=== PATIENT | male | born 1970 ===

== ENCOUNTER 2017-02-21 17:46 | Emergency (ER) | payer OTHER ==
[2017-02-21 17:50] VITALS: BMI 35.1
[2017-02-21 18:48] VITALS: RESP 18; TEMP 98.1; O2SAT 97
--- NOTE | 2017-02-21 18:52 | RAD ---
HISTORY: Chest pain. COMPARISON: No prior. TECHNIQUE: Chest PA and lateral FINDINGS: LUNGS: No active pulmonary disease. PLEURA: No significant pleural effusion identified. No pneumothorax apparent. CARDIOVASCULAR: Normal. OSSEOUS STRUCTURES: No significant abnormalities. VISUALIZED UPPER ABDOMEN: Normal. OTHER FINDINGS: None. IMPRESSION: No active disease. No preliminary report provided by emergency department personnel.
[2017-02-21 18:54] LABS: BASO # 0.03 K/mm3 (0.0-2.0); BASO % 0.4 % (0.0-3.0); EOS # 0.1 (0.0-0.7); GRAN # 4.71 (1.4-6.5); GRAN % 67.1 % (50.0-68.0); HEMOGLOBIN 15.4 g/dL (14.0-18.0); LYMPH # 1.5 (1.2-3.4); LYMPH % 21.4 % (22.0-35.0); MEAN CELL VOLUME 82.8 fl (80.0-105.0); MEAN CORPUSCULAR HEMOGLOBIN 29.8 pg (25.0-35.0); MEAN PLATELET VOLUME 9.8 fl (7.0-11.0); MONO # 0.6 (0.1-0.6); MONO % 9.1 % (1.0-6.0); PLATELET COUNT 227 10^3/uL (120.0-450.0); RBC 5.17 10^6/uL (3.5-6.1); RED CELL DISTRIBUTION WIDTH 12.2 % (11.5-14.5)
[2017-02-21 18:57] LABS: ALB/GLOB RATIO 1.2 (1.1-1.8); ALBUMIN 4.1 g/dL (3.0-4.8); ALT/SGPT 82 U/L (7-56); AST/SGOT 41 U/L (15-59); BLOOD UREA NITROGEN 14 mg/dL (7-21); GFR AFRICAN-AMERICAN > 60; GFR NON-AFRICAN AMERICAN > 60
[2017-02-21 19:07] LABS: TROPONIN I < 0.01 ng/mL
--- NOTE | 2017-02-21 19:36 | ED PDOC ---
Arrival/HPI - General Chief Complaint: Chest Pain Time Seen by Provider: 02/21/17 18:15 Historian: Patient - History of Present Illness Narrative History of Present Illness (Text): 02/21/17 19:44 A 46 year old male presents to the emergency department complaining of left sided chest pain daily for months. Notes pain radiates to left arm and burning sensation, actually feels better with exertion. Per ems he has been to [facility] three times in the past couple of weeks for similar symptoms and pt confirms this. He says "they all know me there." Patient notes taking Nitro prior to arrival with relief. Patient notes some shortness of breath but denies any other complaints at this time. Currently doesn't have any chest pain. Reports he had a cardiac catheterization done in 2014, which showed no blockage. Medications: Gabapentin, Flexeril, Naproxen (for migraines) Time/Duration: > month Symptom Onset: Sudden Symptom Course: Unchanged Activities at Onset: Rest Context: Home Past Medical History - Provider Review Nursing Documentation Reviewed: Yes - Cardiac Hx Cardiac Disorders: Yes Hx Angina: Yes - Psychiatric Hx Psychophysiologic Disorder: Yes Hx Substance Use: No Family/Social History - Physician Review Nursing Documentation Reviewed: Yes Family/Social History: No Known Family HX Smoking Status: Former Smoker Hx Alcohol Use: No Hx Substance Use: No Allergies/Home Meds Allergies/Adverse Reactions: Allergies No Known Allergies Allergy (Verified 02/21/17 17:50) Home Medications: Home Meds Medication Instructions Recorded Confirmed Acetaminophen [Tylenol Extra 500 mg PO Q6 02/21/17 02/21/17 Strength] Aspirin [Ecotrin] 81 mg PO DAILY 02/21/17 02/21/17 Cyclobenzaprine [Flexeril] 5 mg PO DAILY 02/21/17 02/21/17 Gabapentin [Gralise] 300 mg PO BID 02/21/17 02/21/17 Meclizine HCl [Travel Sickness] 1 tab PO DAILY PRN 02/21/17 02/21/17 Naproxen Sodium [Aleve] 220 mg PO 02/21/17 Nitroglycerin 0.4 mg SL PRN PRN 02/21/17 02/21/17 Ranitidine HCl [Zantac] 150 mg PO HS 02/21/17 02/21/17 diaZEpam [Valium] 5 mg PO DAILY PRN 02/21/17 02/21/17 diltiaZEM [Cardizem] 120 mg PO DAILY 02/21/17 02/21/17 Review of Systems - Physician Review All systems were reviewed & negative as marked: Yes - Review of Systems Respiratory: SOB Cardiovascular: Chest Pain Musculoskeletal: Other (left arm pain) Physical Exam Vital Signs Reviewed: Yes Vital Signs Temp Pulse Resp BP Pulse Ox 02/21/17 19:47 82 18 135/75 97 02/21/17 17:59 98.1 F 89 18 149/94 H 97 Temperature: Afebrile Blood Pressure: Hypertensive Pulse: Regular Respiratory Rate: Normal Appearance: Positive for: Well-Appearing, Non-Toxic, Comfortable Pain Distress: None Mental Status: Positive for: Alert and Oriented X 3 - Systems Exam Head: Present: Atraumatic, Normocephalic Pupils: Present: PERRL Extroacular Muscles: Present: EOMI Conjunctiva: Present: Normal Mouth: Present: Moist Mucous Membranes Neck: Present: Normal Range of Motion Respiratory/Chest: Present: Clear to Auscultation, Good Air Exchange. No: Respiratory Distress, Accessory Muscle Use Cardiovascular: Present: Regular Rate and Rhythm, Normal S1, S2. No: Murmurs Abdomen: Present: Normal Bowel Sounds. No: Tenderness, Distention, Peritoneal Signs Back: Present: Normal Inspection Upper Extremity: Present: Normal Inspection. No: Cyanosis, Edema Lower Extremity: Present: Normal Inspection. No: Edema Neurological: Present: GCS=15, CN II-XII Intact, Speech Normal Skin: Present: Warm, Dry, Normal Color. No: Rashes Psychiatric: Present: Alert, Oriented x 3, Normal Insight, Normal Concentration Medical Decision Making ED Course and Treatment: 02/21/17 18:54 chest xray: Creator : Quincy De La Cruz MD IMPRESSION: No active disease. EKG: Ordered, reviewed, and independently interpreted the EKG. Rate : 87 BPM Rhythm : NSR Interpretation : normal axis, normal intervals, no acute ischemia 1999 the pt is sitting up in a chair, appears well, no distress, no chest pain at this time. on further questioning he says he was offered a cardiac cath at [facility] [place] weeks ago and refused and he still does not wish to have one. I disc options for doing a repeat trop at 3 hours vs admission overnight for observation. he does not wish to stay for either of these. he will call his network operations project manager tomorrow for follow up and return if worse. - Lab Interpretations Lab Results: 02/21/17 18:35 02/21/17 18:35 Lab Results 02/21/17 18:35: Sodium 139, Potassium 3.8, Chloride 101, Carbon Dioxide 26, Anion Gap 16, BUN 14, Creatinine 1.0, Est GFR ( Amer) > 60, Est GFR (Non- Af Amer) > 60, Random Glucose 94, Calcium 9.0, Total Bilirubin 0.6, AST 41, ALT 82 H, Alkaline Phosphatase 118, Troponin I < 0.01, Total Protein 7.5, Albumin 4.1, Globulin 3.4, Albumin/Globulin Ratio 1.2 02/21/17 18:35: WBC 7.0, RBC 5.17, Hgb 15.4, Hct 42.8, MCV 82.8, MCH 29.8, MCHC 36.0, RDW 12.2, Plt Count 227, MPV 9.8, Gran % 67.1, Lymph % (Auto) 21.4 L, [place] % (Auto) 9.1 H, Eos % (Auto) 2.0, Baso % (Auto) 0.4, Gran # 4.71, Lymph # 1.5, [place] # 0.6, Eos # 0.1, Baso # 0.03 I have reviewed the lab results: Yes - RAD Interpretation Radiology Orders: 02/21/17 18:20 CHEST TWO VIEWS (PA/LAT) [RAD] Stat - EKG Interpretation Interpreted by ED Physician: Yes Type: 12 lead EKG - Scribe Statement The provider has reviewed the documentation as recorded by the Elian Ley Provider Scribe Attestation: All medical record entries made by the Elian were at my direction and personally dictated by me. I have reviewed the chart and agree that the record accurately reflects my personal performance of the history, physical exam, medical decision making, and the department course for this patient. I have also personally directed, reviewed, and agree with the discharge instructions and disposition. Disposition/Present on Arrival - Present on Arrival Any Indicators Present on Arrival: No History of DVT/PE: No History of Uncontrolled Diabetes: No Urinary Catheter: No History of Decub. Ulcer: No History Surgical Site Infection Following: None - Disposition Have Diagnosis and Disposition been Completed?: Yes Diagnosis: Chest pain Disposition: HOME/ ROUTINE Disposition Time: 20:02 Condition: STABLE Discharge Instructions (ExitCare): Chest Pain (ED) Additional Instructions: Please follow up with your network operations project manager tomorrow. Return to the ER for any worsening symptoms or for any other concerns. Referrals: Deanna Ahumada [Primary Care Provider] - Follow up with primary Forms: [employer] (Sao Tomean)
[2017-02-22 00:20] VITALS: BP 135/75; PULSE 82
--- NOTE | 2017-02-22 23:32 | CARD ---
APPROVED REPORT EKG Measurement Heart [id number] CO [id number] [id number] <Conclusion> Normal sinus rhythm Septal infarct, age undetermined Abnormal ECG
== END 2017-02-21 20:10 | disposition home or self-care (01) ==
LOC: ED 17:46 → MERGE 17:46 → ED 20:10
DX: R07.9 Chest pain, unspecified (principal)

== ENCOUNTER 2017-03-19 08:41 | Emergency (ER) | payer OTHER ==
[2017-03-19 08:41] VITALS: BMI 35.1
--- NOTE | 2017-03-19 09:03 | ED PDOC ---
Arrival/HPI - General Chief Complaint: Chest Pain Time Seen by Provider: 03/19/17 08:43 Historian: Patient - History of Present Illness Narrative History of Present Illness (Text): 03/19/17 09:02 A 46 year old male, whose past medical history includes hypertension, angina, and anxiety, arrives to the emergency department out of concern of recurring symptoms since 03:00. Patient reports experiencing trembling, spasms, numbness in the arms, anxiety, and sleep apnea. He states he has had the symptoms before many times, and today body felt immobile so he became concerned. Has visited his physician for symptoms various times. Patient mentions receiving catherization 07/[address] [facility] [place], results displayed no blockage. X-Rays were also taken for patient 2 months ago. Patient notes slight abdominal pain, but denies of any shortness of breath, nausea, vomiting, chills, or any other complaints. PMD: Dr. Tompkins Time/Duration: Other (today at 03:00) Symptom Onset: Gradual Symptom Course: Unchanged Context: Home Associated Symptoms (Text): 03/19/17 09:26 Patient awoken in the middle of the night with severe anxiety and chest spasm. No dyspnea. No diaphoresis. No nausea or vomiting. He has similar symptoms on a practically daily basis. He started to see a psychiatrist for these problems, but is currently not taking anything for his anxiety. He reports he takes Neurontin and Valium for his chest spasms. He reports a normal cardiac catheterization in 2014. He's been seen in [facility] multiple times for similar complaints. He was seen here approximately one month ago for similar complaints. He denies depression. No suicidal or homicidal ideation. 03/19/17 09:30 He took nitroglycerin this morning with some improvement. He takes daily aspirin. Past Medical History - Provider Review Nursing Documentation Reviewed: Yes - Cardiac Hx Cardiac Disorders: Yes Hx Angina: Yes Hx Hypertension: Yes - Psychiatric Hx Psychophysiologic Disorder: Yes Hx Anxiety: Yes Hx Substance Use: No Family/Social History - Physician Review Nursing Documentation Reviewed: Yes Family/Social History: No Known Family HX Smoking Status: Former Smoker Hx Alcohol Use: No Hx Substance Use: No Allergies/Home Meds Allergies/Adverse Reactions: Allergies ranitidine [From Zantac] Allergy (Verified 03/19/17 08:49) RASH quetiapine [From Seroquel] Adverse Reaction (Verified 03/19/17 08:49) URTICARIA Home Medications: Home Meds Medication Instructions Recorded Confirmed Acetaminophen [Tylenol Extra 500 mg PO Q6 02/21/17 03/19/17 Strength] Aspirin [Ecotrin] 81 mg PO DAILY 02/21/17 03/19/17 Gabapentin [Gralise] 300 mg PO BID 02/21/17 03/19/17 Meclizine HCl [Travel Sickness] 1 tab PO DAILY PRN 02/21/17 03/19/17 Nitroglycerin 0.4 mg SL PRN PRN 02/21/17 03/19/17 Ranitidine HCl [Zantac] 150 mg PO HS 02/21/17 03/19/17 diaZEpam [Valium] 5 mg PO DAILY PRN 02/21/17 03/19/17 diltiaZEM [Cardizem] 120 mg PO DAILY 02/21/17 03/19/17 Review of Systems - Physician Review All systems were reviewed & negative as marked: Yes - Review of Systems Constitutional: absent: Fevers, Night Sweats Respiratory: absent: SOB Cardiovascular: Chest Pain. absent: Palpitations, Syncope Gastrointestinal: Abdominal Pain (slightly). absent: Nausea, Vomiting Neurological: Other (numbness of arms, trembling, spasms). absent: Headache, Dizziness, Focal Weakness Psychiatric: Anxiety Physical Exam Vital Signs Reviewed: Yes Vital Signs Temp Pulse Resp BP BP Pulse Ox 03/19/17 09:29 97.7 F 84 16 143/81 97 03/19/17 08:59 154/97 H Temperature: Afebrile Blood Pressure: Hypertensive Pulse: Regular Respiratory Rate: Normal Appearance: Positive for: Well-Appearing, Other (Extremely anxious) Pain Distress: None Mental Status: Positive for: Alert and Oriented X 3 - Systems Exam Head: Present: Atraumatic, Normocephalic Pupils: Present: PERRL Extroacular Muscles: Present: EOMI Conjunctiva: Present: Normal Mouth: Present: Moist Mucous Membranes Pharnyx: No: ERYTHEMA, EXUDATE, TONSILS ENLARGED Neck: Present: Normal Range of Motion Respiratory/Chest: Present: Clear to Auscultation, Good Air Exchange. No: Respiratory Distress, Accessory Muscle Use Cardiovascular: Present: Regular Rate and Rhythm, Normal S1, S2. No: Murmurs Abdomen: Present: Normal Bowel Sounds. No: Tenderness, Distention, Peritoneal Signs Back: Present: Normal Inspection Upper Extremity: Present: Normal Inspection. No: Cyanosis, Edema Lower Extremity: Present: Normal Inspection. No: Edema Neurological: Present: GCS=15, CN II-XII Intact, Speech Normal, Motor Func Grossly Intact Skin: Present: Warm, Dry, Normal Color. No: Rashes Psychiatric: Present: Alert, Oriented x 3, Normal Insight, Normal Concentration , Anxious. No: Agitated, Depressed Mood, Suicidal Ideation, Homicidal Ideation , Delusional, Hallucinations, Intoxicated Medical Decision Making ED Course and Treatment: 03/19/17 09:06 Impression: 46 year old male with trembling, spasms, numbness of arms, and sleep apnea. Physical exam shows patient is anxious, otherwise rest of exam is normal. Plan: -- EKG -- Labs -- Urinalysis -- Reassess and disposition Prior Visits: Notes and results from previous visits were reviewed. On 02/21/2017 for left sided chest pain. Patient was discharged home. Progress Notes: 03/19/17 09:29 EKG shows normal sinus rhythm rate approximately [address] or T-wave changes 03/19/17 10:04 Patient is sleeping soundly, but easily aroused. He states that he feels better and wants to go home. He is going to call his mother to pick him up. I believe that this is anxiety related. 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 Follow up in the ER as needed. Offered observation or crisis evaluation and patient refuses both. - Lab Interpretations Lab Results: 03/19/17 09:20 03/19/17 09:20 Lab Results 03/19/17 09:20: Sodium 140, Potassium 3.9, Chloride 101, Carbon Dioxide 27, Anion Gap 16, BUN 15, Creatinine 0.9, Est GFR ( Amer) > 60, Est GFR (Non- Af Amer) > 60, Random Glucose 96, Calcium 9.1, Magnesium 1.9, Total Bilirubin 0.6, AST 49, ALT 100 H, Alkaline Phosphatase 118, Lactate Dehydrogenase 457, Total Creatine Kinase 91, Troponin I < 0.01, Total Protein 7.7, Albumin 4.4, Globulin 3.3, Albumin/Globulin Ratio 1.3 09/02/17 09:20: WBC 6.3, RBC 5.41, Hgb 16.1, Hct 45.5, MCV 84.1, MCH 29.8, MCHC 35.4, RDW 12.4, Plt Count 222, MPV 9.7, Gran % 65.3, Lymph % (Auto) 23.2, [place] % (Auto) 7.9 H, Eos % (Auto) 3.3, Baso % (Auto) 0.3, Gran # 4.14, Lymph # 1.5, [place] # 0.5, Eos # 0.2, Baso # 0.02 I have reviewed the lab results: Yes - Scribe Statement The provider has reviewed the documentation as recorded by the Jeremyibsuzie Brock Provider Scribe Attestation: All medical record entries made by the Scribe were at my direction and personally dictated by me. I have reviewed the chart and agree that the record accurately reflects my personal performance of the history, physical exam, medical decision making, and the department course for this patient. I have also personally directed, reviewed, and agree with the discharge instructions and disposition. Disposition/Present on Arrival - Present on Arrival Any Indicators Present on Arrival: No History of DVT/PE: No History of Uncontrolled Diabetes: No Urinary Catheter: No History of Decub. Ulcer: No History Surgical Site Infection Following: None - Disposition Have Diagnosis and Disposition been Completed?: Yes Diagnosis: Anxiety, Chest pain Disposition: HOME/ ROUTINE Disposition Time: 10:05 Patient Plan: Discharge Condition: GOOD Discharge Instructions (ExitCare): Chest Pain (ED), Anxiety (ED) Additional Instructions: Follow-up with your PMD and psychiatrist. Follow up in the ER as needed. Referrals: Deanna Ahumada [Primary Care Provider] - Follow up with primary Forms: [email or web address] ([place] Arabian)
[2017-03-19 09:31] VITALS: RESP 16; TEMP 97.7
[2017-03-19 09:39] LABS: ALB/GLOB RATIO 1.3 (1.1-1.8); ALKALINE PHOSPHATASE 118 U/L (38-126); ALT/SGPT 100 U/L (7-56); AST/SGOT 49 U/L (17-59); BILIRUBIN,TOTAL 0.6 mg/dL (0.2-1.3); BLOOD UREA NITROGEN 15 mg/dL (7-21); CALCIUM 9.1 mg/dL (8.4-10.5); CARBON DIOXIDE 27 mmol/L (21-33); CHLORIDE 101 mmol/L (98-107); GFR AFRICAN-AMERICAN > 60; GLUCOSE,RANDOM 96 mg/dL (70-110); MAGNESIUM 1.9 mg/dL (1.7-2.2); POTASSIUM 3.9 mmol/L (3.6-5.0); SODIUM 140 mmol/L (132-148); TOTAL PROTEIN 7.7 g/dL (5.8-8.3)
[2017-03-19 09:45] LABS: BASO # 0.02 K/mm3 (0.0-2.0); BASO % 0.3 % (0.0-3.0); EOS # 0.2 (0.0-0.7); EOS % 3.3 % (1.5-5.0); GRAN # 4.14 (1.4-6.5); GRAN % 65.3 % (50.0-68.0); HEMATOCRIT 45.5 % (42.0-52.0); LYMPH # 1.5 (1.2-3.4); LYMPH % 23.2 % (22.0-35.0); MEAN CELL VOLUME 84.1 fl (80.0-105.0); MEAN CORPUSCULAR HEMOGLOBIN 29.8 pg (25.0-35.0); MEAN CORPUSCULAR HGB CONC 35.4 g/dl (31.0-37.0); MEAN PLATELET VOLUME 9.7 fl (7.0-11.0); MONO # 0.5 (0.1-0.6); MONO % 7.9 % (1.0-6.0); RED CELL DISTRIBUTION WIDTH 12.4 % (11.5-14.5); WHITE BLOOD COUNT 6.3 10^3/ul (4.5-11.0)
[2017-03-19 09:51] LABS: TROPONIN I < 0.01 ng/mL
[2017-03-19 10:17] LABS: URINE BILIRUBIN NEGATIVE (NEGATIVE); URINE BLOOD TRACE-LYSED (NEGATIVE); URINE GLUCOSE (UA) NEGATIVE (NEGATIVE); URINE KETONE NEGATIVE (NEGATIVE); URINE LEUKOCYTE ESTERASE NEGATIVE Leu/uL (NEGATIVE); URINE PROTEIN NEGATIVE mg/dL (<30 mg/dL); URINE UROBILINOGEN 0.2 E.U./dL (<1 E.U./dL)
[2017-03-19 10:22] VITALS: BP 145/94; PULSE 85; O2SAT 98
[2017-03-19 10:22] LABS: URINE APPEARANCE CLEAR (CLEAR); URINE COLOR LIGHT YELLOW (YELLOW)
[2017-03-19 10:34] LABS: URINE BACTERIA TRACE (NEG); URINE RBC 0 - 2 /hpf (0-2); URINE WBC NEGATIVE /hpf (0-6)
--- NOTE | 2017-03-20 01:58 | CARD ---
APPROVED REPORT EKG Measurement Heart [id number] RI [id number] <Conclusion> Normal sinus rhythm Normal ECG
== END 2017-03-19 10:22 | disposition home or self-care (01) ==
LOC: ED 08:41
DX: F41.9 Anxiety disorder, unspecified (principal); R07.9 Chest pain, unspecified; I10 Essential (primary) hypertension; Z87.891 Personal history of nicotine dependence

== ENCOUNTER 2017-04-08 14:52 | Emergency (ER) | payer OTHER ==
[2017-04-08 14:52] VITALS: BMI 35.1
--- NOTE | 2017-04-08 15:27 | ED PDOC ---
Arrival/HPI - General Time Seen by Provider: 04/08/17 14:55 Historian: Patient ( ) - History of Present Illness Narrative History of Present Illness (Text): 04/08/17 15:23 46 yo male h/o HTN, Angina (on nitro SL PRN), ex-smoker, Migraine, Partial Sz, Anxiety, presents to the ED c/o left sided chest pain that started today. It's consent and radiates a bit also from the side of his lower left ribs. It feels sharp in nature. No nausea or shortness of breathe. He did not take anything to alleviate the symptoms. Associated with weakness. He had a cardiac cath but did not have stents placed. The same pain occurred 2 weeks ago. No fever , cough, urinary complaints, abdominal pain. It does not feel like his anxiety. He is getting depressed because of his medical issues. Denies SI or HI. No delusions or hallucinations. PMD: Dr. Ahumada Past Medical History - Provider Review Nursing Documentation Reviewed: Yes - Cardiac Hx Cardiac Disorders: Yes Hx Angina: Yes Hx Hypertension: Yes - Psychiatric Hx Psychophysiologic Disorder: Yes Hx Anxiety: Yes Hx Substance Use: No Family/Social History - Physician Review Nursing Documentation Reviewed: Yes Family/Social History: No Known Family HX Smoking Status: Former Smoker Hx Alcohol Use: No Hx Substance Use: No Allergies/Home Meds Allergies/Adverse Reactions: Allergies ranitidine [From Zantac] Allergy (Verified 03/19/17 08:49) RASH quetiapine [From Seroquel] Adverse Reaction (Verified 03/19/17 08:49) URTICARIA Home Medications: Home Meds Medication Instructions Recorded Confirmed Acetaminophen [Tylenol Extra 500 mg PO Q6 02/21/17 04/08/17 Strength] Aspirin [Ecotrin] 81 mg PO DAILY 02/21/17 04/08/17 Gabapentin [Gralise] 300 mg PO BID 02/21/17 04/08/17 Meclizine HCl [Travel Sickness] 1 tab PO DAILY PRN 02/21/17 04/08/17 Nitroglycerin 0.4 mg SL PRN PRN 02/21/17 04/08/17 Ranitidine HCl [Zantac] 150 mg PO HS 02/21/17 04/08/17 diaZEpam [Valium] 5 mg PO DAILY PRN 02/21/17 04/08/17 diltiaZEM [Cardizem] 120 mg PO DAILY 02/21/17 04/08/17 Review of Systems - Review of Systems Constitutional: Normal Eyes: Normal ENT: Normal Respiratory: Normal Cardiovascular: Chest Pain Gastrointestinal: Normal Genitourinary Male: Normal Musculoskeletal: Normal Skin: Normal Neurological: Normal Endocrine: Normal Hemo/Lymphatic: Normal Psychiatric: Normal Physical Exam Vital Signs Reviewed: Yes Vital Signs Temp Pulse Resp BP Pulse Ox 04/08/17 15:31 98.2 F 95 H 18 130/75 98 Temperature: Afebrile Blood Pressure: Normal Pulse: Regular Respiratory Rate: Normal Appearance: Positive for: Well-Appearing, Non-Toxic, Comfortable Pain Distress: None Mental Status: Positive for: Alert and Oriented X 3 - Systems Exam Head: Present: Atraumatic, Normocephalic Pupils: Present: PERRL Extroacular Muscles: Present: EOMI Conjunctiva: Present: Normal Mouth: Present: Moist Mucous Membranes Neck: Present: Normal Range of Motion Respiratory/Chest: Present: Clear to Auscultation, Good Air Exchange. No: Respiratory Distress, Accessory Muscle Use Cardiovascular: Present: Regular Rate and Rhythm, Normal S1, S2. No: Murmurs Abdomen: Present: Normal Bowel Sounds. No: Tenderness, Distention, Peritoneal Signs Back: Present: Normal Inspection Upper Extremity: Present: Normal Inspection. No: Cyanosis, Edema Lower Extremity: Present: Normal Inspection. No: Edema Neurological: Present: GCS=15, CN II-XII Intact, Speech Normal Skin: Present: Warm, Dry, Normal Color. No: Rashes Psychiatric: Present: Alert, Oriented x 3, Normal Insight, Normal Concentration Medical Decision Making ED Course and Treatment: 04/08/17 15:32 46 yo with chest pain r/o ACS -- Labs -- EKG, CXR -- Nitro SL -- Aspirin -- Reevaluate and disposition Leaving Against Medical Advice (AMA): The patient is choosing to leave against medical advice because he's feeling better. I have personally explained to the patient that choosing to do so may result in permanent bodily harm or . I have discussed at great length that without further evaluation and monitoring there may be unforeseen circumstances and/or deterioration causing permanent bodily harm or as a result of their choice. The patient is alert, oriented, and shows the mental capacity to make clear decisions regarding the patients health care at this time. The patient continues to wish to leave against medical advice. The patient has been advised that they should return to the emergency room immediately if they change their mind at any time, or if their condition begins to change or worsen in any way. - Lab Interpretations Lab Results: 04/08/17 15:45 04/08/17 15:45 Lab Results 04/08/17 15:45: Sodium 139, Potassium 4.3, Chloride 102, Carbon Dioxide 27, Anion Gap 14, BUN 14, Creatinine 1.0, Est GFR ( Amer) > 60, Est GFR (Non- Af Amer) > 60, Random Glucose 97, Calcium 9.3, Magnesium 1.9, Total Bilirubin 0.5, AST 71 H D, ALT 132 H, Alkaline Phosphatase 119, Lactate Dehydrogenase 508 , Total Creatine Kinase 103, Troponin I < 0.01, Total Protein 7.3, Albumin 4.2, Globulin 3.1, Albumin/Globulin Ratio 1.4 04/08/17 15:45: PT 10.9, INR 1.01, APTT 26.7 04/08/17 15:45: WBC 6.5, RBC 5.20, Hgb 15.4, Hct 43.7, MCV 84.0, MCH 29.6, MCHC 35.2, RDW 12.3, Plt Count 218, MPV 9.7, Gran % 70.0 H, Lymph % (Auto) 19.5 L, [place] % (Auto) 8.0 H, Eos % (Auto) 2.2, Baso % (Auto) 0.3, Gran # 4.52, Lymph # 1.3, [place] # 0.5, Eos # 0.1, Baso # 0.02 - RAD Interpretation Radiology Orders: 04/08/17 15:19 CHEST PORTABLE [RAD] Stat - EKG Interpretation Interpreted by ED Physician: Yes (NSR [address] elevations, nl intervals ) Type: 12 lead EKG - Medication Orders Current Medication Orders: Discontinued Medications Aspirin (Aspirin) 325 mg PO STAT STA Stop: 04/08/17 15:20 Last Admin: 04/08/17 15:42 Dose: 325 mg Nitroglycerin (Nitrostat Sl Tab) 0.4 mg SL STAT STA Stop: 04/08/17 15:20 Last Admin: 04/08/17 15:49 Dose: Not Given Non-Admin Reason: Patient Refused Disposition/Present on Arrival - Present on Arrival Any Indicators Present on Arrival: No History of DVT/PE: No History of Uncontrolled Diabetes: No Urinary Catheter: No History Surgical Site Infection Following: None - Disposition Have Diagnosis and Disposition been Completed?: Yes Diagnosis: Chest pain Disposition: AGAINST MEDICAL ADVICE Disposition Time: 16:56 Patient Plan: Discharge Patient Problems: Current Active Problems Problem Status Onset Chest pain Acute Condition: IMPROVED Discharge Instructions (ExitCare): Chest Pain (ED) Additional Instructions: Mr Loco, thank you for letting us take care of you today. Your provider was Dr. Morgan. You were treated for Chest and Side Pain. The emergency medical care you received today was directed at your acute symptoms. If you were prescribed any medication, please fill it and take as directed. It may take several days for your symptoms to resolve. Return to the Emergency Department if your symptoms worsen, do not improve, or if you have any other problems. Please contact your doctor or call one of the physicians/clinics you have been referred to that are listed on the Patient Visit Information form that is included in your discharge packet. Bring any paperwork you were given at discharge with you along with any medications you are taking to your follow up visit. Our treatment cannot replace ongoing medical care by a primary care provider (PCP) outside of the emergency department. Thank you for allowing the [facility] team to be part of your care today. If you had an X-Ray or CT scan: A Radiologist will review the ED reading if any change in treatment is needed we will contact you. If you had a blood, urine, or wound culture: It will take several days for the results, if any change in treatment is needed we will contact you. If you had an STI test: It will take 48 hours for the results. Please call after 1 week if you have not heard back. Referrals: Deanna Ahumada [Primary Care Provider] - Follow up with primary Forms: [employer] (Amharic), WORK NOTE
[2017-04-08 15:32] VITALS: RESP 18; TEMP 98.2
[2017-04-08 15:54] LABS: BASO # 0.02 K/mm3 (0.0-2.0); BASO % 0.3 % (0.0-3.0); EOS # 0.1 (0.0-0.7); EOS % 2.2 % (1.5-5.0); GRAN # 4.52 (1.4-6.5); HEMATOCRIT 43.7 % (42.0-52.0); LYMPH # 1.3 (1.2-3.4); LYMPH % 19.5 % (22.0-35.0); MEAN CORPUSCULAR HEMOGLOBIN 29.6 pg (25.0-35.0); MEAN CORPUSCULAR HGB CONC 35.2 g/dl (31.0-37.0); MEAN PLATELET VOLUME 9.7 fl (7.0-11.0); MONO # 0.5 (0.1-0.6); RED CELL DISTRIBUTION WIDTH 12.3 % (11.5-14.5); WHITE BLOOD COUNT 6.5 10^3/ul (4.5-11.0)
[2017-04-08 16:07] LABS: ALB/GLOB RATIO 1.4 (1.1-1.8); ALKALINE PHOSPHATASE 119 U/L (38-126); ALT/SGPT 132 U/L (7-56); AST/SGOT 71 U/L (17-59); BILIRUBIN,TOTAL 0.5 mg/dL (0.2-1.3); BLOOD UREA NITROGEN 14 mg/dL (7-21); CALCIUM 9.3 mg/dL (8.4-10.5); CARBON DIOXIDE 27 mmol/L (21-33); CHLORIDE 102 mmol/L (98-107); GFR AFRICAN-AMERICAN > 60; GLUCOSE,RANDOM 97 mg/dL (70-110); MAGNESIUM 1.9 mg/dL (1.7-2.2); POTASSIUM 4.3 mmol/L (3.6-5.0); SODIUM 139 mmol/L (132-148); TOTAL PROTEIN 7.3 g/dL (5.8-8.3)
[2017-04-08 16:20] LABS: TROPONIN I < 0.01 ng/mL
--- NOTE | 2017-04-08 16:27 | RAD ---
HISTORY: Upper chest pain. Technique: Single view portable semi erect @ 15:39. COMPARISON: 02/21/2017. FINDINGS: LUNGS: No active pulmonary disease. PLEURA: No significant pleural effusion identified, no pneumothorax apparent. CARDIOVASCULAR: Normal. OSSEOUS STRUCTURES: No significant abnormalities. VISUALIZED UPPER ABDOMEN: Normal. OTHER FINDINGS: None. IMPRESSION: No active disease. No significant interval change compared to the prior examination(s).
[2017-04-08 16:45] LABS: INR 1.01 (0.93-1.08); PARTIAL THROMBOPLASTIN TIME 26.7 Seconds (23.7-30.8)
[2017-04-08 17:20] VITALS: BP 129/76; PULSE 90; O2SAT 100
--- NOTE | 2017-04-09 01:03 | CARD ---
APPROVED REPORT EKG Measurement Heart [id number] [place] 136P38 [id number] <Conclusion> Normal sinus rhythm Normal ECG
--- NOTE | 2017-04-09 01:04 | CARD ---
APPROVED REPORT EKG Measurement Heart [id number] 138P40 [id number] <Conclusion> Normal sinus rhythm Normal ECG
== END 2017-04-08 16:50 | disposition left against medical advice (07) ==
LOC: ED 14:52
DX: R07.9 Chest pain, unspecified (principal); I20.9 Angina pectoris, unspecified; I10 Essential (primary) hypertension; Z87.891 Personal history of nicotine dependence

== ENCOUNTER 2017-04-11 14:27 | Emergency (ER) | payer OTHER ==
[2017-04-11 14:27] VITALS: BMI 35.1
--- NOTE | 2017-04-11 14:44 | ED PDOC ---
Arrival/HPI - General Time Seen by Provider: 04/11/17 14:40 Historian: Patient - History of Present Illness Narrative History of Present Illness (Text): 04/11/17 14:44 A 46 year old male presents to the emergency department complaining of intermittent episodes of left flank pain for 2 weeks. Patient reports he has experienced 3 episodes and describes the pain as a pressure sensation, which resolves spontaneously. Patient denies any fever, chills, nausea, vomiting, abdominal pain, urinary symptoms, chest pain, shortness of breath or any other complaints. Time/Duration: Other (2 weeks) Symptom Course: Intermittent Quality: Other Context: Home Past Medical History - Provider Review Nursing Documentation Reviewed: Yes - Infectious Disease Hx of Infectious Diseases: None - Cardiac Hx Cardiac Disorders: Yes Hx Angina: Yes Hx Hypertension: Yes - Neurological Hx Migraine: Yes Hx Seizures: Yes - Psychiatric Hx Psychophysiologic Disorder: Yes Hx Anxiety: Yes Hx Substance Use: No - Surgical History Other/Comment: cardaic cath - Anesthesia Hx Anesthesia: Yes Hx Anesthesia Reactions: No Hx Malignant Hyperthermia: No Family/Social History - Physician Review Nursing Documentation Reviewed: Yes Family/Social History: No Known Family HX Smoking Status: Former Smoker Hx Alcohol Use: No Hx Substance Use: No Allergies/Home Meds Allergies/Adverse Reactions: Allergies ranitidine [From Zantac] Allergy (Verified 03/19/17 08:49) RASH quetiapine [From Seroquel] Adverse Reaction (Verified 03/19/17 08:49) URTICARIA Home Medications: Home Meds Medication Instructions Recorded Confirmed Acetaminophen [Tylenol Extra 500 mg PO Q6 02/21/17 04/08/17 Strength] Aspirin [Ecotrin] 81 mg PO DAILY 02/21/17 04/08/17 Gabapentin [Gralise] 300 mg PO BID 02/21/17 04/08/17 Meclizine HCl [Travel Sickness] 1 tab PO DAILY PRN 02/21/17 04/08/17 Nitroglycerin 0.4 mg SL PRN PRN 02/21/17 04/08/17 Ranitidine HCl [Zantac] 150 mg PO HS 02/21/17 04/08/17 diaZEpam [Valium] 5 mg PO DAILY PRN 02/21/17 04/08/17 diltiaZEM [Cardizem] 120 mg PO DAILY 02/21/17 04/08/17 Physical Exam - Physical Exam Narrative Physical Exam (Text): - Review of Systems Constitutional: Normal. absent: Fatigue, Weight Change, Fevers Eyes: Normal ENT: denies sore throat, denies tristhmus Respiratory: Normal. absent: SOB, Cough, Sputum Cardiovascular: absent: Chest Pain, Palpitations, Syncope Gastrointestinal: Normal. absent: Abdominal Pain, Diarrhea, Nausea, Vomiting Genitourinary: Normal. absent: Dysuria, Frequency, Hematuria Musculoskeletal: (+) Left flank pain absent: Arthralgias, Neck Pain Skin: no rashes, no erythema Neurological: absent: Focal Weakness Endocrine: Normal Hemo/Lymphatic: Normal Psychiatric: No suicidal or homicidal ideations Physical exam Patient appears age appropriate in no distress, speaking full sentences without difficulty - Systems Exam Head: Present: Atraumatic, Normocephalic Pupils: Present: PERRL Extroacular Muscles: Present: EOMI Conjunctiva: Present: Normal Mouth: Present: Moist Mucous Membranes Neck: Present: Normal Range of Motion. No: MIDLINE TENDERNESS, Paraspinal Tenderness Respiratory/Chest: Present: Clear to Auscultation, Good Air Exchange. No: Respiratory Distress, Accessory Muscle Use, Tachypneic Cardiovascular: Present: Regular Rate and Rhythm, Normal S1, S2, Peripheal Pulses Present. No: Murmurs Abdomen: Present: Normal Bowel Sounds. No: Tenderness, Distention, Peritoneal Signs, Rebound, Guarding Back: Present: Normal Inspection. No: Midline Tenderness, Paraspinal Tenderness Upper Extremity: Present: Normal Inspection. No: Cyanosis, Edema Lower Extremity: Present: Normal Inspection. No: Edema Neurological: Present: GCS=15, Speech Normal, cranial nerves II through XII fully intact with no cerebellar abnormality, neurosensory fully intact. No focal neurological deficits. Skin: Present: Warm, Dry, Normal Color. No: Rashes Lymphatic: Present: OX3, NI, NC Psychiatric: Present: Alert, Oriented x 3, Normal Insight, Normal Concentration Vital Signs Temp Pulse Resp BP Pulse Ox 04/11/17 18:01 79 18 148/89 98 04/11/17 15:09 89 18 157/97 H 98 04/11/17 14:50 98.7 F 89 18 157/97 H 98 Appearance: Positive for: Well-Appearing, Non-Toxic, Comfortable Pain Distress: None Mental Status: Positive for: Alert and Oriented X 3 Medical Decision Making ED Course and Treatment: 04/11/17 14:44 Impression: A 46 year old male with left flank pain. Physical exam unremarkable. Differential Diagnosis included but are not limited to: Renal colic vs. Musculoskeletal Plan: -- Abdomen and pelvis CT -- EKG -- Labs -- Urinalysis -- Toradol and IV fluids -- Reassess and disposition Prior Visits: Previous records reviewed, patient was in the emergency department on 04/08/17, signed out AGAINST MEDICAL ADVICE. Patient was seen prior to this on 03/19/17 with numbness of his arms, trembling, spasms, anxiety. Patient was discharged home. Progress Notes: 04/11/17 16:59 pt resting comfortably in bed, in no distress CT read pending 04/11/17 17:33 CT Abdomen and Pelvis without intravenous contrast Creator : FREDDY DURON MD IMPRESSION: 1. 2 mm nonobstructing stone in the lower pole of the right kidney. No hydronephrosis or obstructive uropathy. 2. No CT evidence for acute appendicitis. 3. Mild colonic diverticulosis is also gliosis diverticulitis 04/11/17 17:46 CT IMPRESSION: 1. 2 mm nonobstructing stone in the lower pole of the right kidney. No hydronephrosis or obstructive uropathy. 2. No CT evidence for acute appendicitis. 3. Mild colonic diverticulosis is also gliosis diverticulitis pt in no distress states pain much better states he feels comfortable being dc'd home with outpatient f/u pt also informed that he has hematuria and need to f/u with his PMD for further w/u and testing Pt states he understands to return to the ER right away for new or worsening symptoms or for inability to f/u with PMD or specialist as instructed. Patient states that he fully agrees with and understands discharge instructions. States that he agrees with the plan and disposition. Verbalized and repeated discharge instructions and plan. I have given the patient opportunity to ask any additional questions. - Lab Interpretations Lab Results: 04/11/17 15:20 04/11/17 15:20 Lab Results 04/11/17 16:00: Urine Color Straw, Urine Appearance Clear, Urine pH 7.5, Ur Specific [place] 1.010, Urine Protein Negative, Urine Glucose (UA) Negative, Urine Ketones Negative, Urine Blood Trace-intact H, Urine Nitrate Negative, Urine Bilirubin Negative, Urine Urobilinogen 0.2, Ur Leukocyte Esterase Negative , Urine RBC 0 - 2, Urine WBC 0 - 2, Ur Epithelial Cells 0 - 2 04/11/17 15:20: PT 10.8, INR 1.00, APTT 26.3 04/11/17 15:20: WBC 7.3, RBC 5.26, Hgb 15.6, Hct 43.7, MCV 83.1, MCH 29.7, MCHC 35.7, RDW 12.3, Plt Count 231, MPV 9.8, Gran % 73.9 H, Lymph % (Auto) 16.8 L, [place] % (Auto) 7.8 H, Eos % (Auto) 1.2 L, Baso % (Auto) 0.3, Gran # 5.37, Lymph # 1.2, [place] # 0.6, Eos # 0.1, Baso # 0.02 04/11/17 15:20: Sodium 141, Potassium 4.3, Chloride 102, Carbon Dioxide 30, Anion Gap 13, BUN 15, Creatinine 0.9, Est GFR ( Amer) > 60, Est GFR (Non- Af Amer) > 60, Random Glucose 95, Calcium 9.5, Total Bilirubin 0.6, AST 51, ALT 113 H, Alkaline Phosphatase 115, Lactate Dehydrogenase 504, Total Creatine Kinase 88, Troponin I < 0.01, Total Protein 7.5, Albumin 4.3, Globulin 3.2, Albumin/Globulin Ratio 1.3 I have reviewed the lab results: Yes - RAD Interpretation Radiology Orders: 04/11/17 14:57 ABD & PELVIS W/O PO OR IV CONT [CT] Stat - Medication Orders Current Medication Orders: Discontinued Medications Sodium Chloride (Sodium Chloride 0.9%) 1,000 mls @ 1,000 mls/hr IV .Q1H STA Stop: 04/11/17 15:55 Last Admin: 04/11/17 15:16 Dose: 1,000 mls/hr eMAR Start Stop Document 04/11/17 15:16 DE (Rec: 04/11/17 15:16 DE [id number]) Intravenous Solution Start Date 04/11/17 Start Time 15:16 Ketorolac Tromethamine (Toradol) 30 mg IVP STAT STA Stop: 04/11/17 14:57 Last Admin: 04/11/17 15:16 Dose: 30 mg MAR Pain Assessment Document 04/11/17 15:16 NH (Rec: 04/11/17 15:17 DE [id number]) Pain Reassessment Is this a pain reassessment? No Sleep Is patient sleeping during reassessment? No Presence of Pain Presence of Pain No Pain Scale Used Pain Scale Used Numeric Location Pain Location Body Site Abdomen Description Description Intermittent IVP Administration Document 04/11/17 15:16 NH (Rec: 04/11/17 15:17 DE [id number]) Charges for Administration # of IVP Administrations 1 - Scribe Statement The provider has reviewed the documentation as recorded by the Jeremyibsuzie Chris Provider Scribe Attestation: All medical record entries made by the Scribe were at my direction and personally dictated by me. I have reviewed the chart and agree that the record accurately reflects my personal performance of the history, physical exam, medical decision making, and the department course for this patient. I have also personally directed, reviewed, and agree with the discharge instructions and disposition. Disposition/Present on Arrival - Present on Arrival Any Indicators Present on Arrival: No History of DVT/PE: No History of Uncontrolled Diabetes: No Urinary Catheter: No History Surgical Site Infection Following: None - Disposition Have Diagnosis and Disposition been Completed?: Yes Diagnosis: Flank pain Disposition: HOME/ ROUTINE Disposition Time: 17:48 Patient Plan: Discharge Patient Problems: Current Active Problems Problem Status Onset Flank pain Acute Condition: GOOD Discharge Instructions (ExitCare): Flank Pain (ED) Additional Instructions: Please take [id number] Motrin or Tylenol for pain PLEASE RETURN TO THE EMERGENCY DEPARTMENT FOR NEW OR WORSENING SYMPTOMS. RETURN RIGHT AWAY IF YOU CANNOT FOLLOW UP WITH YOUR PRIMARY CARE DOCTOR, CLINIC, OR SPECIALIST IN 1-2 DAYS. Referrals: Deanna Ahumada [Primary Care Provider] - Follow up with primary Lionel Harding MD [Staff Provider] - Follow up with primary Perfecto Hopkins MD [Staff Provider] - Follow up with primary
[2017-04-11] MEDS ORDERED: Sodium Chloride 0.9% 1,000 ML IV STA (14:56)
[2017-04-11 15:06] VITALS: RESP 18; TEMP 98.7; O2SAT 98
[2017-04-11 15:35] LABS: BASO # 0.02 K/mm3 (0.0-2.0); BASO % 0.3 % (0.0-3.0); EOS # 0.1 (0.0-0.7); EOS % 1.2 % (1.5-5.0); GRAN # 5.37 (1.4-6.5); GRAN % 73.9 % (50.0-68.0); HEMATOCRIT 43.7 % (42.0-52.0); LYMPH # 1.2 (1.2-3.4); LYMPH % 16.8 % (22.0-35.0); MEAN CELL VOLUME 83.1 fl (80.0-105.0); MEAN CORPUSCULAR HEMOGLOBIN 29.7 pg (25.0-35.0); MEAN CORPUSCULAR HGB CONC 35.7 g/dl (31.0-37.0); MEAN PLATELET VOLUME 9.8 fl (7.0-11.0); MONO # 0.6 (0.1-0.6); MONO % 7.8 % (1.0-6.0); RED CELL DISTRIBUTION WIDTH 12.3 % (11.5-14.5); WHITE BLOOD COUNT 7.3 10^3/ul (4.5-11.0)
[2017-04-11 15:42] LABS: ALB/GLOB RATIO 1.3 (1.1-1.8); ALKALINE PHOSPHATASE 115 U/L (38-126); ALT/SGPT 113 U/L (7-56); AST/SGOT 51 U/L (17-59); BILIRUBIN,TOTAL 0.6 mg/dL (0.2-1.3); BLOOD UREA NITROGEN 15 mg/dL (7-21); CALCIUM 9.5 mg/dL (8.4-10.5); CARBON DIOXIDE 30 mmol/L (21-33); CHLORIDE 102 mmol/L (98-107); GFR AFRICAN-AMERICAN > 60; GLUCOSE,RANDOM 95 mg/dL (70-110); SODIUM 141 mmol/L (132-148); TOTAL PROTEIN 7.5 g/dL (5.8-8.3)
[2017-04-11 15:44] LABS: POTASSIUM 4.3 mmol/L (3.6-5.0)
[2017-04-11 15:45] LABS: PARTIAL THROMBOPLASTIN TIME 26.3 Seconds (23.7-30.8)
[2017-04-11 16:02] LABS: TROPONIN I < 0.01 ng/mL
[2017-04-11 16:42] LABS: PH,URINE 7.5 (4.7-8.0); URINE BILIRUBIN NEGATIVE (NEGATIVE); URINE BLOOD TRACE-INTACT (NEGATIVE); URINE GLUCOSE (UA) NEGATIVE (NEGATIVE); URINE KETONE NEGATIVE (NEGATIVE); URINE LEUKOCYTE ESTERASE NEGATIVE Leu/uL (NEGATIVE); URINE PROTEIN NEGATIVE mg/dL (<30 mg/dL); URINE UROBILINOGEN 0.2 E.U./dL (<1 E.U./dL)
[2017-04-11 16:54] LABS: URINE APPEARANCE CLEAR (CLEAR); URINE COLOR STRAW (YELLOW)
[2017-04-11 17:03] LABS: URINE EPITHELIAL CELLS 0 - 2 /hpf (0-5); URINE RBC 0 - 2 /hpf (0-2); URINE WBC 0 - 2 /hpf (0-6)
--- NOTE | 2017-04-11 17:31 | CT ---
PROCEDURE: CT Abdomen and Pelvis without intravenous contrast HISTORY: Renal colic COMPARISON: None. TECHNIQUE: CT scan of the abdomen and pelvis was performed without administration of intravenous contrast. Oral contrast was not administered. Coronal and sagittal reformatted images were obtained. Radiation dose: Total exam DLP = 1130.86 MGy-cm. This CT exam was performed using one or more of the following dose reduction techniques: Automated exposure control, adjustment of the mA and/or kV according to patient size, and/or use of iterative reconstruction technique. FINDINGS: LOWER THORAX: The lung bases are clear. LIVER: The liver is normal in size. No focal lesion. GALLBLADDER AND BILE DUCTS: There are no calcified gallstones. PANCREAS: There is mild diffuse atrophy of the pancreas. SPLEEN: The spleen is normal in size. ADRENALS: Both adrenal glands are normal in size without discrete nodule. KIDNEYS AND URETERS: Both kidneys are normal in size. There is a 2 mm nonobstructing stone in the right lower pole. No hydronephrosis. VASCULATURE: No aortic aneurysm. BOWEL: The small bowel loops are normal in caliber. There is mild colonic diverticulosis without CT evidence for acute diverticulitis. No bowel dilatation or obstruction APPENDIX: Normal appendix. PERITONEUM: No free fluid. No free air. LYMPH NODES: No enlarged lymph nodes. BLADDER: Grossly normal in appearance. REPRODUCTIVE: The prostate gland is normal in size. BONES: No acute fracture. Within normal limits for the patient's age. OTHER FINDINGS: None. IMPRESSION: 1. 2 mm nonobstructing stone in the lower pole of the right kidney. No hydronephrosis or obstructive uropathy. 2. No CT evidence for acute appendicitis. 3. Mild colonic diverticulosis is also gliosis diverticulitis
[2017-04-11 18:01] VITALS: PULSE 79
[2017-04-11 19:49] VITALS: BP 130/89
--- NOTE | 2017-04-12 09:25 | CARD ---
APPROVED REPORT EKG Measurement Heart [id number] 148P44 [id number] <Conclusion> Normal sinus rhythm Normal ECG No change
== END 2017-04-11 18:20 | disposition home or self-care (01) ==
LOC: ED 14:27
DX: R10.9 Unspecified abdominal pain (principal); I20.9 Angina pectoris, unspecified; I10 Essential (primary) hypertension; Z87.891 Personal history of nicotine dependence
CPT/HCPCS: 74176; 80053; 81001; 82550; 83615; 84484; 85025; 85610; 85730; 93005; 96374; 99283; J1885; J7040

== ENCOUNTER 2017-04-15 19:10 | Emergency (ER) | payer OTHER ==
[2017-04-15 19:11] VITALS: BMI 35.1
[2017-04-15 19:24] VITALS: TEMP 98.8
--- NOTE | 2017-04-15 19:46 | ED PDOC ---
Arrival/HPI - General Historian: Patient, EMS <Juan Miguel Saravia - Last Filed: 04/15/17 20:10> <Telly Muro - Last Filed: 04/15/17 22:03> - General Chief Complaint: Psychiatric Evaluation Time Seen by Provider: 04/15/17 19:22 - History of Present Illness Narrative History of Present Illness (Text): 04/15/17 19:42 46 y/o male, pmh including htn/angina pectoralis (negative stress test 2 years ago)/migraine, psychiatric history of anxiety, allergic to ranitidine?/ quetiapine?, biba for the evaluation for the psychiatric behavior x 1 hour. As per the EMS (from the mother's complaint), the patient is out of the valium at home for his anxiety which he started to having abnormal and erratic behavior at home at home today which the mother doesn't feel safe which she called for the ambulance. Pt. is here at the ER stated that he has no homicidal or suicidal ideation, no auditory or visual hallucination, no numbness or tingling , no chest pain or shortness of breath, no other medical or psychological complaints except he would like the valium. Pt. stated that he has been on the valium 5mg/tablet po qd for the past 3 years by his neurologist Dr. Domi Wu to control his headache, recently being prescribed by his psychiatrist for the past half year with the 5mg/tablet po qd valium dosage which he occasionally been taking it twice daily so he is currently out of the valium with the last dosage 4 days ago. (Juan Miguel Saravia) Past Medical History - Provider Review Nursing Documentation Reviewed: Yes - Infectious Disease Hx of Infectious Diseases: None - Cardiac Hx Cardiac Disorders: Yes Hx Angina: Yes Hx Hypertension: Yes - Neurological Hx Migraine: Yes Hx Seizures: Yes - Psychiatric Hx Psychophysiologic Disorder: Yes Hx Anxiety: Yes Hx Substance Use: No - Surgical History Other/Comment: cardaic cath - Anesthesia Hx Anesthesia: Yes Hx Anesthesia Reactions: No Hx Malignant Hyperthermia: No <Juan Miguel Saravia - Last Filed: 04/15/17 20:10> Family/Social History - Physician Review Nursing Documentation Reviewed: Yes Family/Social History: Unknown Family HX Smoking Status: Former Smoker Hx Alcohol Use: No Hx Substance Use: No <Juan Miguel Saravia - Last Filed: 04/15/17 20:10> Allergies/Home Meds <Juan Miguel Saravia Q - Last Filed: 04/15/17 20:10> <Telly Muro T - Last Filed: 04/15/17 22:03> Allergies/Adverse Reactions: Allergies ranitidine [From Zantac] Allergy (Verified 03/19/17 08:49) RASH quetiapine [From Seroquel] Adverse Reaction (Verified 03/19/17 08:49) URTICARIA Home Medications: Home Meds Medication Instructions Recorded Confirmed Acetaminophen [Tylenol Extra 500 mg PO Q6 02/21/17 04/15/17 Strength] Aspirin [Ecotrin] 81 mg PO DAILY 02/21/17 04/15/17 Gabapentin [Gralise] 300 mg PO DAILY 02/21/17 04/15/17 Nitroglycerin 0.4 mg SL PRN PRN 02/21/17 04/15/17 diaZEpam [Valium] 5 mg PO DAILY 02/21/17 04/15/17 diltiaZEM [Cardizem] 240 mg PO DAILY 02/21/17 04/15/17 Amitriptyline HCl 10 mg PO HS 04/15/17 04/15/17 Butalbital/Aspirin/Caffeine 1 each PO Q8H PRN 04/15/17 04/15/17 [Xuuqst-Yuldcyi-Blsuy 50-325-40] Cyclobenzaprine [Cyclobenzaprine 5 mg PO DAILY 04/15/17 04/15/17 HCl] Review of Systems - Review of Systems Constitutional: absent: Fevers Eyes: absent: Vision Changes ENT: absent: Hearing Changes Respiratory: absent: SOB, Cough Cardiovascular: absent: Chest Pain Gastrointestinal: absent: Abdominal Pain, Nausea, Vomiting Psychiatric: Anxiety. absent: Depression, Suicidal Ideation <Juan Miguel Saravia Q - Last Filed: 04/15/17 20:10> Physical Exam Vital Signs Reviewed: Yes Temperature: Afebrile Blood Pressure: Hypertensive Pulse: Regular Respiratory Rate: Normal Appearance: Positive for: Well-Appearing, Non-Toxic, Comfortable Pain Distress: None Mental Status: Positive for: Alert and Oriented X 3 - Systems Exam Head: Present: Atraumatic, Normocephalic Pupils: Present: PERRL Extroacular Muscles: Present: EOMI Conjunctiva: Present: Normal Mouth: Present: Moist Mucous Membranes Neck: Present: Normal Range of Motion Respiratory/Chest: Present: Clear to Auscultation, Good Air Exchange. No: Respiratory Distress, Accessory Muscle Use Cardiovascular: Present: Regular Rate and Rhythm, Normal S1, S2. No: Murmurs Abdomen: Present: Normal Bowel Sounds. No: Tenderness, Distention, Peritoneal Signs Back: Present: Normal Inspection Upper Extremity: Present: Normal Inspection. No: Cyanosis, Edema Lower Extremity: Present: Normal Inspection. No: Edema Neurological: Present: GCS=15, CN II-XII Intact, Speech Normal, Motor Func Grossly Intact, Gait Normal, Memory Normal Skin: Present: Warm, Dry, Normal Color. No: Rashes Psychiatric: Present: Alert, Oriented x 3, Normal Insight, Normal Concentration <Juan Miguel Saravia - Last Filed: 04/15/17 20:10> Vital Signs Temp Pulse Resp BP Pulse Ox 04/15/17 19:34 96 H 18 161/96 H 96 04/15/17 19:17 98.8 F 93 H 18 172/105 H 98 Medical Decision Making <Juan Miguel Saravia - Last Filed: 04/15/17 20:10> <Telly Muro - Last Filed: 04/15/17 22:03> ED Course and Treatment: 04/15/17 19:47 -I spoke to the PES [place] which she will come to evaluate the patient -Labs/ua/uds -ekg -chest x-ray 04/15/17 20:50 -case discussed and sign out to the ER attending DR. Muro, he will follow up the labs/radiology results and speak to the PES after the psy evaluation. (Juan Miguel Saravia) 04/15/17 22:01 CXR no acute disease. Urinalysis negative. PES evaluated patient, recommend discharge follow up [facility]. (Telly Muro) - Lab Interpretations Lab Results: 04/15/17 20:03 04/15/17 20:03 Lab Results 04/15/17 20:45: Urine Color Straw, Urine Appearance Clear, Urine pH 6.5, Ur Specific [place] <= 1.005, Urine Protein Negative, Urine Glucose (UA) Negative, Urine Ketones Negative, Urine Blood Trace-lysed H, Urine Nitrate Negative, Urine Bilirubin Negative, Urine Urobilinogen 0.2, Ur Leukocyte Esterase Negative , Urine RBC 0 - 2, Urine WBC 0 - 2, Ur Epithelial Cells 0 - 2, Urine Bacteria Neg 04/15/17 20:45: Urine Opiates Screen Negative, Urine Methadone Screen Negative, Ur Barbiturates Screen Positive H, Ur Phencyclidine Scrn Negative, Ur Amphetamines Screen Negative, U Benzodiazepines Scrn Positive H, U Oth Cocaine Metabols Negative, U Cannabinoids Screen Negative 04/15/17 20:03: WBC 9.0 D, RBC 5.36, Hgb 16.1, Hct 44.5, MCV 83.0, MCH 30.0, MCHC 36.2, RDW 12.3, Plt Count 241, MPV 9.6, Gran % 73.1 H, Lymph % (Auto) 17.7 L, [place] % (Auto) 8.1 H, Eos % (Auto) 0.9 L, Baso % (Auto) 0.2, Gran # 6.59 H, Lymph # 1.6, [place] # 0.7 H, Eos # 0.1, Baso # 0.02 04/15/17 20:03: Alcohol, Quantitative < 10 04/15/17 20:03: Salicylates 2, Acetaminophen < 10.0 L 04/15/17 20:03: Sodium 140, Potassium 3.8, Chloride 100, Carbon Dioxide 31, Anion Gap 13, BUN 11, Creatinine 1.0, Est GFR ( Amer) > 60, Est GFR (Non- Af Amer) > 60, Random Glucose 104, Calcium 9.5, Total Bilirubin 0.7, AST 50, ALT 123 H, Alkaline Phosphatase 125, Total Protein 7.8, Albumin 4.5, Globulin 3.2, Albumin/Globulin Ratio 1.4 - RAD Interpretation Radiology Orders: 04/15/17 19:35 CHEST ONE VIEW [RAD] Stat - PA / [employer] / Resident Statement MD/DO has reviewed & agrees with the documentation as recorded. <Juan Miguel Saravia - Last Filed: 04/15/17 20:10> Disposition/Present on Arrival - Present on Arrival Any Indicators Present on Arrival: No History of DVT/PE: No History of Uncontrolled Diabetes: No Urinary Catheter: No History of Decub. Ulcer: No History Surgical Site Infection Following: None - Disposition Disposition Time: 20:59 <Juan Miguel Saravia - Last Filed: 04/15/17 20:10> - Disposition Have Diagnosis and Disposition been Completed?: Yes Patient Plan: Discharge <Telly Muro - Last Filed: 04/15/17 22:03> - Disposition Diagnosis: Anxiety Disposition: HOME/ ROUTINE Condition: STABLE Discharge Instructions (ExitCare): Anxiety (ED), Depression (ED) Referrals: [facility] [Outside] - Follow up with primary [facility] - Follow up with primary Forms: [employer] ([place]ian)
[2017-04-15 20:15] LABS: BASO # 0.02 K/mm3 (0.0-2.0); BASO % 0.2 % (0.0-3.0); EOS # 0.1 (0.0-0.7); EOS % 0.9 % (1.5-5.0); GRAN # 6.59 (1.4-6.5); GRAN % 73.1 % (50.0-68.0); HEMATOCRIT 44.5 % (42.0-52.0); LYMPH # 1.6 (1.2-3.4); LYMPH % 17.7 % (22.0-35.0); MEAN CORPUSCULAR HGB CONC 36.2 g/dl (31.0-37.0); MEAN PLATELET VOLUME 9.6 fl (7.0-11.0); MONO # 0.7 (0.1-0.6); MONO % 8.1 % (1.0-6.0); RED CELL DISTRIBUTION WIDTH 12.3 % (11.5-14.5)
[2017-04-15 20:24] LABS: ALB/GLOB RATIO 1.4 (1.1-1.8); ALKALINE PHOSPHATASE 125 U/L (38-126); ALT/SGPT 123 U/L (7-56); AST/SGOT 50 U/L (17-59); BILIRUBIN,TOTAL 0.7 mg/dL (0.2-1.3); BLOOD UREA NITROGEN 11 mg/dL (7-21); CALCIUM 9.5 mg/dL (8.4-10.5); CARBON DIOXIDE 31 mmol/L (21-33); CHLORIDE 100 mmol/L (95-110); GFR AFRICAN-AMERICAN > 60; GLUCOSE,RANDOM 104 mg/dL (70-110); POTASSIUM 3.8 mmol/L (3.6-5.0); SODIUM 140 mmol/L (132-148); TOTAL PROTEIN 7.8 g/dL (5.8-8.3)
[2017-04-15 21:27] LABS: PH,URINE 6.5 (4.7-8.0); URINE BILIRUBIN NEGATIVE (NEGATIVE); URINE BLOOD TRACE-LYSED (NEGATIVE); URINE GLUCOSE (UA) NEGATIVE (NEGATIVE); URINE KETONE NEGATIVE (NEGATIVE); URINE LEUKOCYTE ESTERASE NEGATIVE Leu/uL (NEGATIVE); URINE PROTEIN NEGATIVE mg/dL (<30 mg/dL); URINE UROBILINOGEN 0.2 E.U./dL (<1 E.U./dL)
[2017-04-15 21:33] LABS: URINE APPEARANCE CLEAR (CLEAR); URINE COLOR STRAW (YELLOW)
[2017-04-15 21:49] LABS: URINE BACTERIA NEG (NEG); URINE EPITHELIAL CELLS 0 - 2 /hpf (0-5); URINE RBC 0 - 2 /hpf (0-2); URINE WBC 0 - 2 /hpf (0-6)
[2017-04-15 22:11] VITALS: BP 157/88; PULSE 90; RESP 19; O2SAT 100
--- NOTE | 2017-04-16 11:41 | RAD ---
PROCEDURE: CHEST RADIOGRAPH, 1 VIEW HISTORY: medical clearance COMPARISON: 04/08/2017 FINDINGS: LUNGS: Clear. PLEURA: No pneumothorax or pleural fluid seen. CARDIOVASCULAR: Normal. OSSEOUS STRUCTURES: No significant abnormalities. VISUALIZED UPPER ABDOMEN: Normal. OTHER FINDINGS: None. IMPRESSION: No active disease.
--- NOTE | 2017-04-17 08:24 | CARD ---
APPROVED REPORT EKG Measurement Heart [id number] [place] 140P43 [id number] <Conclusion> Sinus tachycardia Otherwise normal ECG No change
== END 2017-04-15 22:10 | disposition home or self-care (01) ==
LOC: ED 19:10
DX: F41.9 Anxiety disorder, unspecified (principal)

== ENCOUNTER 2017-04-18 11:25 | Emergency (ER) | payer OTHER ==
[2017-04-18 11:25] VITALS: BMI 35.1
[2017-04-18 11:42] VITALS: TEMP 97.6; O2SAT 99
[2017-04-18 11:56] LABS: BASO # 0.02 K/mm3 (0.0-2.0); BASO % 0.3 % (0.0-3.0); EOS # 0.2 (0.0-0.7); GRAN # 3.93 (1.4-6.5); GRAN % 65.8 % (50.0-68.0); HEMATOCRIT 43.8 % (42.0-52.0); LYMPH # 1.4 (1.2-3.4); LYMPH % 22.7 % (22.0-35.0); MEAN CELL VOLUME 83.7 fl (80.0-105.0); MEAN CORPUSCULAR HEMOGLOBIN 29.4 pg (25.0-35.0); MEAN CORPUSCULAR HGB CONC 35.2 g/dl (31.0-37.0); MEAN PLATELET VOLUME 9.5 fl (7.0-11.0); MONO # 0.5 (0.1-0.6); MONO % 8.2 % (1.0-6.0); RED CELL DISTRIBUTION WIDTH 12.3 % (11.5-14.5)
--- NOTE | 2017-04-18 11:57 | ED PDOC ---
Arrival/HPI - General Historian: Patient - History of Present Illness Time/Duration: 1-3 hours Symptom Onset: Sudden Symptom Course: Intermittent, [place] Quality: Tightness Severity Level: Severe Activities at Onset: Rest Context: Home <ALLYN GRACE - Last Filed: 04/18/17 13:37> <JulesNikolay domínguez Rani - Last Filed: 04/18/17 14:43> - General Chief Complaint: Abdominal Pain Time Seen by Provider: 04/18/17 11:32 - History of Present Illness Narrative History of Present Illness (Text): 04/18/17 12:05 46yo M PMH anxiety, angina, and migraines who presents with LUQ pain that radiated b/l to back that started last night and resolved then came back earlier this morning. pain had sudden onset, described as tightness, and resolved by gabapentin, tylenol, pepcid and flexeril; at its worst, the pain is 10/10 but currently is at 2/10. pt says he gets anxious often, and at his last emergency department visit for similar pain, he was told to return to the emergency department if the pain returned. pt denies n/v/d, hematuria, dysuria, numbness/tingling in his legs, chest pain, shortness of breath, fevers or chills. also denies IVDA, smoking tobacco, or ETOH. pt is unemployed and denies any heavy lifting. (ALLYN GRACE) Past Medical History - Provider Review Nursing Documentation Reviewed: Yes - Past History Past History: Non-Contributing - Infectious Disease Hx of Infectious Diseases: None - Past Medical History Past Medical History: Non-Contributing - Cardiac Hx Cardiac Disorders: Yes Hx Angina: Yes Hx Hypertension: Yes - Pulmonary Hx Respiratory Disorders: No - Neurological Hx Seizures: Yes - Endocrine/Metabolic Hx Endocrine Disorders: No - Hematological/Oncological Hx Blood Disorders: No - Integumentary Hx Dermatological Disorder: No - Musculoskeletal/Rheumatological Hx Musculoskeletal Disorders: No - Gastrointestinal Hx Gastrointestinal Disorders: No - Psychiatric Hx Psychophysiologic Disorder: Yes Hx Anxiety: Yes Hx Substance Use: No - Surgical History Other/Comment: cardaic cath - Anesthesia Hx Anesthesia: Yes Hx Anesthesia Reactions: No Hx Malignant Hyperthermia: No <ALLYN GRACE - Last Filed: 04/18/17 13:37> Family/Social History - Physician Review Nursing Documentation Reviewed: Yes Family/Social History: No Known Family HX Smoking Status: Former Smoker Hx Alcohol Use: No Hx Substance Use: No <ALLYN GRACE - Last Filed: 04/18/17 13:37> Allergies/Home Meds <LALYN GRACE - Last Filed: 04/18/17 13:37> <Nikolay Jules - Last Filed: 04/18/17 14:43> Allergies/Adverse Reactions: Allergies ranitidine [From Zantac] Allergy (Verified 03/19/17 08:49) RASH quetiapine [From Seroquel] Adverse Reaction (Verified 03/19/17 08:49) URTICARIA Home Medications: Home Meds Medication Instructions Recorded Confirmed Acetaminophen [Tylenol Extra 500 mg PO Q6 02/21/17 04/18/17 Strength] Aspirin [Ecotrin] 81 mg PO DAILY 02/21/17 04/18/17 Gabapentin [Gralise] 300 mg PO DAILY 02/21/17 04/18/17 Nitroglycerin 0.4 mg SL PRN PRN 02/21/17 04/18/17 diaZEpam [Valium] 5 mg PO DAILY 02/21/17 04/18/17 diltiaZEM [Cardizem] 240 mg PO DAILY 02/21/17 04/18/17 Amitriptyline HCl 10 mg PO HS 04/15/17 04/18/17 Butalbital/Aspirin/Caffeine 1 each PO Q8H PRN 04/15/17 04/18/17 [Guptjx-Dgecizz-Alsda 50-325-40] Cyclobenzaprine [Flexeril] 5 mg PO DAILY 04/15/17 04/18/17 Review of Systems - Physician Review All systems were reviewed & negative as marked: Yes - Review of Systems Constitutional: absent: Fevers, Night Sweats Eyes: Normal ENT: Normal Respiratory: Normal. absent: SOB, Cough, Wheezing Cardiovascular: Normal. absent: Chest Pain, Edema, Calf Pain Gastrointestinal: Normal. absent: Stool Changes, Constipation, Diarrhea, Nausea , Vomiting Genitourinary Male: Normal. absent: Dysuria, Frequency, Hematuria Musculoskeletal: Normal, Back Pain. absent: Arthralgias, Neck Pain, Joint Swelling <ALLYN GRACE - Last Filed: 04/18/17 13:37> Physical Exam Vital Signs Reviewed: Yes Temperature: Afebrile Blood Pressure: Normal Pulse: Regular Respiratory Rate: Normal Appearance: Positive for: Well-Appearing Pain Distress: None Mental Status: Positive for: Alert and Oriented X 3 - Systems Exam Head: Present: Atraumatic, Normocephalic Pupils: Present: PERRL Extroacular Muscles: Present: EOMI Conjunctiva: Present: Normal Mouth: Present: Moist Mucous Membranes Neck: Present: Normal Range of Motion. No: MIDLINE TENDERNESS, Paraspinal Tenderness, JVD, Lymphadenopathy Respiratory/Chest: Present: Clear to Auscultation, Good Air Exchange. No: Respiratory Distress, Accessory Muscle Use, Wheezes Cardiovascular: Present: Regular Rate and Rhythm, Normal S1, S2. No: Murmurs Abdomen: Present: Normal Bowel Sounds. No: Tenderness, Distention, Peritoneal Signs, Guarding Back: Present: Normal Inspection. No: CVA Tenderness, Midline Tenderness, Paraspinal Tenderness Upper Extremity: Present: Normal Inspection Lower Extremity: Present: Normal Inspection, NORMAL PULSES, Neurovascularly Intact. No: Tenderness Neurological: Present: CN II-XII Intact, Speech Normal Skin: Present: Warm, Dry, Normal Color Psychiatric: Present: Alert, Oriented x 3, Anxious <ALLYN GRACE - Last Filed: 04/18/17 13:37> Vital Signs Temp Pulse Resp BP Pulse Ox 04/18/17 13:46 92 H 18 147/96 H 04/18/17 13:23 760 H 18 145/79 99 04/18/17 11:31 97.6 F 90 19 143/83 99 Medical Decision Making - Critical Care Critical Care Minutes: 30 minutes - Lab Interpretations I have reviewed the lab results: Yes <ALLYN GRACE - Last Filed: 04/18/17 13:37> <Nikolay Jules - Last Filed: 04/18/17 14:43> ED Course and Treatment: 04/18/17 12:12 Impression: 46yo M presenting with L flank pain x1 day, likely due to renal colic vs MSK pain Plan: - Reassess and disposition - Labs - UA Progress Notes: 04/18/17 12:16 CT Abdomen and Pelvis without intravenous contrast from 04/11/17: Creator : FREDDY DURON MD IMPRESSION: 1. 2 mm nonobstructing stone in the lower pole of the right kidney. No hydronephrosis or obstructive uropathy. 2. No CT evidence for acute appendicitis. 3. Mild colonic diverticulosis is also gliosis diverticulitis 04/18/17 13:27 reassessment: pt denies current pain and doesn't require refills on meds. Explained to pt to return to emergency department if severe flank pain, n/v, fevers, chills, hematuria or decrease in urine production. pt understands (ALLYN GRACE) A 46 year old male with abdominal and back pain. In agreement with resident note , which includes further HPI details. Patient was seen and evaluated with resident, came up with plan and treatment together. (Nikolay Jules) - Lab Interpretations Lab Results: 04/18/17 11:51 04/18/17 11:51 Lab Results 04/18/17 12:05: Urine Color Yellow, Urine Appearance Clear, Urine pH 7.0, Ur Specific [place] <= 1.005, Urine Protein Negative, Urine Glucose (UA) Negative, Urine Ketones Negative, Urine Blood Negative, Urine Nitrate Negative, Urine Bilirubin Negative, Urine Urobilinogen 0.2, Ur Leukocyte Esterase Negative 04/18/17 11:51: Sodium 136, Potassium 3.8, Chloride 99, Carbon Dioxide 29, Anion Gap 12, BUN 13, Creatinine 1.0, Est GFR ( Amer) > 60, Est GFR (Non- Af Amer) > 60, Random Glucose 109, Calcium 9.0, Total Bilirubin 0.6, AST 58, ALT 136 H, Alkaline Phosphatase 123, Total Protein 7.2, Albumin 4.3, Globulin 3.0, Albumin/Globulin Ratio 1.4, Lipase 44 04/18/17 11:51: PT 11.0, INR 1.02, APTT 27.1 04/18/17 11:51: WBC 6.0 D, RBC 5.23, Hgb 15.4, Hct 43.8, MCV 83.7, MCH 29.4, MCHC 35.2, RDW 12.3, Plt Count 218, MPV 9.5, Gran % 65.8, Lymph % (Auto) 22.7, [place] % (Auto) 8.2 H, Eos % (Auto) 3.0, Baso % (Auto) 0.3, Gran # 3.93, Lymph # 1.4, [place] # 0.5, Eos # 0.2, Baso # 0.02 <ALLYN GRACE - Last Filed: 04/18/17 13:37> - PA / DATA WAREHOUSING MANAGER / Resident Statement / has reviewed & agrees with the documentation as recorded. / has examined the patient and agrees with the treatment plan. - Scribe Statement The provider has reviewed the documentation as recorded by the Scribe <Nikolay Jules - Last Filed: 04/18/17 14:43> - Scribe Statement Celestina Chris Provider Scribe Attestation: All medical record entries made by the Scribe were at my direction and personally dictated by me. I have reviewed the chart and agree that the record accurately reflects my personal performance of the history, physical exam, medical decision making, and the department course for this patient. I have also personally directed, reviewed, and agree with the discharge instructions and disposition. (Nikolay Jules) Disposition/Present on Arrival - Present on Arrival Any Indicators Present on Arrival: No History of DVT/PE: No History of Uncontrolled Diabetes: No Urinary Catheter: No History of Decub. Ulcer: No History Surgical Site Infection Following: None - Disposition Have Diagnosis and Disposition been Completed?: Yes Disposition Time: 13:30 Patient Plan: Discharge <ALLYN GRACE - Last Filed: 04/18/17 13:37> <Nikolay Jules - Last Filed: 04/18/17 14:43> - Disposition Diagnosis: Muscular abdominal pain in left flank, Renal colic on left side Disposition: HOME/ ROUTINE Condition: GOOD Discharge Instructions (ExitCare): Renal Colic (ED), Renal Colic (GEN) Additional Instructions: - prescribed Flexeril and Motrin, please take as prescribed if needed - continue home meds - please return to emergency department if experience severe flank pain, nausea/ vomiting, fevers, chills, hematuria or decrease in urine production Prescriptions: Cyclobenzaprine [Cyclobenzaprine HCl] 10 mg PO TID PRN #15 tab PRN Reason: Pain, Mild (1-3) Ibuprofen [Motrin] 600 mg PO Q6 PRN #15 tab PRN Reason: Pain, Moderate (4-7) Referrals: Torrey Hawkins MD [Primary Care Provider] - Follow up with primary Forms: [employer] (Kinyarwanda)
[2017-04-18 12:04] LABS: ALB/GLOB RATIO 1.4 (1.1-1.8); ALKALINE PHOSPHATASE 123 U/L (38-126); ALT/SGPT 136 U/L (7-56); AST/SGOT 58 U/L (17-59); BILIRUBIN,TOTAL 0.6 mg/dL (0.2-1.3); BLOOD UREA NITROGEN 13 mg/dL (7-21); CARBON DIOXIDE 29 mmol/L (21-33); CHLORIDE 99 mmol/L (98-107); GFR AFRICAN-AMERICAN > 60; GLUCOSE,RANDOM 109 mg/dL (70-110); LIPASE 44 U/L (23-300); POTASSIUM 3.8 mmol/L (3.6-5.0); SODIUM 136 mmol/L (132-148); TOTAL PROTEIN 7.2 g/dL (5.8-8.3)
[2017-04-18 12:25] LABS: INR 1.02 (0.93-1.08); PARTIAL THROMBOPLASTIN TIME 27.1 Seconds (23.7-30.8)
[2017-04-18 12:55] LABS: URINE APPEARANCE CLEAR (CLEAR); URINE BILIRUBIN NEGATIVE (NEGATIVE); URINE BLOOD NEGATIVE (NEGATIVE); URINE COLOR YELLOW (YELLOW); URINE GLUCOSE (UA) NEGATIVE (NEGATIVE); URINE KETONE NEGATIVE (NEGATIVE); URINE LEUKOCYTE ESTERASE NEGATIVE Leu/uL (NEGATIVE); URINE PROTEIN NEGATIVE mg/dL (<30 mg/dL); URINE UROBILINOGEN 0.2 E.U./dL (<1 E.U./dL)
[2017-04-18 13:24] VITALS: RESP 18
[2017-04-18 13:46] VITALS: BP 147/96; PULSE 92
== END 2017-04-18 13:43 | disposition home or self-care (01) ==
LOC: ED 11:25
DX: R10.12 Left upper quadrant pain (principal); N23 Unspecified renal colic

== ENCOUNTER 2017-06-10 18:59 | Observation (INO) | payer OTHER ==
[2017-06-10 19:26] VITALS: BMI 35.1
--- NOTE | 2017-06-10 19:55 | ED PDOC ---
Arrival/HPI - General Chief Complaint: Male Genitourinary Time Seen by Provider: 06/10/17 19:18 Historian: Patient - History of Present Illness Narrative History of Present Illness (Text): 06/10/17 19:53 A 46 year old male, whose past medical history included kidney stones, htn, angina, anxiety, migraine, presents to the emergency department for bilateral flank pain, which began prior to arrival. The patient notes a subjective fever and chills, mild dysuria. He denies chest pain, cough, diarrhea, hematuria, or any other complaints at this time. Time/Duration: Prior to Arrival Symptom Onset: Sudden Activities at Onset: Rest Context: Sitting, Home Past Medical History - Provider Review Nursing Documentation Reviewed: Yes - Past History Past History: Non-Contributing - Infectious Disease Hx of Infectious Diseases: None - Past Medical History Past Medical History: Non-Contributing - Cardiac Hx Cardiac Disorders: Yes Hx Angina: Yes Hx Hypertension: Yes - Pulmonary Hx Respiratory Disorders: No - Neurological Hx Migraine: Yes - HEENT Hx HEENT Disorder: No - Renal Hx Kidney Stones: Yes - Endocrine/Metabolic Hx Endocrine Disorders: No - Hematological/Oncological Hx Blood Disorders: No - Integumentary Hx Dermatological Disorder: No - Musculoskeletal/Rheumatological Hx Musculoskeletal Disorders: No Hx Falls: Yes - Gastrointestinal Hx Gastroesophageal Reflux: Yes - Genitourinary/Gynecological Hx Genitourinary Disorders: No - Psychiatric Hx Psychophysiologic Disorder: Yes Hx Anxiety: Yes Hx Depression: Yes Hx Substance Use: No - Surgical History Other/Comment: cardaic cath - Anesthesia Hx Anesthesia: Yes Hx Anesthesia Reactions: No Hx Malignant Hyperthermia: No Family/Social History - Physician Review Nursing Documentation Reviewed: Yes Family/Social History: No Known Family HX Smoking Status: Former Smoker Hx Alcohol Use: No Hx Substance Use: No Allergies/Home Meds Allergies/Adverse Reactions: Allergies ranitidine [From Zantac] Allergy (Verified 06/10/17 19:30) RASH quetiapine [From Seroquel] Adverse Reaction (Verified 06/10/17 19:30) URTICARIA Home Medications: Home Meds Medication Instructions Recorded Confirmed Aspirin [Ecotrin] 81 mg PO DAILY 02/21/17 06/10/17 Gabapentin [Gralise] 300 mg PO DAILY 02/21/17 06/10/17 Nitroglycerin 0.4 mg SL PRN PRN 02/21/17 06/10/17 diaZEpam [Valium] 5 mg PO DAILY 02/21/17 06/10/17 diltiaZEM [Cardizem] 240 mg PO DAILY 02/21/17 06/10/17 Butalbital/Aspirin/Caffeine 1 each PO Q8H PRN 04/15/17 06/10/17 [Ajozqz-Kcvyavp-Ottsv 50-325-40] Cyclobenzaprine [Flexeril] 5 mg PO DAILY 04/15/17 06/10/17 Review of Systems - Physician Review All systems were reviewed & negative as marked: Yes - Review of Systems Constitutional: Fevers (subjective) Respiratory: absent: Cough Cardiovascular: absent: Chest Pain Genitourinary Male: Dysuria (mild). absent: Hematuria Musculoskeletal: Other (bilateral flank pain ) Physical Exam Vital Signs Reviewed: Yes Vital Signs Temp Pulse Resp BP Pulse Ox 06/10/17 20:02 114 H 18 155/95 H 99 06/10/17 19:26 98.3 F 134 H 20 158/107 H 97 Temperature: Afebrile Blood Pressure: Hypertensive Pulse: Tachycardic Respiratory Rate: Normal Appearance: Positive for: Well-Appearing, Non-Toxic, Comfortable Pain Distress: None Mental Status: Positive for: Alert and Oriented X 3 - Systems Exam Head: Present: Atraumatic, Normocephalic Pupils: Present: PERRL Extroacular Muscles: Present: EOMI Conjunctiva: Present: Normal Mouth: Present: Moist Mucous Membranes Neck: Present: Normal Range of Motion Respiratory/Chest: Present: Clear to Auscultation, Good Air Exchange. No: Respiratory Distress, Accessory Muscle Use Cardiovascular: Present: Regular Rate and Rhythm, Normal S1, S2. No: Murmurs Abdomen: Present: Normal Bowel Sounds. No: Tenderness, Distention, Peritoneal Signs, Rebound, Guarding, Hernias Back: Present: Normal Inspection. No: CVA Tenderness, Midline Tenderness, Paraspinal Tenderness Upper Extremity: Present: Normal Inspection. No: Cyanosis, Edema Lower Extremity: Present: Normal Inspection. No: Edema Neurological: Present: GCS=15, CN II-XII Intact, Speech Normal Skin: Present: Warm, Dry, Normal Color. No: Rashes Psychiatric: Present: Alert, Oriented x 3, Normal Insight, Normal Concentration Medical Decision Making ED Course and Treatment: 06/10/17 19:55 Impression: A 46 year old male with bilateral flank pain. Differential Diagnosis included but are not limited to: pyelonephritis vs. nephrolithiasis Plan: -- Abd & Pel CT -- Labs -- Toradol -- Urinalysis -- Reassess and disposition Progress Notes: 06/10/17 22:00 Reviewed radiology, CT Abdomen and Pelvis shows: Limitations: Motion artifact - mild. Lower thorax: Minimal atelectasis/scarring. ABDOMEN: Liver: Fatty infiltration. Gallbladder and bile ducts: No calcified stones. No ductal dilation. Pancreas: Unremarkable. No ductal dilation. Spleen: No splenomegaly. Adrenals: No mass. Kidneys and ureters: Punctate calculus within RIGHT kidney. No hydronephrosis. Stomach and bowel: No definite mural thickening. No obstruction. Appendix: No findings to suggest acute appendicitis. PELVIS: Bladder: Unremarkable. No stones. Reproductive: Mildly enlarged prostate. ABDOMEN and PELVIS: Intraperitoneal space: No significant fluid collection. No free air. Bones/joints: No acute fracture. Soft tissues: Minimal gynecomastia. Tiny umbilical hernia containing fat. Vasculature: Unremarkable. No aneurysm. Lymph nodes: No pathologically enlarged lymph nodes. IMPRESSION: 1. Nonobstructing renal calculus. 2. Incidental/non-acute findings are described above. Case discussed with Dr. Naresh Van, who is aware and agrees with plan. Accepts pt in hospitalist service. Pt will go to [facility] observation for pyelonephritis and nephrolithiasis. - Lab Interpretations Lab Results: 06/10/17 20:20 06/10/17 20:20 Lab Results 06/10/17 20:30: Urine Color Yellow, Urine Appearance Sl cloudy, Urine pH 6.0, Ur Specific [place] <= 1.005, Urine Protein Negative, Urine Glucose (UA) Negative, Urine Ketones Negative, Urine Blood Small H, Urine Nitrate Negative, Urine Bilirubin Negative, Urine Urobilinogen 0.2, Ur Leukocyte Esterase Moderate H, Urine RBC 2 - 5, Urine WBC 25 - 30, Ur Epithelial Cells 0 - 2, Urine Bacteria Few 06/10/17 20:20: WBC 14.0 H D, RBC 4.99, Hgb 15.0, Hct 42.2, MCV 84.6, MCH 30.1, MCHC 35.5, RDW 12.8, Plt Count 209, MPV 9.8 06/10/17 20:20: Sodium 137, Potassium 3.7, Chloride 101, Carbon Dioxide 26, Anion Gap 14, BUN 14, Creatinine 0.9, Est GFR ( Amer) > 60, Est GFR (Non- Af Amer) > 60, Random Glucose 97, Calcium 9.5, Total Bilirubin 0.8, AST 34, ALT 82 H, Alkaline Phosphatase 136 H, Total Protein 7.7, Albumin 4.1, Globulin 3.6, Albumin/Globulin Ratio 1.2 I have reviewed the lab results: Yes - RAD Interpretation Radiology Orders: 06/10/17 19:38 ABD & PELVIS W/O PO OR IV CONT [CT] Stat Grades 1 Thru 5 Teacher: Radiologist - Medication Orders Current Medication Orders: Ceftriaxone Sodium (Rocephin 1 Gram Ivpb) 1 gm in 100 mls @ 200 mls/hr IV ONCE STA PRN Reason: Protocol Stop: 06/10/17 22:26 Discontinued Medications Sodium Chloride (Sodium Chloride 0.9%) 1,000 mls @ 999 mls/hr IV .Q1H1M STA Stop: 06/10/17 21:29 Last Admin: 06/10/17 20:33 Dose: 999 mls/hr eMAR Start Stop Document 06/10/17 20:33 EQ (Rec: 06/10/17 20:34 EQ [facility] [id number]) Intravenous Solution Start Date 06/10/17 Start Time 20:34 Ketorolac Tromethamine (Toradol) 30 mg IVP ONCE ONE Stop: 06/10/17 19:40 Last Admin: 06/10/17 20:29 Dose: 30 mg MAR Pain Assessment Document 06/10/17 20:29 EQ (Rec: 06/10/17 20:30 EQ [facility] [id number]) Pain Reassessment Is this a pain reassessment? No Sleep Is patient sleeping during reassessment? No Presence of Pain Presence of Pain Yes IVP Administration Document 06/10/17 20:29 EQ (Rec: 06/10/17 20:30 EQ [facility] [id number]) Charges for Administration # of IVP Administrations 1 - Scribe Statement The provider has reviewed the documentation as recorded by the Jeremyibsuzie Zuñiga Provider Scribe Attestation: All medical record entries made by the Scribe were at my direction and personally dictated by me. I have reviewed the chart and agree that the record accurately reflects my personal performance of the history, physical exam, medical decision making, and the department course for this patient. I have also personally directed, reviewed, and agree with the discharge instructions and disposition. Disposition/Present on Arrival - Present on Arrival Any Indicators Present on Arrival: No History of DVT/PE: No History of Uncontrolled Diabetes: No Urinary Catheter: No History of Decub. Ulcer: No History Surgical Site Infection Following: None - Disposition Have Diagnosis and Disposition been Completed?: Yes Diagnosis: Pyelonephritis, Nephrolithiasis Disposition: HOSPITALIZED Disposition Time: 22:00 Patient Plan: Observation Condition: STABLE Referrals: Deanna Ahumada [Primary Care Provider] - Follow up with primary Forms: [email or web address] ([place])
[2017-06-10] MEDS ORDERED: Sodium Chloride 0.9% 1,000 ML IV STA (20:29)
[2017-06-10 20:35] LABS: HEMATOCRIT 42.2 % (42.0-52.0); MEAN CELL VOLUME 84.6 fl (80.0-105.0); MEAN CORPUSCULAR HEMOGLOBIN 30.1 pg (25.0-35.0); MEAN CORPUSCULAR HGB CONC 35.5 g/dl (31.0-37.0); MEAN PLATELET VOLUME 9.8 fl (7.0-11.0); RED CELL DISTRIBUTION WIDTH 12.8 % (11.5-14.5)
[2017-06-10 20:36] LABS: URINE APPEARANCE SL CLOUDY (CLEAR); URINE BILIRUBIN NEGATIVE (NEGATIVE); URINE BLOOD SMALL (NEGATIVE); URINE COLOR YELLOW (YELLOW); URINE GLUCOSE (UA) NEGATIVE (NEGATIVE); URINE KETONE NEGATIVE (NEGATIVE); URINE LEUKOCYTE ESTERASE MODERATE Leu/uL (NEGATIVE); URINE PROTEIN NEGATIVE mg/dL (<30 mg/dL); URINE UROBILINOGEN 0.2 E.U./dL (<1 E.U./dL)
[2017-06-10 20:38] LABS: URINE WBC 25 - 30 /hpf (0-6)
[2017-06-10 20:39] LABS: URINE BACTERIA FEW (NEG); URINE EPITHELIAL CELLS 0 - 2 /hpf (0-5)
[2017-06-10 20:44] LABS: ALB/GLOB RATIO 1.2 (1.1-1.8); ALKALINE PHOSPHATASE 136 U/L (38-126); ALT/SGPT 82 U/L (7-56); AST/SGOT 34 U/L (17-59); BILIRUBIN,TOTAL 0.8 mg/dL (0.2-1.3); BLOOD UREA NITROGEN 14 mg/dL (7-21); CALCIUM 9.5 mg/dL (8.4-10.5); CARBON DIOXIDE 26 mmol/L (21-33); CHLORIDE 101 mmol/L (98-107); GFR AFRICAN-AMERICAN > 60; GLUCOSE,RANDOM 97 mg/dL (70-110); POTASSIUM 3.7 mmol/L (3.6-5.0); SODIUM 137 mmol/L (132-148); TOTAL PROTEIN 7.7 g/dL (5.8-8.3)
[2017-06-10] MEDS ORDERED: cefTRIAXone 1 gm 1 GM/100 ML BAG IV STA (21:57)
--- NOTE | 2017-06-10 21:57 | CT ---
EXAM: CT Abdomen and Pelvis Without Intravenous Contrast CLINICAL HISTORY: 46 years old, male; Pain; Other: Flank; Additional info: Flank pain TECHNIQUE: Axial computed tomography images of the abdomen and pelvis without intravenous contrast. All CT scans at this facility use one or more dose reduction techniques, viz.: automated exposure control; ma/kV adjustment per patient size (including targeted exams where dose is matched to indication; i.e. head); or iterative reconstruction technique. Coronal and sagittal reformatted images were created and reviewed. COMPARISON: CT - ABD PELVIS W/O PO OR IV CONT 2017-04-11 16:42 FINDINGS: Limitations: Motion artifact - mild. Lower thorax: Minimal atelectasis/scarring. ABDOMEN: Liver: Fatty infiltration. Gallbladder and bile ducts: No calcified stones. No ductal dilation. Pancreas: Unremarkable. No ductal dilation. Spleen: No splenomegaly. Adrenals: No mass. Kidneys and ureters: Punctate calculus within RIGHT kidney. No hydronephrosis. Stomach and bowel: No definite mural thickening. No obstruction. Appendix: No findings to suggest acute appendicitis. PELVIS: Bladder: Unremarkable. No stones. Reproductive: Mildly enlarged prostate. ABDOMEN and PELVIS: Intraperitoneal space: No significant fluid collection. No free air. Bones/joints: No acute fracture. Soft tissues: Minimal gynecomastia. Tiny umbilical hernia containing fat. Vasculature: Unremarkable. No aneurysm. Lymph nodes: No pathologically enlarged lymph nodes. IMPRESSION: 1. Nonobstructing renal calculus. 2. Incidental/non-acute findings are described above.
[2017-06-10] MEDS ORDERED: Sodium Chloride 0.45% 1,000 ML IV SCH (22:45)
--- NOTE | 2017-06-10 23:18 | CP.PCM.HP ---
History of Present Illness - History of Present Illness History of Present Illness: 46 yrs old male with hx of htn , substance abuse marihuana cocain , and kidney stones came to the er for c/o rt flank pain and chills starting this evening.pt was dx ed with kidney stones last apr and was rx tylenol for pain. pt also has hx of migrain and angina.pt has apmd out side but never f/u with him. Present on Admission - Present on Admission Any Indicators Present on Admission: No Review of Systems - Review of Systems Review of Systems: as mentioned above. Past Patient History - Infectious Disease Hx of Infectious Diseases: None - Past Social History Smoking Status: Former Smoker Drugs: Cannabis, Cocaine - CARDIAC Hx Cardiac Disorders: Yes Hx Angina: Yes Hx Hypertension: Yes - PULMONARY Hx Respiratory Disorders: No - NEUROLOGICAL Hx Migraine: Yes - HEENT Hx HEENT Problems: No - RENAL Hx Kidney Stones: Yes - ENDOCRINE/METABOLIC Hx Endocrine Disorders: No - HEMATOLOGICAL/ONCOLOGICAL Hx Blood Disorders: No - INTEGUMENTARY Hx Dermatological Problems: No - MUSCULOSKELETAL/RHEUMATOLOGICAL Hx Musculoskeletal Disorders: No Hx Falls: Yes - GASTROINTESTINAL Hx Gastroesophageal Reflux: Yes - GENITOURINARY/GYNECOLOGICAL Hx Genitourinary Disorders: No - PSYCHIATRIC Hx Psychophysiologic Disorder: Yes Hx Anxiety: Yes Hx Depression: Yes Hx Substance Use: No - SURGICAL HISTORY Other/Comment: cardaic cath - ANESTHESIA Hx Anesthesia: Yes Hx Anesthesia Reactions: No Hx Malignant Hyperthermia: No Meds Allergies/Adverse Reactions: Allergies Allergy/AdvReac Type Severity Reaction Status Date / Time ranitidine [From Zantac] Allergy RASH Verified 06/10/17 19:30 quetiapine [From Seroquel] AdvReac URTICARIA Verified 06/10/17 19:30 Physical Exam - Head Exam Head Exam: NORMAL INSPECTION - Eye Exam Eye Exam: Normal appearance Pupil Exam: PERRL - ENT Exam ENT Exam: Mucous Membranes Moist - Neck Exam Neck exam: Positive for: Full Rom - Respiratory Exam Respiratory Exam: Clear to Auscultation Bilateral - Cardiovascular Exam Cardiovascular Exam: REGULAR RHYTHM, +S1, +S2 - GI/Abdominal Exam GI & Abdominal Exam: Normal Bowel Sounds - Rectal Exam Rectal Exam: Deferred - Extremities Exam Extremities exam: Positive for: full ROM - Neurological Exam Neurological exam: Alert, CN II-XII Intact, Oriented x3 - Psychiatric Exam Psychiatric exam: Normal Affect - Skin Skin Exam: Dry, Warm Results - Vital Signs Recent Vital Signs: Last Vital Signs Temp 98.3 F 06/10/17 19:26 Pulse 111 H 06/10/17 22:10 Resp 18 06/10/17 22:10 BP 140/90 06/10/17 22:10 Pulse Ox 100 06/10/17 22:10 - Labs Result Diagrams: 06/11/17 07:00 06/11/17 15:00 - Impressions Impression: rt kidney pnctate stones. acute pyelonephritis. - Imaging and Cardiology CT scan - abdomen Status: Report reviewed by me Assessment & Plan - Assessment and Plan (Free Text) Assessment: rt kidney stones . acute pylonephritis. hx of substance abuse . hx of htn . hx of migrain. Plan: ivf 1/2 ns 120 cc hr. toradol [address] delacruz consult . iv antibiotics rocephine . tylenol prn. - Date & Time Date: 06/10/17 Time: 23:15
[2017-06-11 07:38] LABS: BASO # 0.02 K/mm3 (0.0-2.0); BASO % 0.2 % (0.0-3.0); EOS # 0.1 (0.0-0.7); EOS % 0.5 % (1.5-5.0); GRAN # 10.4 (1.4-6.5); GRAN % 81.5 % (50.0-68.0); HEMATOCRIT 39.3 % (42.0-52.0); LYMPH # 1.2 (1.2-3.4); LYMPH % 9.2 % (22.0-35.0); MEAN CELL VOLUME 85.8 fl (80.0-105.0); MEAN CORPUSCULAR HEMOGLOBIN 29.7 pg (25.0-35.0); MEAN CORPUSCULAR HGB CONC 34.6 g/dl (31.0-37.0); MONO # 1.1 (0.1-0.6); MONO % 8.6 % (1.0-6.0); RED CELL DISTRIBUTION WIDTH 12.9 % (11.5-14.5); WHITE BLOOD COUNT 12.8 10^3/ul (4.5-11.0)
[2017-06-11 08:30] LABS: BLOOD UREA NITROGEN 11 mg/dL (7-21); CALCIUM 8.8 mg/dL (8.4-10.5); CARBON DIOXIDE 24 mmol/L (21-33); CHLORIDE 103 mmol/L (98-107); GFR AFRICAN-AMERICAN > 60; GLUCOSE,RANDOM 134 mg/dL (70-110); POTASSIUM 3.1 mmol/L (3.6-5.0); SODIUM 136 mmol/L (132-148)
[2017-06-11] MEDS ORDERED: Potassium Chloride 40 mEq/30 ml LIQ UD PO ONE (10:00)
[2017-06-11] MEDS ORDERED: diltiaZEM 240 mg/24 Hours CD Cap PO SCH ×2 (10:00→17:00)
[2017-06-11] MEDS ORDERED: Potassium Chloride 20 mEq/15 ml LIQ UD PO STA (10:00)
[2017-06-11] MEDS: cefTRIAXone 1 gm 1 GM/100 ML BAG IVPB SCH (10:20)
[2017-06-11] MEDS ORDERED: Magnesium Sulfate 2 GM in Sodium Chloride 0.9% 100 ML IVPB ONE (11:24)
--- NOTE | 2017-06-11 15:07 | CP.PCM.PN ---
<Eric Tompkins - Last Filed: 06/11/17 14:54> Subjective - Date & Time of Evaluation Date of Evaluation: 06/11/17 Time of Evaluation: 10:00 - Subjective Subjective: Subjective: Patient seen and examined at bedside. Resting comfortably in bed. Patient states flank pain has improved relative to baseline. Admits to headache. Denies fever, chills, chest pain, shortness of breath, abdominal pain, nausea, vomiting , diarrhea, constipation, and urinary symptoms. Physical Examination: - Head Exam Head Exam: NORMAL INSPECTION - Eye Exam Eye Exam: Normal appearance Pupil Exam: PERRL - ENT Exam ENT Exam: Mucous Membranes Moist - Neck Exam Neck exam: Positive for: Full Rom - Respiratory Exam Respiratory Exam: Clear to Auscultation Bilateral - Cardiovascular Exam Cardiovascular Exam: REGULAR RHYTHM, +S1, +S2 - GI/Abdominal Exam GI & Abdominal Exam: Normal Bowel Sounds - Rectal Exam Rectal Exam: Deferred - Extremities Exam Extremities exam: Positive for: full ROM - Neurological Exam Neurological exam: Patient is awake, alert, responds to verbal stimuli, answers questions appropriately, follows commands, and moves extremities past midline - Psychiatric Exam Psychiatric exam: Normal Affect - Skin Skin Exam: Dry, Warm Assessment and Plan: Patient is a 46 year old male with a past medical history of htn , substance abuse marihuana cocaine, and kidney stones who was admitted for evaluation and treatment of flank pain and chills. Nephrolithiasis; Flank Pain - CT of the abdomen and pelvis showed a non obstructing renal calculus - urology consulted- no acute intervention at this time, follow up outpatient - c/w ceftriaxone - c/w toradol Chest Pain - rule out ACS - ekg and cardiac isoenzymes q8- will follow - nitro prn - c/w aspirin HTN - c/w diltiazem - BPs trended, reviewed, and appreciated, will continue to monitor closely Headache - toradol prn Elevated LFTs - decreased compared to baseline - will monitor closely Hypokalemia, Hypomagnesemia - repleted - will monitor closely Prophylaxis - GI- protonix - DVT- heparin Patient seen, case discussed with, and plan approved by attending physician, Dr. Bryan. Objective - Vital Signs/Intake and Output Vital Signs (last 24 hours): Temp Pulse Resp BP Pulse Ox 98.7 F 111 H 20 139/108 H 100 06/11/17 07:30 06/11/17 07:30 06/11/17 07:30 06/11/17 07:30 06/11/17 07:30 Intake and Output: 06/11/17 06/11/17 06:59 18:59 Intake Total 960 Balance 960 - Medications Medications: Current Medications Acetaminophen (Tylenol 325mg Tab) 650 mg PO Q4H PRN PRN Reason: fever pain Aspirin (Ecotrin) 81 mg PO DAILY [facility] Last Admin: 06/11/17 10:20 Dose: 81 mg Diltiazem HCl (Cardizem Cd) 240 mg PO 1700 SAROJ Gabapentin (Neurontin) 300 mg PO DAILY [facility] Last Admin: 06/11/17 10:20 Dose: 300 mg Ceftriaxone Sodium (Rocephin 1 Gram Ivpb) 1 gm in 100 mls @ 100 mls/hr IVPB DAILY SAROJ PRN Reason: Protocol Last Admin: 06/11/17 10:20 Dose: 100 mls/hr Ketorolac Tromethamine (Toradol) 15 mg IVP Q8H PRN PRN Reason: Pain, Mild (1-3) Last Admin: 06/11/17 05:38 Dose: 15 mg Nitroglycerin (Nitrostat Sl Tab) 0.4 mg SL Q5M PRN PRN Reason: Pain, Mild (1-3) - Labs Labs: 06/11/17 07:00 06/11/17 07:00 <Nancy Bryan - Last Filed: 06/11/17 15:50> Objective - Vital Signs/Intake and Output Vital Signs (last 24 hours): Temp Pulse Resp BP Pulse Ox 98.7 F 111 H 20 139/108 H 100 06/11/17 07:30 06/11/17 07:30 06/11/17 07:30 06/11/17 07:30 06/11/17 07:30 Intake and Output: 06/11/17 06/11/17 06:59 18:59 Intake Total 960 Balance 960 - Medications Medications: Current Medications Acetaminophen (Tylenol 325mg Tab) 650 mg PO Q4H PRN PRN Reason: fever pain Last Admin: 06/11/17 14:58 Dose: 650 mg Aspirin (Ecotrin) 81 mg PO DAILY [facility] Last Admin: 06/11/17 10:20 Dose: 81 mg Diltiazem HCl (Cardizem Cd) 240 mg PO 1700 SAROJ Gabapentin (Neurontin) 300 mg PO DAILY [facility] Last Admin: 06/11/17 10:20 Dose: 300 mg Heparin Sodium (Porcine) (Heparin) 5,000 units SC Q8 SAROJ PRN Reason: Protocol Ceftriaxone Sodium (Rocephin 1 Gram Ivpb) 1 gm in 100 mls @ 100 mls/hr IVPB DAILY SAROJ PRN Reason: Protocol Last Admin: 06/11/17 10:20 Dose: 100 mls/hr Ketorolac Tromethamine (Toradol) 15 mg IVP Q8H PRN PRN Reason: Pain, Mild (1-3) Last Admin: 06/11/17 05:38 Dose: 15 mg Nitroglycerin (Nitrostat Sl Tab) 0.4 mg SL Q5M PRN PRN Reason: Pain, Mild (1-3) Pantoprazole Sodium (Protonix Inj) 40 mg IVP DAILY [facility] - Labs Labs: 06/11/17 07:00 06/11/17 07:00 Attending/Attestation - Attestation I have personally seen and examined this patient.: Yes I have fully participated in the care of the patient.: Yes I have reviewed all pertinent clinical information, including history, physical exam and plan: Yes Notes (Text): 06/11/17 15:44 46 year old male with past medical history of hypertension, substance abuse and kidney stones who presented last night with complaint of right flank pain and dysuria. CT scan showed non-obstructing punctate right kidney stone. UA was positive for LE. He was started on iv fluids, toradol and ceftriaxone. His symptoms have improved. Urology evaluation was requested who agreed with present management and requested for KUB. Will follow up on urine culture. Last night he also complained of chest pain. Cardiac enzymes and EKG are ordered. He has history of substance abuse and urine drug screen was ordered as well. He is on aspirin and cardizem. Will replete and repeat lytes (potassium/magnesium). Nancy Bryan MD Hospitalist.
[2017-06-11 15:44] LABS: TROPONIN I < 0.01 ng/mL
[2017-06-11 15:45] LABS: BLOOD UREA NITROGEN 10 mg/dL (7-21); CALCIUM 9.1 mg/dL (8.4-10.5); CARBON DIOXIDE 31 mmol/L (21-33); CHLORIDE 102 mmol/L (98-107); GFR AFRICAN-AMERICAN > 60; GLUCOSE,RANDOM 97 mg/dL (70-110); MAGNESIUM 2.4 mg/dL (1.7-2.2); POTASSIUM 4.5 mmol/L (3.6-5.0); SODIUM 138 mmol/L (132-148)
[2017-06-11] MEDS ORDERED: CAFFEINE PO PRN (16:21)
[2017-06-11] MEDS ORDERED: [UNRECOGNIZED DRUG - OTHER] PO PRN (16:21)
[2017-06-11] MEDS ORDERED: ASPIRIN PO PRN (16:21)
[2017-06-11] MEDS ORDERED: BUTALBITAL PO PRN (16:21)
--- NOTE | 2017-06-11 17:13 | RAD ---
HISTORY: nephrolithiasis COMPARISON: No prior. FINDINGS: BOWEL: Normal. No obstruction. No free air. BONES: Normal. OTHER FINDINGS: None. IMPRESSION: No visible renal or ureteral stones
[2017-06-11] MEDS: Apap-Butalbital-Caffeine 325-50-40mg Tab PO PRN (18:14)
[2017-06-11] MEDS ORDERED: Naproxen 275 mg Tab PO STA (22:12)
[2017-06-11] MEDS ORDERED: Naproxen 550 mg Tab PO STA (22:17)
[2017-06-12 00:25] VITALS: RESP 19
[2017-06-12 06:17] VITALS: BP 112/78; PULSE 82; O2SAT 97
[2017-06-12 07:23] LABS: BASO # 0.02 K/mm3 (0.0-2.0); BASO % 0.2 % (0.0-3.0); EOS # 0.3 (0.0-0.7); EOS % 3.1 % (1.5-5.0); GRAN # 6.44 (1.4-6.5); GRAN % 73.7 % (50.0-68.0); HEMATOCRIT 40.1 % (42.0-52.0); LYMPH # 1.2 (1.2-3.4); LYMPH % 13.9 % (22.0-35.0); MEAN CELL VOLUME 86.4 fl (80.0-105.0); MEAN CORPUSCULAR HEMOGLOBIN 29.7 pg (25.0-35.0); MEAN CORPUSCULAR HGB CONC 34.4 g/dl (31.0-37.0); MEAN PLATELET VOLUME 9.9 fl (7.0-11.0); MONO # 0.8 (0.1-0.6); MONO % 9.1 % (1.0-6.0); RED CELL DISTRIBUTION WIDTH 12.9 % (11.5-14.5); WHITE BLOOD COUNT 8.8 10^3/ul (4.5-11.0)
[2017-06-12 08:07] LABS: BLOOD UREA NITROGEN 11 mg/dL (7-21); CALCIUM 9.1 mg/dL (8.4-10.5); CARBON DIOXIDE 25 mmol/L (21-33); CHLORIDE 104 mmol/L (98-107); GFR AFRICAN-AMERICAN > 60; GLUCOSE,RANDOM 102 mg/dL (70-110); SODIUM 138 mmol/L (132-148)
[2017-06-12 08:12] LABS: TROPONIN I < 0.01 ng/mL
[2017-06-12 08:18] VITALS: TEMP 98
--- NOTE | 2017-06-12 08:58 | CARD ---
APPROVED REPORT EKG Measurement Heart [id number] <Conclusion> Normal sinus rhythm NSSTW changes, new since ECG 05/23/17
[2017-06-12] MEDS: cefTRIAXone 1 gm 1 GM/100 ML BAG IVPB SCH (09:33)
[2017-06-12] MEDS ORDERED: Fluticasone Nasal 50 mcg/Spray NS SCH (10:00)
--- NOTE | 2017-06-12 10:05 | CP.PCM.DIS ---
<Eric Tompkins - Last Filed: 06/12/17 10:11> Provider - Provider Date of Admission: 06/10/17 22:04 Attending physician: Nancy Bryan MD Primary care physician: Deanna Ahumada MD Time Spent in preparation of Discharge (in minutes): 45 Diagnosis - Discharge Diagnosis (1) Nephrolithiasis Status: Resolved Priority: Medium (2) Chest pain Status: Resolved Priority: Medium Hospital Course - Lab Results Lab Results: Micro Results 06/10/17 22:50 Blood Blood Culture - Preliminary NO GROWTH AFTER 24 HOURS 06/10/17 22:35 Blood Blood Culture - Preliminary NO GROWTH AFTER 24 HOURS Most Recent Lab Values WBC 8.8 10^3/ul (4.5-11.0) D 06/12/17 06:45 RBC 4.64 10^6/uL (3.5-6.1) 06/12/17 06:45 Hgb 13.8 g/dL (14.0-18.0) L 06/12/17 06:45 Hct 40.1 % (42.0-52.0) L 06/12/17 06:45 MCV 86.4 fl (80.0-105.0) 06/12/17 06:45 MCH 29.7 pg (25.0-35.0) 06/12/17 06:45 MCHC 34.4 g/dl (31.0-37.0) 06/12/17 06:45 RDW 12.9 % (11.5-14.5) 06/12/17 06:45 Plt Count 198 10^3/uL (120.0-450.0) 06/12/17 06:45 MPV 9.9 fl (7.0-11.0) 06/12/17 06:45 Gran % 73.7 % (50.0-68.0) H 06/12/17 06:45 Lymph % (Auto) 13.9 % (22.0-35.0) L 06/12/17 06:45 [place] % (Auto) 9.1 % (1.0-6.0) H 06/12/17 06:45 Eos % (Auto) 3.1 % (1.5-5.0) 06/12/17 06:45 Baso % (Auto) 0.2 % (0.0-3.0) 06/12/17 06:45 Gran # 6.44 (1.4-6.5) 06/12/17 06:45 Lymph # 1.2 (1.2-3.4) 06/12/17 06:45 [place] # 0.8 (0.1-0.6) H 06/12/17 06:45 Eos # 0.3 (0.0-0.7) 06/12/17 06:45 Baso # 0.02 K/mm3 (0.0-2.0) 06/12/17 06:45 Sodium 138 mmol/L (132-148) 06/12/17 06:45 Potassium 4.0 mmol/L (3.6-5.0) 06/12/17 06:45 Chloride 104 mmol/L (98-107) 06/12/17 06:45 Carbon Dioxide 25 mmol/L (21-33) 06/12/17 06:45 Anion Gap 12 (10-20) 06/12/17 06:45 BUN 11 mg/dL (7-21) 06/12/17 06:45 Creatinine 0.9 mg/dl (0.8-1.5) 06/12/17 06:45 Est GFR ( Amer) > 60 06/12/17 06:45 Est GFR (Non-Af Amer) > 60 06/12/17 06:45 Random Glucose 102 mg/dL (70-110) 06/12/17 06:45 Calcium 9.1 mg/dL (8.4-10.5) 06/12/17 06:45 Magnesium 2.4 mg/dL (1.7-2.2) H 06/11/17 15:00 Total Bilirubin 0.8 mg/dL (0.2-1.3) 06/10/17 20:20 AST 34 U/L (17-59) 06/10/17 20:20 ALT 82 U/L (7-56) H 06/10/17 20:20 Alkaline Phosphatase 136 U/L (38-126) H 06/10/17 20:20 Lactate Dehydrogenase 469 U/L (333-699) 06/12/17 06:45 Total Creatine Kinase 40 U/L (35-230) 06/12/17 06:45 Troponin I < 0.01 ng/mL 06/12/17 06:45 Total Protein 7.7 g/dL (5.8-8.3) 06/10/17 20:20 Albumin 4.1 g/dL (3.0-4.8) 06/10/17 20:20 Globulin 3.6 gm/dL 06/10/17 20:20 Albumin/Globulin Ratio 1.2 (1.1-1.8) 06/10/17 20:20 Urine Color Yellow (YELLOW) 06/10/17 20:30 Urine Appearance Sl cloudy (CLEAR) 06/10/17 20:30 Urine pH 6.0 (4.7-8.0) 06/10/17 20:30 Ur Specific Procious <= 1.005 (1.005-1.035) 06/10/17 20:30 Urine Protein Negative mg/dL (<30 mg/dL) 06/10/17 20:30 Urine Glucose (UA) Negative mg/dL (NEGATIVE) 06/10/17 20:30 Urine Ketones Negative mg/dL (NEGATIVE) 06/10/17 20:30 Urine Blood Small (NEGATIVE) H 06/10/17 20:30 Urine Nitrate Negative (NEGATIVE) 06/10/17 20:30 Urine Bilirubin Negative (NEGATIVE) 06/10/17 20:30 Urine Urobilinogen 0.2 E.U./dL (<1 E.U./dL) 06/10/17 20:30 Ur Leukocyte Esterase Moderate Pravin/uL (NEGATIVE) H 06/10/17 20:30 Urine RBC 2 - 5 /hpf (0-2) 06/10/17 20:30 Urine WBC 25 - 30 /hpf (0-6) 06/10/17 20:30 Ur Epithelial Cells 0 - 2 /hpf (0-5) 06/10/17 20:30 Urine Bacteria Few (NEG) 06/10/17 20:30 Urine Opiates Screen Negative (NEGATIVE) 06/11/17 16:35 Urine Methadone Screen Negative (NEGATIVE) 06/11/17 16:35 Ur Barbiturates Screen Positive (NEGATIVE) H 06/11/17 16:35 Ur Phencyclidine Scrn Negative (NEGATIVE) 06/11/17 16:35 Ur Amphetamines Screen Negative (NEGATIVE) 06/11/17 16:35 U Benzodiazepines Scrn Positive (NEGATIVE) H 06/11/17 16:35 U Oth Cocaine Metabols Negative (NEGATIVE) 06/11/17 16:35 U Cannabinoids Screen Negative (NEGATIVE) 06/11/17 16:35 - Hospital Course Hospital Course: Patient is a 46 year old male with a past medical history of htn, substance abuse marijuana, cocaine, and kidney stones who was admitted for evaluation and treatment of flank pain and chills. With the use of physical examinations, lab work, and imaging the patient was diagnosed with and treated for nephrolithasis , pyelonephritis along with the patients chronic medical conditions. During a prior visit the patient admitted to chest pain and was educated to conduct an outpatient stress test which patient did not complete. Patient was again worked up for the chest pain during this visit and ACS was ruled out. During their hospital stay the patient was seen by urology and their recommendations were both appreciated and utilized in the care for this patient. During their hospital stay the patient underwent an abdomen/pelvis CT, abdominal oblique view , pelvic oblique view, which were reviewed, appreciated, and utilized in the management of the patients clinical course. Patient was treated with antibiotics , analgesics, antihypertensives amongst other empiric/therapeutic medications. At this time the patient is medically stable for discharge. Patient understands and appreciates discharge plan. Patient instructed to follow up with primary care physicians and referrals within three to five days from discharge. Furthermore, the patient is instructed to take medications as prescribed and to return to emergency room for evaluation of intractable headache, fever, chills, dizziness, chest pain, shortness of breath, abdominal pain, nausea, vomiting, diarrhea, constipation, and urinary symptoms. This is a brief summary of the patients hospital course. Please see patient chart for full details. Discharge Exam - Head Exam Head Exam: NORMAL INSPECTION - Additional Findings Additional findings: - Head Exam Head Exam: NORMAL INSPECTION - Eye Exam Eye Exam: Normal appearance Pupil Exam: PERRL - ENT Exam ENT Exam: Mucous Membranes Moist - Neck Exam Neck exam: Positive for: Full Rom - Respiratory Exam Respiratory Exam: Clear to Auscultation Bilateral - Cardiovascular Exam Cardiovascular Exam: REGULAR RHYTHM, +S1, +S2 - GI/Abdominal Exam GI & Abdominal Exam: Normal Bowel Sounds - Rectal Exam Rectal Exam: Deferred - Extremities Exam Extremities exam: Positive for: full ROM - Neurological Exam Neurological exam: Patient is awake, alert, responds to verbal stimuli, answers questions appropriately, follows commands, and moves extremities past midline - Psychiatric Exam Psychiatric exam: Normal Affect - Skin Skin Exam: Dry, Warm Discharge Plan - Discharge Medications Prescriptions: Ciprofloxacin [Cipro] 500 mg PO Q12H 7 Days tab - Follow Up Plan Condition: STABLE Disposition: HOME/ ROUTINE Patient education suggested?: Yes Additional Instructions: Patient Instructions: Take medications as prescribed. New medication includes Ciprofloxacin 500mg PO 1 tablet q12 for 7 days Follow up with PMD and referrals within three to five days from discharge including urology and cardiology. Complete outpatient stress test. Return to the emergency room for evaluation of intractable headache, fever, chills, dizziness, chest pain, shortness of breath, abdominal pain, nausea, vomiting, diarrhea, constipation, and urinary symptoms. Referrals: Deanna Ahumada [Primary Care Provider] - Hodan Pedroza MD [Staff Provider] - <Nancy Bryan - Last Filed: 06/12/17 10:48> Provider - Provider Date of Admission: 06/10/17 22:04 Attending physician: Nancy Bryan MD Primary care physician: Deanna Ahumada MD Hospital Course - Lab Results Lab Results: Micro Results 06/10/17 22:50 Blood Blood Culture - Preliminary NO GROWTH AFTER 24 HOURS 06/10/17 22:35 Blood Blood Culture - Preliminary NO GROWTH AFTER 24 HOURS Most Recent Lab Values WBC 8.8 10^3/ul (4.5-11.0) D 06/12/17 06:45 RBC 4.64 10^6/uL (3.5-6.1) 06/12/17 06:45 Hgb 13.8 g/dL (14.0-18.0) L 06/12/17 06:45 Hct 40.1 % (42.0-52.0) L 06/12/17 06:45 MCV 86.4 fl (80.0-105.0) 06/12/17 06:45 MCH 29.7 pg (25.0-35.0) 06/12/17 06:45 MCHC 34.4 g/dl (31.0-37.0) 06/12/17 06:45 RDW 12.9 % (11.5-14.5) 06/12/17 06:45 Plt Count 198 10^3/uL (120.0-450.0) 06/12/17 06:45 MPV 9.9 fl (7.0-11.0) 06/12/17 06:45 Gran % 73.7 % (50.0-68.0) H 06/12/17 06:45 Lymph % (Auto) 13.9 % (22.0-35.0) L 06/12/17 06:45 [place] % (Auto) 9.1 % (1.0-6.0) H 06/12/17 06:45 Eos % (Auto) 3.1 % (1.5-5.0) 06/12/17 06:45 Baso % (Auto) 0.2 % (0.0-3.0) 06/12/17 06:45 Gran # 6.44 (1.4-6.5) 06/12/17 06:45 Lymph # 1.2 (1.2-3.4) 06/12/17 06:45 [place] # 0.8 (0.1-0.6) H 06/12/17 06:45 Eos # 0.3 (0.0-0.7) 06/12/17 06:45 Baso # 0.02 K/mm3 (0.0-2.0) 06/12/17 06:45 Sodium 138 mmol/L (132-148) 06/12/17 06:45 Potassium 4.0 mmol/L (3.6-5.0) 06/12/17 06:45 Chloride 104 mmol/L (98-107) 06/12/17 06:45 Carbon Dioxide 25 mmol/L (21-33) 06/12/17 06:45 Anion Gap 12 (10-20) 06/12/17 06:45 BUN 11 mg/dL (7-21) 06/12/17 06:45 Creatinine 0.9 mg/dl (0.8-1.5) 06/12/17 06:45 Est GFR ( Amer) > 60 06/12/17 06:45 Est GFR (Non-Af Amer) > 60 06/12/17 06:45 Random Glucose 102 mg/dL (70-110) 06/12/17 06:45 Calcium 9.1 mg/dL (8.4-10.5) 06/12/17 06:45 Magnesium 2.4 mg/dL (1.7-2.2) H 06/11/17 15:00 Total Bilirubin 0.8 mg/dL (0.2-1.3) 06/10/17 20:20 AST 34 U/L (17-59) 06/10/17 20:20 ALT 82 U/L (7-56) H 06/10/17 20:20 Alkaline Phosphatase 136 U/L (38-126) H 06/10/17 20:20 Lactate Dehydrogenase 469 U/L (333-699) 06/12/17 06:45 Total Creatine Kinase 40 U/L (35-230) 06/12/17 06:45 Troponin I < 0.01 ng/mL 06/12/17 06:45 Total Protein 7.7 g/dL (5.8-8.3) 06/10/17 20:20 Albumin 4.1 g/dL (3.0-4.8) 06/10/17 20:20 Globulin 3.6 gm/dL 06/10/17 20:20 Albumin/Globulin Ratio 1.2 (1.1-1.8) 06/10/17 20:20 Urine Color Yellow (YELLOW) 06/10/17 20:30 Urine Appearance Sl cloudy (CLEAR) 06/10/17 20:30 Urine pH 6.0 (4.7-8.0) 06/10/17 20:30 Ur Specific [place] <= 1.005 (1.005-1.035) 06/10/17 20:30 Urine Protein Negative mg/dL (<30 mg/dL) 06/10/17 20:30 Urine Glucose (UA) Negative mg/dL (NEGATIVE) 06/10/17 20:30 Urine Ketones Negative mg/dL (NEGATIVE) 06/10/17 20:30 Urine Blood Small (NEGATIVE) H 06/10/17 20:30 Urine Nitrate Negative (NEGATIVE) 06/10/17 20:30 Urine Bilirubin Negative (NEGATIVE) 06/10/17 20:30 Urine Urobilinogen 0.2 E.U./dL (<1 E.U./dL) 06/10/17 20:30 Ur Leukocyte Esterase Moderate Pravin/uL (NEGATIVE) H 06/10/17 20:30 Urine RBC 2 - 5 /hpf (0-2) 06/10/17 20:30 Urine WBC 25 - 30 /hpf (0-6) 06/10/17 20:30 Ur Epithelial Cells 0 - 2 /hpf (0-5) 06/10/17 20:30 Urine Bacteria Few (NEG) 06/10/17 20:30 Urine Opiates Screen Negative (NEGATIVE) 06/11/17 16:35 Urine Methadone Screen Negative (NEGATIVE) 06/11/17 16:35 Ur Barbiturates Screen Positive (NEGATIVE) H 06/11/17 16:35 Ur Phencyclidine Scrn Negative (NEGATIVE) 06/11/17 16:35 Ur Amphetamines Screen Negative (NEGATIVE) 06/11/17 16:35 U Benzodiazepines Scrn Positive (NEGATIVE) H 06/11/17 16:35 U Oth Cocaine Metabols Negative (NEGATIVE) 06/11/17 16:35 U Cannabinoids Screen Negative (NEGATIVE) 06/11/17 16:35 Attending/Attestation - Attestation I have personally seen and examined this patient.: Yes I have fully participated in the care of the patient.: Yes I have reviewed all pertinent clinical information, including history, physical exam and plan: Yes Notes (Text): 06/12/17 10:43 46 year old male with past medical history of hypertension, substance abuse and kidney stones who presented with complaint of right flank pain and dysuria. He was found to have a non-obstructing punctate right kidney stone on CT scan and UTI based on UA. He was started on iv fluids, toradol and ceftriaxone with improvement of symptoms. Case was discussed with Dr. Kevin Pedroza who recommended antibiotics for UTI and outpatient urology follow up. He also complained of intermittent chest pain. Serial cardiac enzymes were negative and EKG did not show any acute changes. He was advised to follow up with cardiology for outpatient stress test, which he was advised on his last recent admission but failed to comply. He has history of substance abuse and was counselled. He initially had leukocytotis and hypokalemia which resolved. Overall his symptoms have improved. He is discharged home to follow up with his pmd. Follow up with urology. Follow up with cardiology for outpatient stress test. Counselled on risks of continued substance abuse. Nancy Bryan MD Hospitalist.
[2017-06-12] MEDS: Apap-Butalbital-Caffeine 325-50-40mg Tab PO PRN (10:51)
== END 2017-06-12 14:47 | disposition home or self-care (01) ==
LOC: ED 18:59 → ERH 22:04 → 5RNO 23:31
PROVIDERS: ADMIT Internal Medicine; ATTEND Internal Medicine
DX: N10 Acute pyelonephritis (principal); E83.42 Hypomagnesemia; E87.6 Hypokalemia; I10 Essential (primary) hypertension; K21.9 Gastro-esophageal reflux disease without esophagitis; N20.0 Calculus of kidney; Z79.82 Long term (current) use of aspirin; Z87.442 Personal history of urinary calculi; Z87.891 Personal history of nicotine dependence; R40.2412 Glasgow coma scale score 13-15, at arrival to emergency department; F14.10 Cocaine abuse, uncomplicated; F12.10 Cannabis abuse, uncomplicated; G43.909 Migraine, unspecified, not intractable, without status migrainosus; F41.9 Anxiety disorder, unspecified; F32.89 Other specified depressive episodes; Z88.8 Allergy status to other drugs, medicaments and biological substances; B96.20 Unspecified Escherichia coli [E. coli] as the cause of diseases classified elsewhere; B95.2 Enterococcus as the cause of diseases classified elsewhere
CPT/HCPCS: 36415; 74022; 74176; 80048; 80053; 80324; 80345; 80346; 80349; 80353; 80358; 80361; 81001; 82550; 83615; 83735; 83992; 84484; 85025; 85027; 87040; 87086; 93005; 96374; 99284; C9113; G0378; J0696; J1885; J3475; J3480; J7030; J7040

== ENCOUNTER 2017-07-17 14:01 | Emergency (ER) | payer OTHER ==
[2017-07-17 14:01] VITALS: BMI 35.1
--- NOTE | 2017-07-17 14:30 | ED PDOC ---
Arrival/HPI - General Chief Complaint: Weakness/Neurological Deficit Time Seen by Provider: 07/17/17 14:08 Historian: Patient - History of Present Illness Narrative History of Present Illness (Text): 07/17/17 14:26 46yo male biba complaining "sleepiness and tired". states he usually takes flexeril for muscle spasm. States he took 2tabs of Flexeril earlier this morning , instead of one tab and has been tired and sleepy s/p. He denies any focal pain , nausea, vomiting, abdominal pain, chest pain, headache, SI/Hi, any other complaint. Past Medical History - Provider Review Nursing Documentation Reviewed: Yes - Past History Past History: Non-Contributing - Infectious Disease Hx of Infectious Diseases: None - Past Medical History Past Medical History: Non-Contributing - Cardiac Hx Cardiac Disorders: Yes Hx Angina: Yes Hx Hypertension: Yes - Pulmonary Hx Respiratory Disorders: No - Neurological Hx Migraine: Yes - HEENT Hx HEENT Disorder: No - Renal Hx Kidney Stones: Yes - Endocrine/Metabolic Hx Endocrine Disorders: No - Hematological/Oncological Hx Blood Disorders: No - Integumentary Hx Dermatological Disorder: No - Musculoskeletal/Rheumatological Hx Musculoskeletal Disorders: No Hx Falls: Yes - Gastrointestinal Hx Gastroesophageal Reflux: Yes - Genitourinary/Gynecological Hx Genitourinary Disorders: No - Psychiatric Hx Psychophysiologic Disorder: Yes Hx Anxiety: Yes Hx Depression: Yes Hx Substance Use: No - Surgical History Other/Comment: cardaic cath - Anesthesia Hx Anesthesia: Yes Hx Anesthesia Reactions: No Hx Malignant Hyperthermia: No Family/Social History - Physician Review Nursing Documentation Reviewed: Yes Family/Social History: Unknown Family HX Smoking Status: Former Smoker Hx Alcohol Use: No Hx Substance Use: No Allergies/Home Meds Allergies/Adverse Reactions: Allergies ranitidine [From Zantac] Allergy (Verified 07/17/17 14:15) RASH quetiapine [From Seroquel] Adverse Reaction (Verified 07/17/17 14:15) URTICARIA Home Medications: Home Meds Medication Instructions Recorded Confirmed Aspirin [Ecotrin] 81 mg PO DAILY 02/21/17 07/17/17 Gabapentin [Gralise] 300 mg PO DAILY 02/21/17 07/17/17 Nitroglycerin 0.4 mg SL PRN PRN 02/21/17 07/17/17 diaZEpam [Valium] 5 mg PO DAILY 02/21/17 07/17/17 diltiaZEM [Cardizem] 120 mg PO DAILY 02/21/17 07/17/17 Butalbital/Aspirin/Caffeine 1 each PO Q8H PRN 04/15/17 07/17/17 [[id number] 50-325-40] Cyclobenzaprine [Flexeril] 5 mg PO DAILY 04/15/17 07/17/17 Amoxicillin [Amoxil 500 mg Cap] 500 mg PO TID 07/17/17 07/17/17 Diltiazem HCl [Cartia Xt] 1 tab PO DAILY 07/17/17 07/17/17 Meclizine [Meclizine*] 1 tab PO Q6 PRN 07/17/17 07/17/17 Nitroglycerin [Nitrotab] 0.4 mg SL PRN PRN 07/17/17 07/17/17 Propranolol [Inderal LA] 80 mg PO DAILY 07/17/17 07/17/17 Review of Systems - Physician Review All systems were reviewed & negative as marked: Yes - Review of Systems Constitutional: Fatigue Eyes: Normal ENT: Normal Respiratory: Normal Cardiovascular: Normal Gastrointestinal: Normal Genitourinary Male: Normal Musculoskeletal: Normal Skin: Normal Neurological: Normal Endocrine: Normal Hemo/Lymphatic: Normal Psychiatric: Normal Physical Exam Vital Signs Reviewed: Yes Temperature: Afebrile Blood Pressure: Normal Pulse: Regular Respiratory Rate: Normal Appearance: Positive for: Well-Appearing, Non-Toxic, Comfortable Pain Distress: None Mental Status: Positive for: Alert and Oriented X 3 - Systems Exam Head: Present: Atraumatic, Normocephalic Pupils: Present: PERRL Extroacular Muscles: Present: EOMI Conjunctiva: Present: Normal Mouth: Present: Moist Mucous Membranes Neck: Present: Normal Range of Motion Respiratory/Chest: Present: Clear to Auscultation, Good Air Exchange. No: Respiratory Distress, Accessory Muscle Use Cardiovascular: Present: Regular Rate and Rhythm, Normal S1, S2. No: Murmurs Abdomen: Present: Normal Bowel Sounds. No: Tenderness, Distention, Peritoneal Signs Back: Present: Normal Inspection Upper Extremity: Present: Normal Inspection. No: Cyanosis, Edema Lower Extremity: Present: Normal Inspection. No: Edema Neurological: Present: GCS=15, CN II-XII Intact, Speech Normal Skin: Present: Warm, Dry, Normal Color. No: Rashes Psychiatric: Present: Alert, Oriented x 3, Normal Insight, Normal Concentration Medical Decision Making ED Course and Treatment: 07/17/17 14:29 PT was AAO x3. Noted to be ambulatory with steady gait. He was neurologically intact. His symptoms is most likely secondary to the extra Flexeril cap he took. He was advised to take his medication only according to direction. He is stable to be DC home. Referred to his PMD. Disposition/Present on Arrival - Present on Arrival Any Indicators Present on Arrival: No History of DVT/PE: No History of Uncontrolled Diabetes: No Urinary Catheter: No History of Decub. Ulcer: No History Surgical Site Infection Following: None - Disposition Have Diagnosis and Disposition been Completed?: Yes Diagnosis: Tired Disposition: HOME/ ROUTINE Disposition Time: 14:30 Patient Plan: Discharge Condition: STABLE Discharge Instructions (ExitCare): Fatigue (ED) Additional Instructions: Take medication only as directed Follow up with your doctor Return to ED for any new or worsening symptoms Referrals: [facility] at [facility] [place] [Outside] - Follow up with primary
[2017-07-17 14:47] VITALS: BP 150/92; PULSE 79; RESP 14; TEMP 97.7; O2SAT 99
== END 2017-07-17 15:30 | disposition home or self-care (01) ==
LOC: ED 14:01
DX: R53.83 Other fatigue (principal)

== ENCOUNTER 2017-07-20 10:26 | Emergency (ER) | payer OTHER ==
[2017-07-20 10:26] VITALS: BMI 35.1
[2017-07-20 11:53] LABS: BASO # 0.03 K/mm3 (0.0-2.0); BASO % 0.5 % (0.0-3.0); EOS # 0.1 (0.0-0.7); EOS % 2.1 % (1.5-5.0); GRAN # 4.35 (1.4-6.5); GRAN % 71.2 % (50.0-68.0); HEMOGLOBIN 15.9 g/dL (14.0-18.0); LYMPH # 1.2 (1.2-3.4); LYMPH % 20.1 % (22.0-35.0); MEAN CELL VOLUME 86.2 fl (80.0-105.0); MEAN CORPUSCULAR HEMOGLOBIN 30.4 pg (25.0-35.0); MEAN CORPUSCULAR HGB CONC 35.3 g/dl (31.0-37.0); MEAN PLATELET VOLUME 10.2 fl (7.0-11.0); MONO # 0.4 (0.1-0.6); MONO % 6.1 % (1.0-6.0); RBC 5.23 10^6/uL (3.5-6.1); RED CELL DISTRIBUTION WIDTH 12.6 % (11.5-14.5); WHITE BLOOD COUNT 6.1 10^3/ul (4.5-11.0)
[2017-07-20 11:58] VITALS: RESP 18
[2017-07-20 12:13] LABS: ALB/GLOB RATIO 1.2 (1.1-1.8); ALBUMIN 4.4 g/dL (3.0-4.8); ALT/SGPT 139 U/L (7-56); AST/SGOT 61 U/L (17-59); BLOOD UREA NITROGEN 14 mg/dL (7-21); CALCIUM 9.4 mg/dL (8.4-10.5); GFR AFRICAN-AMERICAN > 60; GFR NON-AFRICAN AMERICAN > 60; MAGNESIUM 1.9 mg/dL (1.7-2.2)
[2017-07-20 12:23] LABS: TROPONIN I < 0.01 ng/mL
--- NOTE | 2017-07-20 12:32 | RAD ---
HISTORY: chest pain COMPARISON: Portable chest 05/23/2017 FINDINGS: LUNGS: No active pulmonary disease. PLEURA: No significant pleural effusion identified, no pneumothorax apparent. CARDIOVASCULAR: Normal. OSSEOUS STRUCTURES: No significant abnormalities. VISUALIZED UPPER ABDOMEN: Normal. OTHER FINDINGS: None. IMPRESSION: No interval acute cardiopulmonary disease appreciated.
[2017-07-20 12:34] LABS: URINE BILIRUBIN NEGATIVE (NEGATIVE); URINE BLOOD TRACE-LYSED (NEGATIVE); URINE GLUCOSE (UA) NEGATIVE (NEGATIVE); URINE LEUKOCYTE ESTERASE NEGATIVE Leu/uL (NEGATIVE); URINE NITRATE NEGATIVE (NEGATIVE); URINE PROTEIN NEGATIVE mg/dL (<30 mg/dL); URINE UROBILINOGEN 0.2 E.U./dL (<1 E.U./dL)
[2017-07-20 12:36] LABS: URINE APPEARANCE CLEAR (CLEAR); URINE COLOR YELLOW (YELLOW)
[2017-07-20 12:42] LABS: URINE BACTERIA TRACE (NEG); URINE EPITHELIAL CELLS 0 - 2 /hpf (0-5); URINE RBC 0 - 2 /hpf (0-2); URINE WBC 0 - 2 /hpf (0-6)
[2017-07-20 13:15] VITALS: BP 136/80; PULSE 79; TEMP 98.5; O2SAT 100
--- NOTE | 2017-07-20 14:11 | ED PDOC ---
Arrival/HPI - General Chief Complaint: Chest Pain Time Seen by Provider: 07/20/17 10:30 Historian: Patient - History of Present Illness Narrative History of Present Illness (Text): 07/20/17 10:30 Nicolas Loco Jr is a 46 year old male who presents to the emergency department complaining of persistent chest pain for several months. Patient states that she had a cardiac workup done in the past which was negative. Here in the emergency department, patient is asymptomatic. No other complaints at this time. Symptom Onset: Gradual Symptom Course: Unchanged Activities at Onset: Light Context: Home Past Medical History - Provider Review Nursing Documentation Reviewed: Yes - Past History Past History: Non-Contributing - Infectious Disease Hx of Infectious Diseases: None - Past Medical History Past Medical History: Non-Contributing - Cardiac Hx Cardiac Disorders: Yes Hx Angina: Yes Hx Atrial Fibrillation: Yes Hx Hypertension: Yes - Pulmonary Hx Respiratory Disorders: No - Neurological Hx Migraine: Yes - HEENT Hx HEENT Disorder: No - Renal Hx Kidney Stones: Yes - Endocrine/Metabolic Hx Endocrine Disorders: No - Hematological/Oncological Hx Blood Disorders: No - Integumentary Hx Dermatological Disorder: No - Musculoskeletal/Rheumatological Hx Musculoskeletal Disorders: No Hx Falls: Yes - Gastrointestinal Hx Gastroesophageal Reflux: Yes - Genitourinary/Gynecological Hx Genitourinary Disorders: No - Psychiatric Hx Psychophysiologic Disorder: Yes Hx Anxiety: Yes Hx Depression: Yes Hx Substance Use: No - Surgical History Other/Comment: cardaic cath - Anesthesia Hx Anesthesia: Yes Hx Anesthesia Reactions: No Hx Malignant Hyperthermia: No Family/Social History - Physician Review Nursing Documentation Reviewed: Yes Family/Social History: No Known Family HX Smoking Status: Former Smoker Hx Alcohol Use: No Hx Substance Use: No Allergies/Home Meds Allergies/Adverse Reactions: Allergies ranitidine [From Zantac] Allergy (Verified 07/20/17 10:39) RASH quetiapine [From Seroquel] Adverse Reaction (Verified 07/20/17 10:39) URTICARIA Home Medications: Home Meds Medication Instructions Recorded Confirmed Aspirin [Ecotrin] 81 mg PO DAILY 02/21/17 07/20/17 Gabapentin [Gralise] 300 mg PO DAILY 02/21/17 07/20/17 Nitroglycerin 0.4 mg SL PRN PRN 02/21/17 07/20/17 diaZEpam [Valium] 5 mg PO DAILY 02/21/17 07/20/17 diltiaZEM [Cardizem] 120 mg PO DAILY 02/21/17 07/20/17 Butalbital/Aspirin/Caffeine 1 each PO Q8H PRN 04/15/17 07/20/17 [Spjkjp-[id number]-Duyxe 50-325-40] Cyclobenzaprine [Flexeril] 5 mg PO DAILY 04/15/17 07/20/17 Amoxicillin [Amoxil 500 mg Cap] 500 mg PO TID 07/17/17 07/20/17 Diltiazem HCl [Cartia Xt] 1 tab PO DAILY 07/17/17 07/20/17 Meclizine [Meclizine*] 1 tab PO Q6 PRN 07/17/17 07/20/17 Nitroglycerin [Nitrotab] 0.4 mg SL PRN PRN 07/17/17 07/20/17 Propranolol [Inderal LA] 80 mg PO DAILY 07/17/17 07/20/17 Review of Systems - Physician Review All systems were reviewed & negative as marked: Yes - Review of Systems Constitutional: absent: Fevers, Night Sweats Eyes: absent: Vision Changes ENT: absent: Hearing Changes Respiratory: absent: SOB, Cough Cardiovascular: Chest Pain Gastrointestinal: absent: Abdominal Pain Genitourinary Male: absent: Dysuria, Frequency Musculoskeletal: absent: Arthralgias, Back Pain Skin: absent: Rash, Pruritis Neurological: absent: Headache, Dizziness Endocrine: absent: Diaphoresis Hemo/Lymphatic: absent: Adenopathy Psychiatric: absent: Anxiety, Depression Physical Exam Vital Signs Reviewed: Yes Vital Signs Temp Pulse Resp BP Pulse Ox 07/20/17 13:13 98.5 F 79 18 136/80 100 07/20/17 11:57 80 18 136/87 98 Blood Pressure: Normal Pulse: Regular Respiratory Rate: Normal Appearance: Positive for: Well-Appearing, Non-Toxic, Comfortable Pain Distress: None Mental Status: Positive for: Alert and Oriented X 3 - Systems Exam Head: Present: Atraumatic, Normocephalic Pupils: Present: PERRL Extroacular Muscles: Present: EOMI Conjunctiva: Present: Normal Mouth: Present: Moist Mucous Membranes Neck: Present: Normal Range of Motion Respiratory/Chest: Present: Clear to Auscultation, Good Air Exchange. No: Respiratory Distress, Accessory Muscle Use Cardiovascular: Present: Regular Rate and Rhythm, Normal S1, S2. No: Murmurs Abdomen: Present: Normal Bowel Sounds. No: Tenderness, Distention, Peritoneal Signs Back: Present: Normal Inspection Upper Extremity: Present: Normal Inspection. No: Cyanosis, Edema Lower Extremity: Present: Normal Inspection. No: Edema Neurological: Present: GCS=15, CN II-XII Intact, Speech Normal Skin: Present: Warm, Dry, Normal Color. No: Rashes Psychiatric: Present: Alert, Oriented x 3, Normal Insight, Normal Concentration Medical Decision Making ED Course and Treatment: 07/20/17 14:11 Impression: 46 year old male complaining of persistent chest pain for several months. Plan: -- EKG -- Tylenol -- Reassess and disposition Prior Visits: Notes and results from previous visits were reviewed. Patient was last seen in the emergency department on 07/17/17 for sleepiness and tiredness. Patient was discharged home. Progress Notes: EKG: Ordered, reviewed, and independently interpreted the EKG. Rate : 77 BPM Rhythm : NSR Interpretation : No ST-segment elevations or depressions, no T-wave inversions, normal intervals. Comparison : No previous EKG for comparison. - Lab Interpretations Lab Results: 07/20/17 11:38 07/20/17 11:38 Lab Results 07/20/17 12:15: Urine Color Yellow, Urine Appearance Clear, Urine pH 7.0, Ur Specific [place] 1.010, Urine Protein Negative, Urine Glucose (UA) Negative, Urine Ketones Negative, Urine Blood Trace-lysed H, Urine Nitrate Negative, Urine Bilirubin Negative, Urine Urobilinogen 0.2, Ur Leukocyte Esterase Negative , Urine RBC 0 - 2, Urine WBC 0 - 2, Ur Epithelial Cells 0 - 2, Urine Bacteria Trace 07/20/17 11:38: Sodium 139, Potassium 3.8, Chloride 101, Carbon Dioxide 24, Anion Gap 17, BUN 14, Creatinine 0.8, Est GFR ( Amer) > 60, Est GFR (Non- Af Amer) > 60, Random Glucose 99, Calcium 9.4, Magnesium 1.9, Total Bilirubin 0.5, AST 61 H D, ALT 139 H, Alkaline Phosphatase 140 H, Lactate Dehydrogenase 495, Total Creatine Kinase 97, Troponin I < 0.01, Total Protein 8.0, Albumin 4.4 , Globulin 3.6, Albumin/Globulin Ratio 1.2 07/20/17 11:38: WBC 6.1 D, RBC 5.23, Hgb 15.9 D, Hct 45.1, MCV 86.2, MCH 30.4 , MCHC 35.3, RDW 12.6, Plt Count 231, MPV 10.2, Gran % 71.2 H, Lymph % (Auto) 20.1 L, [place] % (Auto) 6.1 H, Eos % (Auto) 2.1, Baso % (Auto) 0.5, Gran # 4.35, Lymph # 1.2, [place] # 0.4, Eos # 0.1, Baso # 0.03 I have reviewed the lab results: Yes - RAD Interpretation Radiology Orders: 07/20/17 10:47 CHEST PORTABLE [RAD] Stat - Medication Orders Current Medication Orders: Discontinued Medications Acetaminophen (Tylenol 325mg Tab) 975 mg PO STAT STA Stop: 07/20/17 12:25 Last Admin: 07/20/17 12:30 Dose: Not Given Non-Admin Reason: Patient Refused - Scribe Statement The provider has reviewed the documentation as recorded by the Jeremyibsuzie Meza Provider Scribe Attestation: All medical record entries made by the Jeremyibe were at my direction and personally dictated by me. I have reviewed the chart and agree that the record accurately reflects my personal performance of the history, physical exam, medical decision making, and the department course for this patient. I have also personally directed, reviewed, and agree with the discharge instructions and disposition. Disposition/Present on Arrival - Present on Arrival Any Indicators Present on Arrival: No History of DVT/PE: No History of Uncontrolled Diabetes: No Urinary Catheter: No History of Decub. Ulcer: No History Surgical Site Infection Following: None - Disposition Have Diagnosis and Disposition been Completed?: Yes Diagnosis: Non-cardiac chest pain Disposition: HOME/ ROUTINE Disposition Time: 12:20 Condition: GOOD Discharge Instructions (ExitCare): Chest Pain (ED) Additional Instructions: Thank you for letting us take care of you today. The emergency medical care you received today was directed at your acute symptoms. If you were prescribed any medication, please fill it and take as directed. It may take several days for your symptoms to resolve. Return to the Emergency Department if your symptoms worsen, do not improve, or if you have any other problems. Please contact your doctor or call one of the physicians/clinics you have been referred to that are listed on the Patient Visit Information form that is included in your discharge packet. Bring any paperwork you were given at discharge with you along with any medications you are taking to your follow up visit. Our treatment cannot replace ongoing medical care by a primary care provider (PCP) outside of the emergency department. Thank you for allowing the [facility] team to be part of your care today. Follow up with your primary doctor in 2-3 days for re-evaluation and further management. Referrals: Deanna Ahumada [Primary Care Provider] - Follow up with primary Forms: [email or web address] (Malay)
--- NOTE | 2017-07-21 14:40 | CARD ---
APPROVED REPORT EKG Measurement Heart [id number] <Conclusion> Normal sinus rhythm Normal ECG
== END 2017-07-20 13:15 | disposition home or self-care (01) ==
LOC: ED 10:26
DX: R07.9 Chest pain, unspecified (principal); I10 Essential (primary) hypertension; I48.91 Unspecified atrial fibrillation; K21.9 Gastro-esophageal reflux disease without esophagitis; Z87.891 Personal history of nicotine dependence

== ENCOUNTER 2017-08-08 17:44 | Emergency (ER) | payer OTHER ==
[2017-08-08 17:44] VITALS: BMI 35.1
--- NOTE | 2017-08-08 19:01 | ED PDOC ---
Arrival/HPI - General Chief Complaint: Chest Pain Time Seen by Provider: 08/08/17 18:27 Historian: Patient - History of Present Illness Narrative History of Present Illness (Text): 08/08/17 18:30 Nicolas Loco Jr is a 46 year old male who presents to the emergency department complaining of a 3 minute long episode of chest heaviness around 16:00 this afternoon. Patient notes that he has had similar episodes multiple times previously. Patient reports that he got a normal cardiac catheterization at [facility] [place] on 06/2015. Patient notes that he quit smoking and drinking then. Patient denies any diaphoresis, dizziness, shortness of breath, nausea, vomiting, or any other complaints at this time. Time/Duration: 1-3 hours Symptom Onset: Gradual Symptom Course: Unchanged Severity Level: Mild Activities at Onset: Light Context: Home Associated Symptoms (Text): 08/08/17 20:17 Approximately 3 minute episode of chest heaviness this afternoon and completely resolved. No dyspnea. No diaphoresis. No nausea or vomiting. No dizziness or lightheadedness. Patient reports a normal cardiac catheterization June 2015 at [facility]. Patient reports multiple similar episodes. He is comfortable and pain-free. He did take his aspirin. Past Medical History - Provider Review Nursing Documentation Reviewed: Yes - Past History Past History: Non-Contributing - Infectious Disease Hx of Infectious Diseases: None - Past Medical History Past Medical History: Non-Contributing - Cardiac Hx Cardiac Disorders: Yes Hx Angina: Yes Hx Atrial Fibrillation: Yes Hx Hypertension: Yes - Pulmonary Hx Respiratory Disorders: No - Neurological Hx Migraine: Yes - HEENT Hx HEENT Disorder: No - Renal Hx Kidney Stones: Yes - Endocrine/Metabolic Hx Endocrine Disorders: No - Hematological/Oncological Hx Blood Disorders: No - Integumentary Hx Dermatological Disorder: No - Musculoskeletal/Rheumatological Hx Musculoskeletal Disorders: No Hx Falls: Yes - Gastrointestinal Hx Gastroesophageal Reflux: Yes - Genitourinary/Gynecological Hx Genitourinary Disorders: No - Psychiatric Hx Psychophysiologic Disorder: Yes Hx Anxiety: Yes Hx Depression: Yes Hx Substance Use: No - Surgical History Hx Cardiac Catheterization: Yes Other/Comment: cardaic cath - Anesthesia Hx Anesthesia: Yes Hx Anesthesia Reactions: No Hx Malignant Hyperthermia: No Family/Social History - Physician Review Nursing Documentation Reviewed: Yes Family/Social History: No Known Family HX Smoking Status: Former Smoker Hx Alcohol Use: No Hx Substance Use: No Allergies/Home Meds Allergies/Adverse Reactions: Allergies ranitidine [From Zantac] Allergy (Verified 08/08/17 18:44) RASH quetiapine [From Seroquel] Adverse Reaction (Verified 08/08/17 18:44) URTICARIA Home Medications: Home Meds Medication Instructions Recorded Confirmed Aspirin [Ecotrin] 81 mg PO DAILY 02/21/17 07/20/17 Gabapentin [Gralise] 300 mg PO DAILY 02/21/17 07/20/17 Nitroglycerin 0.4 mg SL PRN PRN 02/21/17 07/20/17 diaZEpam [Valium] 5 mg PO DAILY 02/21/17 07/20/17 diltiaZEM [Cardizem] 120 mg PO DAILY 02/21/17 07/20/17 Butalbital/Aspirin/Caffeine 1 each PO Q8H PRN 04/15/17 07/20/17 [Kvveui-Imnfabo-Gbsfv 50-325-40] Cyclobenzaprine [Flexeril] 5 mg PO DAILY 04/15/17 07/20/17 Amoxicillin [Amoxil 500 mg Cap] 500 mg PO TID 07/17/17 07/20/17 Diltiazem HCl [Cartia Xt] 1 tab PO DAILY 07/17/17 07/20/17 Meclizine [Meclizine*] 1 tab PO Q6 PRN 07/17/17 07/20/17 Nitroglycerin [Nitrotab] 0.4 mg SL PRN PRN 07/17/17 07/20/17 Propranolol [Inderal LA] 80 mg PO DAILY 07/17/17 07/20/17 Review of Systems - Physician Review All systems were reviewed & negative as marked: Yes - Review of Systems Constitutional: absent: Fevers, Night Sweats Eyes: absent: Vision Changes ENT: absent: Hearing Changes Respiratory: absent: SOB, Cough Cardiovascular: Chest Pain (Chest heaviness) Gastrointestinal: absent: Abdominal Pain, Nausea, Vomiting Genitourinary Male: absent: Dysuria, Frequency Musculoskeletal: absent: Arthralgias Skin: absent: Rash, Pruritis Neurological: absent: Headache, Dizziness, Focal Weakness Endocrine: absent: Diaphoresis Hemo/Lymphatic: absent: Adenopathy Psychiatric: absent: Anxiety, Depression Physical Exam Vital Signs Reviewed: Yes Vital Signs Pulse Resp BP Pulse Ox 08/08/17 19:50 73 18 152/94 H 97 Temperature: Afebrile Blood Pressure: Hypertensive Pulse: Regular Respiratory Rate: Normal Appearance: Positive for: Well-Appearing, Non-Toxic, Comfortable Pain Distress: None Mental Status: Positive for: Alert and Oriented X 3 - Systems Exam Head: Present: Atraumatic, Normocephalic Pupils: Present: PERRL Extroacular Muscles: Present: EOMI Conjunctiva: Present: Normal Mouth: Present: Moist Mucous Membranes Pharnyx: No: ERYTHEMA, EXUDATE, TONSILS ENLARGED Neck: Present: Normal Range of Motion Respiratory/Chest: Present: Clear to Auscultation, Good Air Exchange. No: Respiratory Distress, Accessory Muscle Use Cardiovascular: Present: Regular Rate and Rhythm, Normal S1, S2. No: Murmurs Abdomen: Present: Normal Bowel Sounds. No: Tenderness, Distention, Peritoneal Signs Back: Present: Normal Inspection Upper Extremity: Present: Normal Inspection. No: Cyanosis, Edema Lower Extremity: Present: Normal Inspection. No: Edema Neurological: Present: GCS=15, CN II-XII Intact, Speech Normal, Motor Func Grossly Intact Skin: Present: Warm, Dry, Normal Color. No: Rashes Psychiatric: Present: Alert, Oriented x 3, Normal Insight, Normal Concentration Medical Decision Making ED Course and Treatment: 08/08/17 19:02 Impression: 46 year old male who presents to the emergency department complaining of a 3 minute long episode of chest heaviness around 16:00 this afternoon. Plan: -- EKG -- Chest x-ray -- Labs -- Reassess and disposition Prior Visits: Notes and results from previous visits were reviewed. Patient was last seen in the emergency department on 07/20/17 for persistent chest pain for several months. Patient was discharged home. Progress Notes: 08/08/17 20:19 EKG shows normal sinus rhythm rate approximately [address] or T-wave changes - Lab Interpretations Lab Results: 08/08/17 19:15 08/08/17 19:15 Lab Results 08/08/17 19:15: Sodium 139, Potassium 3.9, Chloride 103, Carbon Dioxide 28, Anion Gap 12, BUN 12, Creatinine 0.9, Est GFR ( Amer) > 60, Est GFR (Non- Af Amer) > 60, Random Glucose 84, Calcium 9.7, Magnesium 2.0, Total Bilirubin 0.4, AST 60 H, ALT 94 H, Alkaline Phosphatase 116, Lactate Dehydrogenase 462, Total Creatine Kinase 82, Troponin I < 0.01, Total Protein 7.6, Albumin 4.1, Globulin 3.5, Albumin/Globulin Ratio 1.2 08/08/17 19:15: WBC 7.0, RBC 4.99, Hgb 14.9, Hct 42.8, MCV 85.8, MCH 29.9, MCHC 34.8, RDW 12.5, Plt Count 236, MPV 9.9, Gran % 61.9, Lymph % (Auto) 26.9, [place] % (Auto) 8.3 H, Eos % (Auto) 2.8, Baso % (Auto) 0.1, Gran # 4.35, Lymph # 1.9, [place] # 0.6, Eos # 0.2, Baso # 0.01 - RAD Interpretation Radiology Orders: 08/08/17 18:44 CHEST PORTABLE [RAD] Stat Chest 1 view shows no infiltrate or effusion or cardiomegaly Operator Prefinish: ED Physician - Scribe Statement The provider has reviewed the documentation as recorded by the Elian Meza Provider Scribe Attestation: All medical record entries made by the Elian were at my direction and personally dictated by me. I have reviewed the chart and agree that the record accurately reflects my personal performance of the history, physical exam, medical decision making, and the department course for this patient. I have also personally directed, reviewed, and agree with the discharge instructions and disposition. Disposition/Present on Arrival - Present on Arrival Any Indicators Present on Arrival: No History of DVT/PE: No History of Uncontrolled Diabetes: No Urinary Catheter: No History of Decub. Ulcer: No History Surgical Site Infection Following: None - Disposition Have Diagnosis and Disposition been Completed?: Yes Diagnosis: Chest pain, Hypertension Disposition: HOME/ ROUTINE Disposition Time: 20:32 Patient Plan: Discharge Condition: GOOD Discharge Instructions (ExitCare): Chest Pain (ED) Additional Instructions: Continue current medications. Follow-up with PMD and operator prefinish. Follow up in ER as needed. Referrals: Deanna Ahumada [Primary Care Provider] - Follow up with primary Forms: [employer] (Kinyarwanda)
[2017-08-08 19:34] LABS: BASO # 0.01 K/mm3 (0.0-2.0); BASO % 0.1 % (0.0-3.0); EOS # 0.2 (0.0-0.7); EOS % 2.8 % (1.5-5.0); GRAN # 4.35 (1.4-6.5); GRAN % 61.9 % (50.0-68.0); HEMOGLOBIN 14.9 g/dL (14.0-18.0); LYMPH # 1.9 (1.2-3.4); LYMPH % 26.9 % (22.0-35.0); MEAN CELL VOLUME 85.8 fl (80.0-105.0); MEAN CORPUSCULAR HEMOGLOBIN 29.9 pg (25.0-35.0); MEAN CORPUSCULAR HGB CONC 34.8 g/dl (31.0-37.0); MEAN PLATELET VOLUME 9.9 fl (7.0-11.0); MONO # 0.6 (0.1-0.6); MONO % 8.3 % (1.0-6.0); RBC 4.99 10^6/uL (3.5-6.1); RED CELL DISTRIBUTION WIDTH 12.5 % (11.5-14.5)
[2017-08-08 19:51] VITALS: BP 152/94; RESP 18
[2017-08-08 19:52] LABS: TROPONIN I < 0.01 ng/mL
[2017-08-08 20:02] LABS: ALB/GLOB RATIO 1.2 (1.1-1.8); ALBUMIN 4.1 g/dL (3.0-4.8); ALT/SGPT 94 U/L (7-56); AST/SGOT 60 U/L (17-59); BLOOD UREA NITROGEN 12 mg/dL (7-21); CALCIUM 9.7 mg/dL (8.4-10.5); GFR AFRICAN-AMERICAN > 60; GFR NON-AFRICAN AMERICAN > 60
[2017-08-08 20:38] VITALS: PULSE 68; TEMP 98; O2SAT 99
--- NOTE | 2017-08-09 13:57 | RAD ---
HISTORY: cp COMPARISON: 07/20/2017 FINDINGS: LUNGS: No active pulmonary disease. PLEURA: No significant pleural effusion identified, no pneumothorax apparent. CARDIOVASCULAR: Normal. OSSEOUS STRUCTURES: No significant abnormalities. VISUALIZED UPPER ABDOMEN: Normal. OTHER FINDINGS: None. IMPRESSION: No active disease.
--- NOTE | 2017-08-09 18:34 | CARD ---
APPROVED REPORT EKG Measurement Heart [id number] <Conclusion> Normal sinus rhythm Normal ECG
== END 2017-08-08 20:43 | disposition home or self-care (01) ==
LOC: ED 17:44
DX: I10 Essential (primary) hypertension (principal); R07.9 Chest pain, unspecified; I48.91 Unspecified atrial fibrillation; Z87.891 Personal history of nicotine dependence

== ENCOUNTER 2017-08-25 14:34 | Emergency (ER) | payer OTHER ==
[2017-08-25 14:35] VITALS: BMI 35.1
[2017-08-25 14:45] VITALS: RESP 18; TEMP 97.6
--- NOTE | 2017-08-25 15:15 | ED PDOC ---
Arrival/HPI - General Historian: Patient - History of Present Illness Time/Duration: Prior to Arrival, 1/2 hour Symptom Course: Resolved Quality: Burning (left chest) Activities at Onset: Rest - General Chief Complaint: Chest Pain Time Seen by Provider: 08/25/17 14:40 - History of Present Illness Narrative History of Present Illness (Text): CC: chest pain 46M with pmh angina, migraines. with left sided burning chest pain. Patient states he has a history of cocaine abuse. Patient denies specific action for specific onset. 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, quit smoking and drinking after 2014, history of cocaine abuse (Brintey Barrett) Past Medical History - Provider Review Nursing Documentation Reviewed: Yes - Travel History Have you recently traveled outside [place] w/in the past 3 mons?: No - Past History Past History: Non-Contributing - Infectious Disease Hx of Infectious Diseases: None - Past Medical History Past Medical History: Non-Contributing - Cardiac Hx Cardiac Disorders: Yes Hx Angina: Yes Hx Atrial Fibrillation: Yes Hx Hypertension: Yes - Pulmonary Hx Respiratory Disorders: No - Neurological Hx Migraine: Yes - HEENT Hx HEENT Disorder: No - Renal Hx Kidney Stones: Yes - Endocrine/Metabolic Hx Endocrine Disorders: No - Hematological/Oncological Hx Blood Disorders: No - Integumentary Hx Dermatological Disorder: No - Musculoskeletal/Rheumatological Hx Musculoskeletal Disorders: No - Gastrointestinal Hx Gastroesophageal Reflux: Yes - Genitourinary/Gynecological Hx Genitourinary Disorders: No - Psychiatric Hx Psychophysiologic Disorder: Yes Hx Anxiety: Yes Hx Depression: Yes Hx Substance Use: No - Surgical History Hx Cardiac Catheterization: Yes Other/Comment: cardaic cath - Anesthesia Hx Anesthesia: Yes Hx Anesthesia Reactions: No Hx Malignant Hyperthermia: No Family/Social History - Physician Review Nursing Documentation Reviewed: Yes Family/Social History: Unknown Family HX Smoking Status: Former Smoker Hx Alcohol Use: No Hx Substance Use: No Hx Substance Use Treatment: No Allergies/Home Meds Allergies/Adverse Reactions: Allergies ranitidine [From Zantac] Allergy (Verified 08/25/17 14:38) RASH quetiapine [From Seroquel] Adverse Reaction (Verified 08/25/17 14:38) URTICARIA Home Medications: Home Meds Medication Instructions Recorded Confirmed Aspirin [Ecotrin] 81 mg PO DAILY 02/21/17 08/25/17 Gabapentin [Gralise] 300 mg PO DAILY 02/21/17 08/25/17 diaZEpam [Valium] 5 mg PO DAILY 02/21/17 08/25/17 Butalbital/Aspirin/Caffeine 1 each PO Q8H PRN 04/15/17 08/25/17 [Zzexkh-Yxzlnjp-Eiavq 50-325-40] Cyclobenzaprine [Flexeril] 5 mg PO DAILY 04/15/17 08/25/17 Diltiazem HCl [Cartia Xt] 1 tab PO DAILY 07/17/17 08/25/17 Nitroglycerin [Nitrotab] 0.4 mg SL PRN PRN 07/17/17 08/25/17 Propranolol [Inderal LA] 80 mg PO DAILY 07/17/17 08/25/17 Ibuprofen [Motrin Tab] 800 mg PO Q6 PRN 08/25/17 08/25/17 Review of Systems - Physician Review All systems were reviewed & negative as marked: Yes - Review of Systems Constitutional: Normal. absent: Fatigue, Weight Change, Fevers Eyes: Normal. absent: Vision Changes ENT: Normal. absent: Hearing Changes, Sore Throat Respiratory: Normal. absent: SOB, Cough, Sputum, Wheezing Cardiovascular: Chest Pain (left sided burning) Gastrointestinal: Normal. absent: Abdominal Pain, Stool Changes, Constipation Genitourinary Male: Normal. absent: Dysuria, Frequency, Hematuria Musculoskeletal: Normal. absent: Arthralgias, Back Pain, Neck Pain Skin: Normal. absent: Rash, Pruritis, Skin Lesions Neurological: absent: Headache, Dizziness, Focal Weakness Endocrine: absent: Diaphoresis, Polyuria, Polydipsia Hemo/Lymphatic: absent: Adenopathy, Easy Bleeding, Easy Bruising Psychiatric: absent: Anxiety, Depression, Suicidal Ideation Physical Exam Vital Signs Reviewed: Yes Temperature: Afebrile Blood Pressure: Hypertensive Pulse: Regular Respiratory Rate: Normal Mental Status: Positive for: Alert and Oriented X 3 - Systems Exam Head: Present: Atraumatic, Normocephalic Pupils: Present: PERRL Extroacular Muscles: Present: EOMI Conjunctiva: Present: Normal Mouth: Present: Moist Mucous Membranes. No: Dry, Drooling Neck: Present: Normal Range of Motion, Trachea Midline. No: MIDLINE TENDERNESS , JVD Respiratory/Chest: Present: Clear to Auscultation, Good Air Exchange. No: Respiratory Distress, Accessory Muscle Use Cardiovascular: Present: Regular Rate and Rhythm, Normal S1, S2. No: Murmurs Abdomen: Present: Tenderness, Distention, Normal Bowel Sounds, Peritoneal Signs Upper Extremity: Present: Normal Inspection, Normal ROM, Capillary Refill < 2s. No: Edema Lower Extremity: Present: Normal Inspection, NORMAL PULSES, Normal ROM, Capillary Refill < 2 s. No: Edema Neurological: Present: GCS=15, CN II-XII Intact, Speech Normal, Motor Func Grossly Intact, Normal Sensory Function Skin: Present: Warm, Dry, Rashes, Normal Color Vital Signs Temp Pulse Resp BP Pulse Ox 08/25/17 15:28 80 18 150/99 H 95 08/25/17 14:39 97.6 F 95 H 18 175/95 H 98 Medical Decision Making Reassessment Condition: Unchanged, Improved - Lab Interpretations I have reviewed the lab results: Yes Interpretation: No clinic. lab abnormalty - EKG Interpretation Interpreted by ED Physician: Yes (NSR) Type: 12 lead EKG ED Course and Treatment: 08/25/17 15:44 cbc cmp cardiac iso urine drug screen cxr EKG 08/25/17 16:16 was offereed a second troponin I, patient decided he did not want one. Patient no longer experiencing chest pain. previous cath in 2014 showed no CAD (Eng, Britney) 08/25/17 17:33 pt seen with resident. atypical pain, burning lasting seconds, neg cath 2014. inital trop neg. requet serial trop, pt declines asking ffor manuel (Rosales Sorto) - Lab Interpretations Lab Results: 08/25/17 15:20 08/25/17 15:20 Lab Results 08/25/17 15:20: Sodium 141, Potassium 3.7, Chloride 100, Carbon Dioxide 29, Anion Gap 16, BUN 14, Creatinine 0.9, Est GFR ( Amer) > 60, Est GFR (Non- Af Amer) > 60, Random Glucose 98, Calcium 9.8, Magnesium 2.0, Total Bilirubin 0.5, AST 50, ALT 112 H, Alkaline Phosphatase 118, Lactate Dehydrogenase 467, Total Creatine Kinase 65, Troponin I < 0.01, Total Protein 7.4, Albumin 4.1, Globulin 3.3, Albumin/Globulin Ratio 1.2 08/25/17 15:20: WBC 8.5, RBC 5.03, Hgb 15.1, Hct 43.4, MCV 86.3, MCH 30.0, MCHC 34.8, RDW 12.5, Plt Count 236, MPV 10.1, Gran % 74.8 H, Lymph % (Auto) 16.7 L, [place] % (Auto) 7.0 H, Eos % (Auto) 1.4 L, Baso % (Auto) 0.1, Gran # 6.38, Lymph # (Auto) 1.4, [place] # (Auto) 0.6, Eos # (Auto) 0.1, Baso # (Auto) 0.01 - RAD Interpretation Radiology Orders: 08/25/17 15:15 CXR [CHEST PORTABLE] [RAD] Stat Disposition/Present on Arrival - Present on Arrival Any Indicators Present on Arrival: No History of DVT/PE: No History of Uncontrolled Diabetes: No Urinary Catheter: No History of Decub. Ulcer: No History Surgical Site Infection Following: None - Disposition Have Diagnosis and Disposition been Completed?: No Disposition Time: 15:52 Patient Plan: Discharge - Disposition Diagnosis: Chest pain Disposition: HOME/ ROUTINE Condition: IMPROVED Discharge Instructions (ExitCare): Chest Pain (ED) Additional Instructions: return to Emergency department if chest pain, numbness, tingling, weakness, nausea, vomiting consider talking to a support system for stressors in life Try to maintain a healthy a lifestyle Referrals: Avenda Systemsbear Morales, [Primary Care Provider] - Follow up with primary Forms: [email or web address] (Ukrainian)
[2017-08-25 15:29] VITALS: BP 150/99; PULSE 80; O2SAT 95
--- NOTE | 2017-08-25 15:33 | RAD ---
HISTORY: hx of cocaine use COMPARISON: 08/20/2017 FINDINGS: LUNGS: No active pulmonary disease. PLEURA: No significant pleural effusion identified, no pneumothorax apparent. CARDIOVASCULAR: Normal. OSSEOUS STRUCTURES: No significant abnormalities. VISUALIZED UPPER ABDOMEN: Normal. OTHER FINDINGS: None. IMPRESSION: No active disease.
[2017-08-25 15:39] LABS: BASO # 0.01 K/mm3 (0.0-2.0); BASO % 0.1 % (0.0-3.0); EOS # 0.1 (0.0-0.7); EOS % 1.4 % (1.5-5.0); GRAN # 6.38 (1.4-6.5); GRAN % 74.8 % (50.0-68.0); HEMOGLOBIN 15.1 g/dL (14.0-18.0); LYMPH # 1.4 (1.2-3.4); LYMPH % 16.7 % (22.0-35.0); MEAN CELL VOLUME 86.3 fl (80.0-105.0); MEAN CORPUSCULAR HGB CONC 34.8 g/dl (31.0-37.0); MEAN PLATELET VOLUME 10.1 fl (7.0-11.0); MONO # 0.6 (0.1-0.6); RBC 5.03 10^6/uL (3.5-6.1); RED CELL DISTRIBUTION WIDTH 12.5 % (11.5-14.5); WHITE BLOOD COUNT 8.5 10^3/ul (4.5-11.0)
[2017-08-25 15:49] LABS: ALB/GLOB RATIO 1.2 (1.1-1.8); ALBUMIN 4.1 g/dL (3.0-4.8); ALT/SGPT 112 U/L (7-56); AST/SGOT 50 U/L (17-59); BLOOD UREA NITROGEN 14 mg/dL (7-21); CALCIUM 9.8 mg/dL (8.4-10.5); GFR AFRICAN-AMERICAN > 60; GFR NON-AFRICAN AMERICAN > 60
[2017-08-25 16:00] LABS: TROPONIN I < 0.01 ng/mL
--- NOTE | 2017-08-25 23:48 | CARD ---
APPROVED REPORT EKG Measurement Heart [id number] DC 142P56 [id number] <Conclusion> Normal sinus rhythm Septal infarct, age undetermined Abnormal ECG
== END 2017-08-25 16:27 | disposition home or self-care (01) ==
LOC: ED 14:34
DX: R07.9 Chest pain, unspecified (principal); I20.9 Angina pectoris, unspecified; I10 Essential (primary) hypertension; I48.91 Unspecified atrial fibrillation; Z87.891 Personal history of nicotine dependence

== ENCOUNTER 2017-09-21 11:13 | Emergency (ER) | payer OTHER ==
[2017-09-21 11:27] VITALS: BMI 33.5
--- NOTE | 2017-09-21 11:43 | ED PDOC ---
Arrival/HPI - General Chief Complaint: Male Genitourinary Time Seen by Provider: 09/21/17 11:26 Historian: Patient - History of Present Illness Narrative History of Present Illness (Text): 09/21/17 11:40 46yo male with multiple co morbidities who present with complaint of burning back pain. He notes history of kidney stone, states the pain was similar to when he had kidney stone 2years ago. States the pain lasted minutes and then stopped. Denies current pain. Denies nausea, vomiting, urinary symptoms, abdominal pain, fever, chills, any other complaint. Past Medical History - Provider Review Nursing Documentation Reviewed: Yes - Past History Past History: Non-Contributing - Infectious Disease Hx of Infectious Diseases: None - Past Medical History Past Medical History: Non-Contributing - Cardiac Hx Cardiac Disorders: Yes Hx Angina: Yes Hx Atrial Fibrillation: Yes Hx Hypertension: Yes - Pulmonary Hx Respiratory Disorders: No - Neurological Hx Migraine: Yes - HEENT Hx HEENT Disorder: No - Renal Hx Kidney Stones: Yes - Endocrine/Metabolic Hx Endocrine Disorders: No - Hematological/Oncological Hx Blood Disorders: No - Integumentary Hx Dermatological Disorder: No - Musculoskeletal/Rheumatological Hx Musculoskeletal Disorders: No - Gastrointestinal Hx Gastroesophageal Reflux: Yes - Genitourinary/Gynecological Hx Genitourinary Disorders: No - Psychiatric Hx Psychophysiologic Disorder: Yes Hx Anxiety: Yes Hx Depression: Yes Hx Substance Use: No - Surgical History Hx Cardiac Catheterization: Yes Other/Comment: cardaic cath - Anesthesia Hx Anesthesia: Yes Hx Anesthesia Reactions: No Hx Malignant Hyperthermia: No Family/Social History - Physician Review Nursing Documentation Reviewed: Yes Family/Social History: Unknown Family HX Smoking Status: Former Smoker Hx Alcohol Use: No Hx Substance Use: No Hx Substance Use Treatment: No Allergies/Home Meds Allergies/Adverse Reactions: Allergies ranitidine [From Zantac] Allergy (Verified 08/25/17 14:38) RASH quetiapine [From Seroquel] Adverse Reaction (Verified 08/25/17 14:38) URTICARIA Home Medications: Home Meds Medication Instructions Recorded Confirmed Aspirin [Ecotrin] 81 mg PO DAILY 02/21/17 09/21/17 Gabapentin [Gralise] 300 mg PO DAILY 02/21/17 09/21/17 diaZEpam [Valium] 5 mg PO DAILY 02/21/17 09/21/17 Butalbital/Aspirin/Caffeine 1 each PO Q8H PRN 04/15/17 09/21/17 [Nnjwco-Gbturmm-Ourov 50-325-40] Cyclobenzaprine [Flexeril] 5 mg PO DAILY 04/15/17 09/21/17 Nitroglycerin [Nitrotab] 0.4 mg SL PRN PRN 07/17/17 09/21/17 Propranolol [Inderal LA] 80 mg PO DAILY 07/17/17 09/21/17 Ibuprofen [Motrin Tab] 800 mg PO Q6 PRN 08/25/17 09/21/17 Diltiazem HCl [Cartia Xt] 240 mg PO DAILY 09/21/17 09/21/17 Fluticasone Nasal [Flonase] 1 spray PAYAM DAILY 09/21/17 09/21/17 Meclizine HCl [Motion-Time] 25 mg PO DAILY PRN 09/21/17 09/21/17 Review of Systems - Physician Review All systems were reviewed & negative as marked: Yes - Review of Systems Constitutional: Normal Eyes: Normal ENT: Normal Respiratory: Normal Cardiovascular: Normal Gastrointestinal: Normal Genitourinary Male: Normal Musculoskeletal: Back Pain Skin: Normal Neurological: Normal Endocrine: Normal Hemo/Lymphatic: Normal Psychiatric: Normal Physical Exam Vital Signs Reviewed: Yes Temperature: Afebrile Blood Pressure: Normal Pulse: Regular Respiratory Rate: Normal Appearance: Positive for: Well-Appearing, Non-Toxic, Comfortable Pain Distress: None Mental Status: Positive for: Alert and Oriented X 3 - Systems Exam Head: Present: Atraumatic, Normocephalic Pupils: Present: PERRL Extroacular Muscles: Present: EOMI Conjunctiva: Present: Normal Mouth: Present: Moist Mucous Membranes Neck: Present: Normal Range of Motion Respiratory/Chest: Present: Clear to Auscultation, Good Air Exchange. No: Respiratory Distress, Accessory Muscle Use Cardiovascular: Present: Regular Rate and Rhythm, Normal S1, S2. No: Murmurs Abdomen: Present: Normal Bowel Sounds. No: Tenderness, Distention, Peritoneal Signs Back: No: CVA Tenderness, Midline Tenderness, Paraspinal Tenderness, Pain with Leg Raise Upper Extremity: Present: Normal Inspection. No: Cyanosis, Edema Lower Extremity: Present: Normal Inspection. No: Edema Neurological: Present: GCS=15, CN II-XII Intact, Speech Normal Skin: Present: Warm, Dry, Normal Color. No: Rashes Psychiatric: Present: Alert, Oriented x 3, Normal Insight, Normal Concentration Medical Decision Making ED Course and Treatment: 09/21/17 19:06 Pt notes that he is not in pain while in ED. Abdominal CT - Negative UA negative Result was DW the pt and he was referred to his PMD - Lab Interpretations Lab Results: Lab Results 09/21/17 12:30: Urine Color Yellow, Urine Appearance Clear, Urine pH 7.5, Ur Specific Mio 1.010, Urine Protein Negative, Urine Glucose (UA) Negative, Urine Ketones Negative, Urine Blood Negative, Urine Nitrate Negative, Urine Bilirubin Negative, Urine Urobilinogen 0.2, Ur Leukocyte Esterase Negative - RAD Interpretation Radiology Orders: 09/21/17 11:30 ABD & PELVIS W/O PO OR IV CONT [CT] Stat Disposition/Present on Arrival - Present on Arrival Any Indicators Present on Arrival: No History of DVT/PE: No History of Uncontrolled Diabetes: No Urinary Catheter: No History of Decub. Ulcer: No History Surgical Site Infection Following: None - Disposition Have Diagnosis and Disposition been Completed?: Yes Diagnosis: Back pain Disposition: HOME/ ROUTINE Disposition Time: 13:00 Patient Plan: Discharge Condition: STABLE Additional Instructions: Follow up with your doctor Return to ED for any new or worsening symptoms Referrals: Deanna Ahumada [Primary Care Provider] - Follow up with primary Forms: [employer] (Azeri)
--- NOTE | 2017-09-21 12:08 | CT ---
PROCEDURE: CT Abdomen and Pelvis without intravenous contrast HISTORY: back pain h/o kidney stone COMPARISON: None. TECHNIQUE: Without contrast. Contrast Dose: Radiation dose: Total exam DLP = 1051 mGy-cm. This CT exam was performed using one or more of the following dose reduction techniques: Automated exposure control, adjustment of the mA and/or kV according to patient size, and/or use of iterative reconstruction technique. FINDINGS: LOWER THORAX: Unremarkable. LIVER: Unremarkable. No gross lesion or ductal dilatation. GALLBLADDER AND BILE DUCTS: Unremarkable. PANCREAS: Unremarkable. No gross lesion or ductal dilatation. SPLEEN: Unremarkable. ADRENALS: Unremarkable. No mass. KIDNEYS AND URETERS: Unremarkable. No hydronephrosis. No solid mass. VASCULATURE: Unremarkable. No aortic aneurysm. BOWEL: Unremarkable. No obstruction. No gross mural thickening. APPENDIX: Unremarkable. Normal appendix. PERITONEUM: Unremarkable. No free fluid. No free air. LYMPH NODES: Unremarkable. No enlarged lymph nodes. BLADDER: Unremarkable. REPRODUCTIVE: Unremarkable. BONES: No acute fracture. OTHER FINDINGS: None. IMPRESSION: No acute intra-abdominal findings. No evidence of nephrolithiasis or obstructive uropathy
[2017-09-21 12:45] LABS: PH,URINE 7.5 (4.7-8.0); URINE BILIRUBIN NEGATIVE (NEGATIVE); URINE BLOOD NEGATIVE (NEGATIVE); URINE GLUCOSE (UA) NEGATIVE (NEGATIVE); URINE LEUKOCYTE ESTERASE NEGATIVE Leu/uL (NEGATIVE); URINE PROTEIN NEGATIVE mg/dL (<30 mg/dL); URINE UROBILINOGEN 0.2 E.U./dL (<1 E.U./dL)
[2017-09-21 12:58] LABS: URINE APPEARANCE CLEAR (CLEAR); URINE COLOR YELLOW (YELLOW)
== END 2017-09-21 13:30 | disposition home or self-care (01) ==
LOC: ED 11:13
DX: M54.9 Dorsalgia, unspecified (principal); I10 Essential (primary) hypertension; I48.91 Unspecified atrial fibrillation; Z87.891 Personal history of nicotine dependence

== ENCOUNTER 2017-09-28 22:59 | Emergency (ER) | payer OTHER ==
[2017-09-28 23:05] VITALS: BMI 34.7
[2017-09-28 23:17] VITALS: RESP 18
--- NOTE | 2017-09-28 23:26 | ED PDOC ---
Arrival/HPI - General Chief Complaint: Upper Extremity Problem/Injury Time Seen by Provider: 09/28/17 23:13 Historian: Patient - History of Present Illness Narrative History of Present Illness (Text): 09/28/17 23:23 Nicolas Loco Jr is a 46 year old male who presents to the emergency department, brought in by ambulance for a 90 minute episode of left chest heaviness this evening. Left chest pain resolved and now is asymptomatic in the ED. Patient notes that he has had similar episodes multiple times previously. Patient reports that he has been worked up recently and discharged home. Patient denies any diaphoresis, dizziness, shortness of breath, nausea, vomiting, or any other complaints at this time. Time/Duration: 1-3 hours Symptom Onset: Sudden Symptom Course: Resolved Quality: Aching, Pressure Severity Level: 4 Activities at Onset: Rest Context: Home Past Medical History - Provider Review Nursing Documentation Reviewed: Yes - Travel History Have you recently traveled outside [place] w/in the past 3 mons?: No - Past History Past History: Non-Contributing - Infectious Disease Hx of Infectious Diseases: None - Past Medical History Past Medical History: Non-Contributing - Cardiac Hx Cardiac Disorders: Yes Hx Angina: Yes Hx Atrial Fibrillation: Yes Hx Hypertension: Yes - Pulmonary Hx Respiratory Disorders: No - Neurological Hx Migraine: Yes - HEENT Hx HEENT Disorder: No - Renal Hx Kidney Stones: Yes - Endocrine/Metabolic Hx Endocrine Disorders: No - Hematological/Oncological Hx Blood Disorders: No - Integumentary Hx Dermatological Disorder: No - Musculoskeletal/Rheumatological Hx Musculoskeletal Disorders: No - Gastrointestinal Hx Gastroesophageal Reflux: Yes - Genitourinary/Gynecological Hx Genitourinary Disorders: No - Psychiatric Hx Psychophysiologic Disorder: Yes Hx Anxiety: Yes Hx Depression: Yes Hx Substance Use: No - Surgical History Hx Cardiac Catheterization: Yes Other/Comment: cardaic cath - Anesthesia Hx Anesthesia: Yes Hx Anesthesia Reactions: No Hx Malignant Hyperthermia: No Family/Social History - Physician Review Nursing Documentation Reviewed: Yes Family/Social History: Unknown Family HX Smoking Status: Former Smoker Hx Alcohol Use: No Hx Substance Use: No Hx Substance Use Treatment: No Allergies/Home Meds Allergies/Adverse Reactions: Allergies ranitidine [From Zantac] Allergy (Verified 08/25/17 14:38) RASH quetiapine [From Seroquel] Adverse Reaction (Verified 08/25/17 14:38) URTICARIA Home Medications: Home Meds Medication Instructions Recorded Confirmed Aspirin [Ecotrin] 81 mg PO DAILY 02/21/17 09/21/17 Gabapentin [Gralise] 300 mg PO DAILY 02/21/17 09/21/17 diaZEpam [Valium] 5 mg PO DAILY 02/21/17 09/21/17 Butalbital/Aspirin/Caffeine 1 each PO Q8H PRN 04/15/17 09/21/17 [[id number]-[id number] 50-325-40] Cyclobenzaprine [Flexeril] 5 mg PO DAILY 04/15/17 09/21/17 Nitroglycerin [Nitrotab] 0.4 mg SL PRN PRN 07/17/17 09/21/17 Propranolol [Inderal LA] 80 mg PO DAILY 07/17/17 09/21/17 Ibuprofen [Motrin Tab] 800 mg PO Q6 PRN 08/25/17 09/21/17 Diltiazem HCl [Cartia Xt] 240 mg PO DAILY 09/21/17 09/21/17 Fluticasone Nasal [Flonase] 1 spray PAYAM DAILY 09/21/17 09/21/17 Meclizine HCl [Motion-Time] 25 mg PO DAILY PRN 09/21/17 09/21/17 Review of Systems - Physician Review All systems were reviewed & negative as marked: Yes - Review of Systems Constitutional: Normal Eyes: Normal ENT: Normal Respiratory: Normal Cardiovascular: Normal Gastrointestinal: Normal Genitourinary Male: Normal Musculoskeletal: Normal Skin: Normal Neurological: Normal Endocrine: Normal Hemo/Lymphatic: Normal Psychiatric: Normal Physical Exam Vital Signs Reviewed: Yes Vital Signs Temp Pulse Resp BP Pulse Ox 09/28/17 23:15 97.7 F 81 18 141/79 99 Temperature: Afebrile Blood Pressure: Normal Pulse: Regular Respiratory Rate: Normal Appearance: Positive for: Well-Appearing, Non-Toxic, Comfortable Pain Distress: None Mental Status: Positive for: Alert and Oriented X 3 - Systems Exam Head: Present: Atraumatic, Normocephalic Pupils: Present: PERRL Extroacular Muscles: Present: EOMI Conjunctiva: Present: Normal, Injected (bilateral ) Mouth: Present: Moist Mucous Membranes Neck: Present: Normal Range of Motion Respiratory/Chest: Present: Clear to Auscultation, Good Air Exchange. No: Respiratory Distress, Accessory Muscle Use Cardiovascular: Present: Regular Rate and Rhythm, Normal S1, S2. No: Murmurs Abdomen: Present: Normal Bowel Sounds. No: Tenderness, Distention, Peritoneal Signs Back: Present: Normal Inspection Upper Extremity: Present: Normal Inspection. No: Cyanosis, Edema Lower Extremity: Present: Normal Inspection. No: Edema Neurological: Present: GCS=15, CN II-XII Intact, Speech Normal Skin: Present: Warm, Dry, Normal Color. No: Rashes Psychiatric: Present: Alert, Oriented x 3, Normal Insight, Normal Concentration Medical Decision Making ED Course and Treatment: 09/28/17 23:26 Impression Nicolas Loco Jr is a 46 year old male who presents to the emergency department, brought in by ambulance for a 90 minute episode of left chest heaviness this evening. Left chest pain resolved and now is asymptomatic in the ED. Pt has h/o muscle spasms; no significant physical exam findings Plan Chest pain workup ecg chest xr assess and dispo Progress Note pt remains comfortable in bed awaiting lab results; called to expedite posting but unavailable labs returned wnl Pt stable and ready to go home; will f/u with Primary 09/29/17 01:17 - Lab Interpretations Lab Results: 09/28/17 23:50 09/28/17 23:50 Lab Results 09/28/17 23:50: WBC 7.8, RBC 5.21, Hgb 15.6, Hct 44.1, MCV 84.6, MCH 29.9, MCHC 35.4, RDW 12.4, Plt Count 249, MPV 10.3 09/28/17 23:50: Sodium 138, Potassium 4.1, Chloride 104, Carbon Dioxide 26, Anion Gap 13, BUN 16, Creatinine 1.0, Est GFR ( Amer) > 60, Est GFR (Non- Af Amer) > 60, Random Glucose 115 H, Calcium 9.9, Total Bilirubin 0.4, AST 52, ALT 91 H, Alkaline Phosphatase 130 H, Lactate Dehydrogenase 591, Total Creatine Kinase 125, Troponin I < 0.01, Total Protein 7.4, Albumin 4.1, Globulin 3.3, Albumin/Globulin Ratio 1.2 I have reviewed the lab results: Yes Interpretation: All labs normal - RAD Interpretation Radiology Orders: 09/28/17 23:21 CXR [CHEST PORTABLE] [RAD] Stat - EKG Interpretation Interpreted by ED Physician: Yes (NSR with a rate of 78) Disposition/Present on Arrival - Present on Arrival Any Indicators Present on Arrival: Yes History of DVT/PE: No History of Uncontrolled Diabetes: No Urinary Catheter: No History of Decub. Ulcer: No History Surgical Site Infection Following: None - Disposition Have Diagnosis and Disposition been Completed?: Yes Diagnosis: Shoulder pain, left Disposition: HOME/ ROUTINE Disposition Time: 01:45 Patient Plan: Discharge Patient Problems: Current Active Problems Problem Status Onset Shoulder pain, left Acute Condition: STABLE Discharge Instructions (ExitCare): Shoulder Pain (DC) Additional Instructions: Dear Nicolas, Please continue taking the medications that you were prescribed and follow up with your Primary doctor in the next 2 days. If you experience any alarming signs in the next 12-24 hours, return to the emergency department immediately. Be Well Forms: [employer] (Ugandan)
[2017-09-29] LABS: HEMOGLOBIN 15.6 g/dL (14.0-18.0); MEAN CELL VOLUME 84.6 fl (80.0-105.0); MEAN CORPUSCULAR HEMOGLOBIN 29.9 pg (25.0-35.0); MEAN CORPUSCULAR HGB CONC 35.4 g/dl (31.0-37.0); MEAN PLATELET VOLUME 10.3 fl (7.0-11.0); RBC 5.21 10^6/uL (3.5-6.1); RED CELL DISTRIBUTION WIDTH 12.4 % (11.5-14.5); WHITE BLOOD COUNT 7.8 10^3/ul (4.5-11.0)
[2017-09-29 00:28] LABS: ALB/GLOB RATIO 1.2 (1.1-1.8); ALBUMIN 4.1 g/dL (3.0-4.8); CALCIUM 9.9 mg/dL (8.4-10.5); GFR AFRICAN-AMERICAN > 60; GFR NON-AFRICAN AMERICAN > 60
[2017-09-29 00:39] LABS: TROPONIN I < 0.01 ng/mL
[2017-09-29 01:02] LABS: ALT/SGPT 91 U/L (7-56); AST/SGOT 52 U/L (17-59); BLOOD UREA NITROGEN 16 mg/dL (7-21)
[2017-09-29 01:59] VITALS: TEMP 98.2
[2017-09-29 04:52] VITALS: BP 132/75; PULSE 80; O2SAT 98
--- NOTE | 2017-09-29 08:22 | RAD ---
HISTORY: chest pain COMPARISON: 08/25/2017 FINDINGS: LUNGS: No active pulmonary disease. PLEURA: No significant pleural effusion identified, no pneumothorax apparent. CARDIOVASCULAR: Normal. OSSEOUS STRUCTURES: No significant abnormalities. VISUALIZED UPPER ABDOMEN: Normal. OTHER FINDINGS: None. IMPRESSION: No active disease.
--- NOTE | 2017-09-29 11:27 | CARD ---
APPROVED REPORT EKG Measurement Heart [id number] MD 142P50 [id number] <Conclusion> Normal sinus rhythm QS in V 1, possible septal OR No change
== END 2017-09-29 01:58 | disposition home or self-care (01) ==
LOC: ED 22:59
DX: M25.512 Pain in left shoulder (principal); I10 Essential (primary) hypertension; I48.91 Unspecified atrial fibrillation; Z87.891 Personal history of nicotine dependence

== ENCOUNTER 2017-11-23 13:48 | Emergency (ER) | payer OTHER ==
[2017-11-23 13:52] VITALS: BMI 35.1
--- NOTE | 2017-11-23 14:26 | ED PDOC ---
Arrival/HPI - General Chief Complaint: Upper Extremity Problem/Injury Time Seen by Provider: 11/23/17 13:49 Historian: Patient - History of Present Illness Narrative History of Present Illness (Text): 11/23/17 14:39 A 47 year old male, with multiple previous visits to the emergency department for atypical chest pain, was brought in by EMS to the emergency department for evaluation of anxiety and left shoulder pain. Patient reports he was walking when he developed left shoulder pain and felt anxious. Patient reports he was worried about his heart. Patient was given Nitro, Aspirin 324 mg and Flexeril prior to arrival, with relief. Patient denies any associated Shortness of breath , leg swelling, numbness or weakness. Denies any other complaints at this time. Symptom Onset: Sudden Symptom Course: Unchanged Activities at Onset: Light Context: Walking Past Medical History - Provider Review Nursing Documentation Reviewed: Yes - Past History Past History: Non-Contributing - Infectious Disease Hx of Infectious Diseases: None - Past Medical History Past Medical History: Non-Contributing - Cardiac Hx Cardiac Disorders: Yes Hx Angina: Yes Hx Atrial Fibrillation: Yes Hx Hypertension: Yes - Pulmonary Hx Respiratory Disorders: No - Neurological Hx Migraine: Yes - HEENT Hx HEENT Disorder: No - Renal Hx Kidney Stones: Yes - Endocrine/Metabolic Hx Endocrine Disorders: No - Hematological/Oncological Hx Blood Disorders: No - Integumentary Hx Dermatological Disorder: No - Musculoskeletal/Rheumatological Hx Musculoskeletal Disorders: No - Gastrointestinal Hx Gastroesophageal Reflux: Yes - Genitourinary/Gynecological Hx Genitourinary Disorders: No - Psychiatric Hx Psychophysiologic Disorder: Yes Hx Anxiety: Yes Hx Depression: Yes Hx Substance Use: No - Surgical History Hx Cardiac Catheterization: Yes Other/Comment: cardaic cath - Anesthesia Hx Anesthesia: Yes Hx Anesthesia Reactions: No Hx Malignant Hyperthermia: No Family/Social History - Physician Review Nursing Documentation Reviewed: Yes Family/Social History: No Known Family HX Smoking Status: Former Smoker Hx Alcohol Use: No Hx Substance Use: No Hx Substance Use Treatment: No Allergies/Home Meds Allergies/Adverse Reactions: Allergies ranitidine [From Zantac] Allergy (Verified 08/25/17 14:38) RASH quetiapine [From Seroquel] Adverse Reaction (Verified 08/25/17 14:38) URTICARIA Home Medications: Home Meds Medication Instructions Recorded Confirmed Aspirin [Ecotrin] 81 mg PO DAILY 02/21/17 11/23/17 Gabapentin [Gralise] 300 mg PO DAILY 02/21/17 11/23/17 diaZEpam [Valium] 5 mg PO DAILY 02/21/17 11/23/17 Butalbital/Aspirin/Caffeine 1 each PO Q8H PRN 04/15/17 11/23/17 [[id number] 50-325-40] Cyclobenzaprine [Flexeril] 5 mg PO DAILY 04/15/17 11/23/17 Nitroglycerin [Nitrotab] 0.4 mg SL PRN PRN 07/17/17 11/23/17 Propranolol [Inderal LA] 80 mg PO DAILY 07/17/17 11/23/17 Ibuprofen [Motrin Tab] 800 mg PO Q6 PRN 08/25/17 11/23/17 Diltiazem HCl [Cartia Xt] 240 mg PO DAILY 09/21/17 11/23/17 Fluticasone Nasal [Flonase] 1 spray PAYAM DAILY 09/21/17 11/23/17 Meclizine HCl [Motion-Time] 25 mg PO DAILY PRN 09/21/17 11/23/17 Review of Systems - Physician Review All systems were reviewed & negative as marked: Yes - Review of Systems Constitutional: absent: Fevers Respiratory: absent: SOB Musculoskeletal: Other (left shoulder pain; no leg swelling, numbness or weakness) Psychiatric: Anxiety Physical Exam Vital Signs Reviewed: Yes Vital Signs Temp Pulse Resp BP Pulse Ox 11/23/17 14:02 97.8 F 95 H 18 155/92 H 97 Temperature: Afebrile Blood Pressure: Hypertensive Pulse: Regular Respiratory Rate: Normal Appearance: Positive for: Well-Appearing, Non-Toxic, Comfortable Pain Distress: None Mental Status: Positive for: Alert and Oriented X 3 Finger Stick Blood Glucose: 102 - Systems Exam Head: Present: Atraumatic, Normocephalic Pupils: Present: PERRL Extroacular Muscles: Present: EOMI Conjunctiva: Present: Normal Mouth: Present: Moist Mucous Membranes Neck: Present: Normal Range of Motion Respiratory/Chest: Present: Clear to Auscultation, Good Air Exchange. No: Respiratory Distress, Accessory Muscle Use Cardiovascular: Present: Regular Rate and Rhythm, Normal S1, S2. No: Murmurs Abdomen: No: Tenderness, Distention, Peritoneal Signs Back: Present: Normal Inspection Upper Extremity: Present: Normal Inspection. No: Cyanosis, Edema Lower Extremity: Present: Normal Inspection. No: Edema Neurological: Present: GCS=15, CN II-XII Intact, Speech Normal Skin: Present: Warm, Dry, Normal Color. No: Rashes Psychiatric: Present: Alert, Oriented x 3, Normal Insight, Normal Concentration Medical Decision Making ED Course and Treatment: 11/23/17 14:26 Impression: A 47 year old male with anxiety and left shoulder pain, currently resolved. Plan: -- EKG -- chest xray -- labs -- Reassess and disposition Prior Visits: Notes and results from previous visits were reviewed. Patient last reported to the emergency department on 09/28/17 for evaluation of left sided chest pain. Progress Notes: EKG shows normal sinus rhythm at 87 BPM with normal intervals and no ST changes 11/23/17 14:26 Spoke to patient's network operations technician, Dr. Praveen Tompkins and he recommends trop x 2 and then dc after 2014 cath that showed minimal CAD 11/23/17 14:57 chest xray Creator : Bob Feliciano MD FINDINGS: LUNGS: No active pulmonary disease. PLEURA: No significant pleural effusion identified, no pneumothorax apparent. CARDIOVASCULAR: Normal. OSSEOUS STRUCTURES: No significant abnormalities. VISUALIZED UPPER ABDOMEN: Normal. IMPRESSION: No active disease. 11/23/17 17:37 Trop x 1 negative. Patient now reporting that he does not want to stay for repeat trop and wants to leave. AMA 11/23/17 17:55 Leaving Against Medical Advice (AMA): The patient is choosing to leave against medical advice. I have personally explained to the patient that choosing to do so may result in permanent bodily harm or . I have discussed at great length that without further evaluation and monitoring there may be unforeseen circumstances and/or deterioration causing permanent bodily harm or as a result of their choice. The patient is alert, oriented, and shows the mental capacity to make clear decisions regarding the patients health care at this time. The patient continues to wish to leave against medical advice. The patient has been advised that they should return to the emergency room immediately if they change their mind at any time, or if their condition begins to change or worsen in any way. - Lab Interpretations Lab Results: 11/23/17 14:44 11/23/17 14:44 Lab Results 11/23/17 14:44: Sodium 144, Potassium 4.3, Chloride 103, Carbon Dioxide 28, Anion Gap 17, BUN 16, Creatinine 1.0, Est GFR ( Amer) > 60, Est GFR (Non- Af Amer) > 60, Random Glucose 96, Calcium 9.6, Total Bilirubin 0.4, AST 58, ALT 132 H, Alkaline Phosphatase 123, Troponin I < 0.01, Total Protein 7.4, Albumin 4.2, Globulin 3.2, Albumin/Globulin Ratio 1.3 11/23/17 14:44: WBC 7.3, RBC 5.20, Hgb 15.6, Hct 43.4, MCV 83.5, MCH 30.0, MCHC 35.9, RDW 12.3, Plt Count 231, MPV 9.8, Gran % 70.5 H, Lymph % (Auto) 17.5 L, [place] % (Auto) 10.2 H, Eos % (Auto) 1.4 L, Baso % (Auto) 0.4, Gran # 5.16, Lymph # (Auto) 1.3, Will[place] # (Auto) 0.8 H, Eos # (Auto) 0.1, Baso # (Auto) 0.03 11/23/17 14:00: POC Glucose (mg/dL) 102 I have reviewed the lab results: Yes - RAD Interpretation Radiology Orders: 11/23/17 14:25 CHEST PORTABLE [RAD] Stat - EKG Interpretation Interpreted by ED Physician: Yes Type: 12 lead EKG - Scribe Statement The provider has reviewed the documentation as recorded by the Jeremyibsuzie Ley All medical record entries made by the Jeremyibsuzie were at my direction and personally dictated by me. I have reviewed the chart and agree that the record accurately reflects my personal performance of the history, physical exam, medical decision making, and the department course for this patient. I have also personally directed, reviewed, and agree with the discharge instructions and disposition. Disposition/Present on Arrival - Present on Arrival Any Indicators Present on Arrival: No History of DVT/PE: No History of Uncontrolled Diabetes: No Urinary Catheter: No History of Decub. Ulcer: No History Surgical Site Infection Following: None - Disposition Have Diagnosis and Disposition been Completed?: Yes Diagnosis: Arm pain, Chest pain Disposition: AGAINST MEDICAL ADVICE Disposition Time: 17:37 Patient Plan: Discharge Patient Problems: Current Active Problems Problem Status Onset Arm pain Acute Chest pain Acute Condition: GOOD Discharge Instructions (ExitCare): Chest Pain (ED) Additional Instructions: Return immediately if you want treatment. Follow-up with your network operations technician within 2 days. Referrals: [facility], [Non-Staff] - Follow up with primary Forms: [email or web address] (Bur[place]ian)
[2017-11-23 14:50] LABS: BASO # 0.03 K/mm3 (0.0-2.0); BASO % 0.4 % (0.0-3.0); EOS # 0.1 (0.0-0.7); EOS % 1.4 % (1.5-5.0); GRAN # 5.16 (1.4-6.5); GRAN % 70.5 % (50.0-68.0); HEMOGLOBIN 15.6 g/dL (14.0-18.0); LYMPH # 1.3 (1.2-3.4); LYMPH % 17.5 % (22.0-35.0); MEAN CELL VOLUME 83.5 fl (80.0-105.0); MEAN CORPUSCULAR HGB CONC 35.9 g/dl (31.0-37.0); MEAN PLATELET VOLUME 9.8 fl (7.0-11.0); MONO # 0.8 (0.1-0.6); MONO % 10.2 % (1.0-6.0); RBC 5.2 10^6/uL (3.5-6.1); RED CELL DISTRIBUTION WIDTH 12.3 % (11.5-14.5); WHITE BLOOD COUNT 7.3 10^3/ul (4.5-11.0)
--- NOTE | 2017-11-23 14:55 | RAD ---
HISTORY: chest pain COMPARISON: 09/28/2017 FINDINGS: LUNGS: No active pulmonary disease. PLEURA: No significant pleural effusion identified, no pneumothorax apparent. CARDIOVASCULAR: Normal. OSSEOUS STRUCTURES: No significant abnormalities. VISUALIZED UPPER ABDOMEN: Normal. OTHER FINDINGS: None. IMPRESSION: No active disease.
[2017-11-23 15:06] LABS: ALB/GLOB RATIO 1.3 (1.1-1.8); ALBUMIN 4.2 g/dL (3.0-4.8); ALT/SGPT 132 U/L (7-56); AST/SGOT 58 U/L (17-59); BLOOD UREA NITROGEN 16 mg/dL (7-21); CALCIUM 9.6 mg/dL (8.4-10.5); GFR AFRICAN-AMERICAN > 60; GFR NON-AFRICAN AMERICAN > 60
[2017-11-23 15:26] LABS: TROPONIN I < 0.01 ng/mL
--- NOTE | 2017-11-23 16:03 | CARD ---
APPROVED REPORT EKG Measurement Heart [id number] [place] [id number] <Conclusion> Normal sinus rhythm QS in V1, possible septal LA NSSTW changes
[2017-11-23 18:19] VITALS: BP 149/80; PULSE 92; RESP 19; TEMP 98; O2SAT 99
== END 2017-11-23 18:21 | disposition left against medical advice (07) ==
LOC: ED 13:48
DX: R07.9 Chest pain, unspecified (principal); M79.602 Pain in left arm; I20.9 Angina pectoris, unspecified; I48.91 Unspecified atrial fibrillation; I10 Essential (primary) hypertension; Z87.891 Personal history of nicotine dependence

== ENCOUNTER 2017-12-18 04:55 | Emergency (ER) | payer OTHER ==
[2017-12-18 04:55] VITALS: BMI 35.1
--- NOTE | 2017-12-18 05:14 | ED PDOC ---
Arrival/HPI - General Chief Complaint: Male Genitourinary Time Seen by Provider: 12/18/17 04:58 Historian: Patient - History of Present Illness Narrative History of Present Illness (Text): 12/18/17 05:11 Nicolas Loco Jr is a 47 year old male, whose past medical history includes hypertension, substance abuse, kidney stones, angina, migraines, and anxiety, who presents to the Emergency department complaining of right flank pain. Patient states he woke up with sharp right flank pain tonight radiating to his abdomen. Patient notes symptoms are similar to previously episodes of kidney stones. Patient denies any fever, chills, chest pain, shortness of breath, nausea, vomiting, diarrhea, neck pain, headache, dizziness, or any other complaints. Symptom Onset: Gradual Symptom Course: Unchanged Activities at Onset: Light Context: Home Past Medical History - Provider Review Nursing Documentation Reviewed: Yes - Past History Past History: Non-Contributing - Infectious Disease Hx of Infectious Diseases: None - Past Medical History Past Medical History: Non-Contributing - Cardiac Hx Cardiac Disorders: Yes Hx Angina: Yes Hx Atrial Fibrillation: Yes Hx Hypertension: Yes - Pulmonary Hx Respiratory Disorders: No - Neurological Hx Migraine: Yes - HEENT Hx HEENT Disorder: No - Renal Hx Kidney Stones: Yes - Endocrine/Metabolic Hx Endocrine Disorders: No - Hematological/Oncological Hx Blood Disorders: No - Integumentary Hx Dermatological Disorder: No - Musculoskeletal/Rheumatological Hx Musculoskeletal Disorders: No - Gastrointestinal Hx Gastroesophageal Reflux: Yes - Genitourinary/Gynecological Hx Genitourinary Disorders: No - Psychiatric Hx Psychophysiologic Disorder: Yes Hx Anxiety: Yes Hx Depression: Yes Hx Substance Use: No - Surgical History Hx Cardiac Catheterization: Yes Other/Comment: cardaic cath - Anesthesia Hx Anesthesia: Yes Hx Anesthesia Reactions: No Hx Malignant Hyperthermia: No Family/Social History - Physician Review Nursing Documentation Reviewed: Yes Family/Social History: Unknown Family HX Smoking Status: Former Smoker Hx Alcohol Use: No Hx Substance Use: No Hx Substance Use Treatment: No Allergies/Home Meds Allergies/Adverse Reactions: Allergies ranitidine [From Zantac] Allergy (Verified 08/25/17 14:38) RASH quetiapine [From Seroquel] Adverse Reaction (Verified 08/25/17 14:38) URTICARIA Home Medications: Home Meds Medication Instructions Recorded Confirmed Gabapentin [Gralise] 300 mg PO DAILY 02/21/17 12/18/17 diaZEpam [Valium] 5 mg PO DAILY 02/21/17 12/18/17 Butalbital/Aspirin/Caffeine 1 each PO Q8H PRN 04/15/17 12/18/17 [[id number]-Jcsul 50-325-40] Cyclobenzaprine [Flexeril] 5 mg PO DAILY PRN 04/15/17 12/18/17 Nitroglycerin [Nitrotab] 0.4 mg SL PRN PRN 07/17/17 12/18/17 Ibuprofen [Motrin Tab] 800 mg PO Q6 PRN 08/25/17 12/18/17 Fluticasone Nasal [Flonase] 1 spray PAYAM DAILY 09/21/17 12/18/17 Meclizine HCl [Motion-Time] 25 mg PO DAILY PRN 09/21/17 12/18/17 Sertraline [Zoloft] 50 mg PO DAILY 12/18/17 12/18/17 Review of Systems - Physician Review All systems were reviewed & negative as marked: Yes - Review of Systems Constitutional: Normal. absent: Fevers Eyes: Normal ENT: Normal Respiratory: Normal. absent: SOB, Cough Cardiovascular: Normal. absent: Chest Pain Gastrointestinal: Normal. absent: Abdominal Pain, Diarrhea, Nausea, Vomiting Genitourinary Male: Normal. absent: Dysuria, Frequency, Hematuria Musculoskeletal: Back Pain (+right flank pain). absent: Neck Pain Skin: Normal. absent: Rash Neurological: Normal. absent: Headache, Dizziness Endocrine: Normal Hemo/Lymphatic: Normal Psychiatric: Normal Physical Exam Vital Signs Reviewed: Yes Vital Signs Temp Pulse Resp BP Pulse Ox 12/18/17 05:04 98 F 89 20 156/90 H 99 Temperature: Afebrile Blood Pressure: Normal Pulse: Regular Respiratory Rate: Normal Appearance: Positive for: Well-Appearing, Non-Toxic, Comfortable Pain Distress: None Mental Status: Positive for: Alert and Oriented X 3 - Systems Exam Head: Present: Atraumatic, Normocephalic Pupils: Present: PERRL Extroacular Muscles: Present: EOMI Conjunctiva: Present: Normal Mouth: Present: Moist Mucous Membranes Neck: Present: Normal Range of Motion. No: Meningeal Signs, MIDLINE TENDERNESS , Paraspinal Tenderness Respiratory/Chest: Present: Clear to Auscultation, Good Air Exchange. No: Respiratory Distress, Accessory Muscle Use Cardiovascular: Present: Regular Rate and Rhythm, Normal S1, S2. No: Murmurs Abdomen: No: Tenderness, Distention, Peritoneal Signs Back: Present: Normal Inspection. No: CVA Tenderness, Midline Tenderness, Paraspinal Tenderness Upper Extremity: Present: Normal Inspection. No: Cyanosis, Edema Lower Extremity: Present: Normal Inspection. No: Edema Neurological: Present: GCS=15, CN II-XII Intact, Speech Normal Skin: Present: Warm, Dry, Normal Color. No: Rashes Psychiatric: Present: Alert, Oriented x 3, Normal Insight, Normal Concentration Medical Decision Making ED Course and Treatment: 12/18/17 05:11 Impression: 47 year old male complaining of right flank pain today. Plan: -- Labs -- Urinalysis -- IV fluids -- Toradol -- Reassess and disposition Progress Notes: 12/18/17 07:00 Case endorsed to /pending CT Scan results/response to treatment/reassess /final disposition - Lab Interpretations Lab Results: 12/18/17 05:16 12/18/17 05:16 Lab Results 12/18/17 05:16: WBC 6.6, RBC 5.25, Hgb 15.6, Hct 44.0, MCV 83.8, MCH 29.7, MCHC 35.5, RDW 12.5, Plt Count 250, MPV 9.8 12/18/17 05:16: Sodium 143, Potassium Pending, Chloride 104, Carbon Dioxide 29, Anion Gap 15, BUN 20, Creatinine 1.1, Est GFR ( Amer) > 60, Est GFR (Non- Af Amer) > 60, Random Glucose 106, Calcium 9.5, Total Bilirubin 0.4, AST 48, ALT 75 H, Alkaline Phosphatase 132 H, Total Protein 7.5, Albumin 4.2, Globulin 3.4, Albumin/Globulin Ratio 1.2 - RAD Interpretation Radiology Orders: 12/18/17 05:24 ABD & PELVIS W/O PO OR IV CONT [CT] Stat - Medication Orders Current Medication Orders: Sodium Chloride (Sodium Chloride 0.9%) 1,000 mls @ 150 mls/hr IV .Q6H40M SAROJ Last Admin: 12/18/17 05:15 Dose: 150 mls/hr eMAR Start Stop Document 12/18/17 05:15 RD (Rec: 12/18/17 05:21 [facility] [id number] Intravenous Solution Start Date 12/18/17 Start Time 05:15 Discontinued Medications Ketorolac Tromethamine (Toradol) 30 mg IVP ONCE ONE Stop: 12/18/17 05:12 Last Admin: 12/18/17 05:25 Dose: 30 mg MAR Pain Assessment Document 12/18/17 05:25 RD (Rec: 12/18/17 05:25 RD [facility] [id number] Pain Reassessment Is this a pain reassessment? No IVP Administration Document 12/18/17 05:25 RD (Rec: 12/18/17 05:25 RD [facility] [id number] Charges for Administration # of IVP Administrations 1 Morphine Sulfate (Morphine) 4 mg IVP STAT STA Stop: 12/18/17 06:11 Morphine Sulfate (Morphine) 4 mg IVP STAT STA Stop: 12/18/17 06:31 Ondansetron HCl (Zofran Inj) 4 mg IVP STAT STA Stop: 12/18/17 06:12 Ondansetron HCl (Zofran Inj) 4 mg IVP ONCE ONE Stop: 12/18/17 06:31 - Scribe Statement The provider has reviewed the documentation as recorded by the Elian Mckee Provider Scribe Attestation: All medical record entries made by the Scribe were at my direction and personally dictated by me. I have reviewed the chart and agree that the record accurately reflects my personal performance of the history, physical exam, medical decision making, and the department course for this patient. I have also personally directed, reviewed, and agree with the discharge instructions and disposition. Disposition/Present on Arrival - Present on Arrival Any Indicators Present on Arrival: No History of DVT/PE: No History of Uncontrolled Diabetes: No Urinary Catheter: No History of Decub. Ulcer: No History Surgical Site Infection Following: None - Disposition Have Diagnosis and Disposition been Completed?: No Diagnosis: Flank pain Disposition Time: 07:00 Condition: STABLE Forms: [employer] (Slovak)
[2017-12-18] MEDS ORDERED: Sodium Chloride 0.9% 1,000 ML IV SCH (05:15)
[2017-12-18 05:36] LABS: HEMOGLOBIN 15.6 g/dL (14.0-18.0); MEAN CELL VOLUME 83.8 fl (80.0-105.0); MEAN CORPUSCULAR HEMOGLOBIN 29.7 pg (25.0-35.0); MEAN CORPUSCULAR HGB CONC 35.5 g/dl (31.0-37.0); MEAN PLATELET VOLUME 9.8 fl (7.0-11.0); RBC 5.25 10^6/uL (3.5-6.1); RED CELL DISTRIBUTION WIDTH 12.5 % (11.5-14.5); WHITE BLOOD COUNT 6.6 10^3/ul (4.5-11.0)
[2017-12-18 06:10] LABS: ALB/GLOB RATIO 1.2 (1.1-1.8); ALBUMIN 4.2 g/dL (3.0-4.8); ALT/SGPT 75 U/L (7-56); AST/SGOT 48 U/L (17-59); BLOOD UREA NITROGEN 20 mg/dL (7-21); CALCIUM 9.5 mg/dL (8.4-10.5); GFR AFRICAN-AMERICAN > 60; GFR NON-AFRICAN AMERICAN > 60
[2017-12-18] MEDS ORDERED: Morphine 4 mg/ml ISec IVP STA ×2 (06:10→06:30)
[2017-12-18 07:22] VITALS: TEMP 98
--- NOTE | 2017-12-18 07:35 | CT ---
EXAM: CT Abdomen and Pelvis Without Intravenous Contrast CLINICAL HISTORY: 47 years old, male; Pain; Abdominal pain; Flank; Right; Additional info: Right flank pain TECHNIQUE: Axial computed tomography images of the abdomen and pelvis without intravenous contrast. All CT scans at this facility use one or more dose reduction techniques, viz.: automated exposure control; ma/kV adjustment per patient size (including targeted exams where dose is matched to indication; i.e. head); or iterative reconstruction technique. 683 images are submitted. Axial images are submitted in soft tissue and lung windows. Coronal and sagittal reformatted images were created and reviewed. Axial reformatted images were created and reviewed. COMPARISON: CT - ABD PELVIS W/O PO OR IV CONT 2017-09-21 11:42 FINDINGS: Limitations: Absence of IV contrast decreases sensitivity for detecting vascular and visceral injury and abnormality. Lung bases: There is groundglass opacity to the lung bases with infiltration representing edema versus reactive airway disease. Correlation with clinical data is recommended if acute pneumonia is clinically suspected. Heart: Small pericardial effusion. ABDOMEN: Liver: Unremarkable. Gallbladder and bile ducts: Unremarkable. No ductal dilation. Pancreas: Unremarkable. No ductal dilation. Spleen: Left upper quadrant splenules. Adrenals: Unremarkable. No mass. Kidneys and ureters: Right asymmetric inflammatory change with mild right hydroureteronephrosis with a 2-3 mm right distal ureteral stone seen on image 177 series 3 representing acute obstructive uropathy. Bilateral perinephric scarring may be a sequela of infection, inflammation or aging. Stomach and bowel: Diverticulosis. Moderate to large amount of stool in the colon. No mucosal thickening. PELVIS: Appendix: No findings to suggest acute appendicitis. Bladder: Partially decompressed bladder with bladder wall thickening. Correlation with urinalysis is recommended only if clinical cystitis is suspected. Reproductive: Mild enlargement of prostate gland. ABDOMEN and PELVIS: Intraperitoneal space: Unremarkable. No free air. No significant fluid collection. Bones/joints: No acute fracture. No dislocation. Soft tissues: Bilateral gynecomastia. There is a fat-containing umbilical hernia. Vasculature: The aorta is normal in caliber and there are no louie-aortic collections. Lymph nodes: Shotty para-aortic lymph nodes. IMPRESSION: 1. Right asymmetric inflammatory change with mild right hydroureteronephrosis with a 2-3 mm right distal ureteral stone seen on image 177 series 3 representing acute obstructive uropathy. 2.There is groundglass opacity to the lung bases with infiltration representing edema versus reactive airway disease. Correlation with clinical data is recommended if acute pneumonia is clinically suspected. Correlation with internal medicine evaluation and further workup or followup as recommended by patient's clinical data.
--- NOTE | 2017-12-18 08:24 | ED PDOC ---
Physical Exam Vital Signs Reviewed: Yes Vital Signs Temp Pulse Resp BP Pulse Ox 12/18/17 07:21 98.0 F 98 H 20 156/101 H 97 12/18/17 05:04 98 F 89 20 156/90 H 99 Temperature: Afebrile Blood Pressure: Hypertensive Pulse: Regular Respiratory Rate: Normal Appearance: Positive for: Well-Appearing, Non-Toxic, Comfortable Pain Distress: None Mental Status: Positive for: Alert and Oriented X 3 - Systems Exam Head: Present: Atraumatic, Normocephalic Pupils: Present: PERRL Extroacular Muscles: Present: EOMI Conjunctiva: Present: Normal Mouth: Present: Moist Mucous Membranes Neck: Present: Normal Range of Motion Respiratory/Chest: Present: Clear to Auscultation, Good Air Exchange. No: Respiratory Distress, Accessory Muscle Use Cardiovascular: Present: Regular Rate and Rhythm, Normal S1, S2. No: Murmurs Abdomen: Present: Other (minimal rt flank discomfort w/ harder percussion ). No : Tenderness, Distention, Peritoneal Signs Back: Present: Normal Inspection Upper Extremity: Present: Normal Inspection. No: Cyanosis, Edema Lower Extremity: Present: Normal Inspection. No: Edema Neurological: Present: GCS=15, CN II-XII Intact, Speech Normal Skin: Present: Warm, Dry, Normal Color. No: Rashes Psychiatric: Present: Alert, Oriented x 3, Normal Insight, Normal Concentration Medical Decision Making ED Course and Treatment: 12/18/17 08:22 The patient is endorsed over to me by Dr. Montenegro. The patient is currently pain free and is awaiting discharge. The catscan results were shared and given , discharge instructions were given to the patient/ importance of urology f/u explained, pt verbalized and endorsed understanding . 12/18/17 09:12 Reassessment Condition: Re-examined, Improved - Lab Interpretations Lab Results: 12/18/17 05:16 12/18/17 05:16 Lab Results 12/18/17 08:20: Urine Color Yellow, Urine Appearance Clear, Urine pH 6.5, Ur Specific [place] 1.025, Urine Protein Trace H, Urine Glucose (UA) Negative, Urine Ketones Negative, Urine Blood Large H, Urine Nitrate Negative, Urine Bilirubin Negative, Urine Urobilinogen 1.0 H, Ur Leukocyte Esterase Negative, Urine RBC 2 - 5, Urine WBC 0 - 2, Ur Epithelial Cells 1 - 3, Calcium Oxalate Crystal Occ, Amorphous Sediment Few, Urine Bacteria Trace, Hyaline Casts 0 - 2 12/18/17 05:16: WBC 6.6, RBC 5.25, Hgb 15.6, Hct 44.0, MCV 83.8, MCH 29.7, MCHC 35.5, RDW 12.5, Plt Count 250, MPV 9.8 12/18/17 05:16: Sodium 143, Potassium 3.9, Chloride 104, Carbon Dioxide 29, Anion Gap 14, BUN 20, Creatinine 1.1, Est GFR ( Amer) > 60, Est GFR (Non- Af Amer) > 60, Random Glucose 106, Calcium 9.5, Total Bilirubin 0.4, AST 48, ALT 75 H, Alkaline Phosphatase 132 H, Total Protein 7.5, Albumin 4.2, Globulin 3.4, Albumin/Globulin Ratio 1.2 I have reviewed the lab results: Yes Interpretation: All labs normal - RAD Interpretation Radiology Orders: 12/18/17 05:24 ABD & PELVIS W/O PO OR IV CONT [CT] Stat Record Press Supervisor: Radiologist - Medication Orders Current Medication Orders: Sodium Chloride (Sodium Chloride 0.9%) 1,000 mls @ 150 mls/hr IV .[id number] SAROJ Last Admin: 12/18/17 05:15 Dose: 150 mls/hr eMAR Start Stop Document 12/18/17 05:15 RD (Rec: 12/18/17 05:21 [id number] Intravenous Solution Start Date 12/18/17 Start Time 05:15 Discontinued Medications Ketorolac Tromethamine (Toradol) 30 mg IVP ONCE ONE Stop: 12/18/17 05:12 Last Admin: 12/18/17 05:25 Dose: 30 mg MAR Pain Assessment Document 12/18/17 05:25 RD (Rec: 12/18/17 05:25 [facility] [id number] Pain Reassessment Is this a pain reassessment? No IVP Administration Document 12/18/17 05:25 RD (Rec: 12/18/17 05:25 [facility] [place] [id number][facility] Charges for Administration # of IVP Administrations 1 Morphine Sulfate (Morphine) 4 mg IVP STAT STA Stop: 06/03/18 06:31 Last Admin: 12/18/17 07:20 Dose: 4 mg MAR Pain Assessment Document 12/18/17 07:20 OCS (Rec: 12/18/17 07:21 OCS [id number]) Pain Reassessment Is this a pain reassessment? Yes Sleep Is patient sleeping during reassessment? No Presence of Pain Presence of Pain Yes Pain Scale Used Pain Scale Used Numeric Location Left, Right or Bilateral Right Pain Location Body Site Abdomen Back Description Description Constant Intensity of Pain at present 9 IVP Administration Document 12/18/17 07:20 OCS (Rec: 12/18/17 07:21 OCS [id number]) Charges for Administration # of IVP Administrations 1 Ondansetron HCl (Zofran Inj) 4 mg IVP ONCE ONE Stop: 12/18/17 06:31 Last Admin: 12/18/17 07:20 Dose: 4 mg IVP Administration Document 12/18/17 07:20 OCS (Rec: 12/18/17 07:20 OCS [id number]) Charges for Administration # of IVP Administrations 1 - Scribe Statement The provider has reviewed the documentation as recorded by the Elian Zuñiga Provider Scribe Attestation: All medical record entries made by the Jeremyibsuzie were at my direction and personally dictated by me. I have reviewed the chart and agree that the record accurately reflects my personal performance of the history, physical exam, medical decision making, and the department course for this patient. I have also personally directed, reviewed, and agree with the discharge instructions and disposition. Disposition/Present on Arrival - Present on Arrival Any Indicators Present on Arrival: No History of DVT/PE: No History of Uncontrolled Diabetes: No Urinary Catheter: No History of Decub. Ulcer: No History Surgical Site Infection Following: None - Disposition Have Diagnosis and Disposition been Completed?: Yes Diagnosis: Flank pain, Nephrolithiasis Disposition: HOME/ ROUTINE Disposition Time: 09:14 Patient Plan: Discharge Patient Problems: Current Active Problems Problem Status Onset Flank pain Acute Condition: STABLE Discharge Instructions (ExitCare): Kidney Stones (DC) Print Language: URUGUAYAN Additional Instructions: Drink plenty of water. Urinate through a coffee filter or a aurinary strainer in the event that villar can capture the stone for urologic analysis. Rerturn if you experience intractable pain/rigors/fever and or vomiting . l Prescriptions: Ciprofloxacin HCl [Cipro] 500 mg PO BID #20 tablet oxyCODONE/Acetaminophen [Percocet 5/325 mg Tab] 1 ea PO Q6 PRN #16 tab PRN Reason: Pain, Severe (8-10) Tamsulosin HCl [Flomax] 0.4 mg PO DAILY 14 Days #14 cap.er.24h Referrals: Blanca Miller [Primary Care Provider] - Follow up with primary Karlo Pedroza MD [Staff Provider] - Follow up with primary Forms: [employer] (German)
[2017-12-18 08:34] LABS: PH,URINE 6.5 (4.7-8.0); URINE BILIRUBIN NEGATIVE (NEGATIVE); URINE BLOOD LARGE (NEGATIVE); URINE GLUCOSE (UA) NEGATIVE (NEGATIVE); URINE LEUKOCYTE ESTERASE NEGATIVE Leu/uL (NEGATIVE); URINE PROTEIN TRACE mg/dL (<30 mg/dL)
[2017-12-18 08:44] LABS: URINE APPEARANCE CLEAR (CLEAR); URINE COLOR YELLOW (YELLOW)
[2017-12-18 08:46] LABS: URINE WBC 0 - 2 /hpf (0-6)
[2017-12-18 08:47] LABS: URINE AMORPHOUS SEDIMENT FEW; URINE BACTERIA TRACE (NEG); URINE CALCIUM OXALATE CRYSTALS OCC /hpf; URINE HYALINE CAST 0 - 2 /hpf
[2017-12-18 09:21] VITALS: O2SAT 98
[2017-12-18 10:24] VITALS: BP 141/84; PULSE 77; RESP 16
== END 2017-12-18 10:07 | disposition home or self-care (01) ==
LOC: ED 04:55
DX: R10.9 Unspecified abdominal pain (principal); I10 Essential (primary) hypertension; K21.9 Gastro-esophageal reflux disease without esophagitis; Z87.891 Personal history of nicotine dependence
CPT/HCPCS: 74176; 80053; 81001; 85027; 96374; 96375; 99284; J1885; J2270; J2405; J7030

== ENCOUNTER 2018-02-21 18:24 | Emergency (ER) | payer OTHER ==
[2018-02-21 18:24] VITALS: BMI 35.1
[2018-02-21 18:42] VITALS: O2SAT 98
[2018-02-21 19:53] LABS: BASO # 0.02 K/mm3 (0.0-2.0); BASO % 0.3 % (0.0-3.0); EOS # 0.2 (0.0-0.7); EOS % 2.6 % (1.5-5.0); GRAN # 5.52 (1.4-6.5); GRAN % 69.5 % (50.0-68.0); HEMOGLOBIN 16.3 g/dL (14.0-18.0); LYMPH # 1.7 (1.2-3.4); LYMPH % 20.9 % (22.0-35.0); MEAN CELL VOLUME 82.5 fl (80.0-105.0); MEAN CORPUSCULAR HEMOGLOBIN 29.4 pg (25.0-35.0); MEAN CORPUSCULAR HGB CONC 35.6 g/dl (31.0-37.0); MEAN PLATELET VOLUME 9.8 fl (7.0-11.0); MONO # 0.5 (0.1-0.6); MONO % 6.7 % (1.0-6.0); RBC 5.55 10^6/uL (3.5-6.1); RED CELL DISTRIBUTION WIDTH 12.6 % (11.5-14.5); WHITE BLOOD COUNT 7.9 10^3/ul (4.5-11.0)
--- NOTE | 2018-02-21 19:54 | ED PDOC ---
Arrival/HPI - General Chief Complaint: Shortness Of Breath Time Seen by Provider: 02/21/18 18:32 Historian: Patient - History of Present Illness Narrative History of Present Illness (Text): 02/21/18 19:30 A 47 year old male, whose past medical history includes hypertension, substance abuse, kidney stones, angina, and sleep apnea, presents to the emergency department complaining of chronic intermittent episodes of shortness of breath that mostly occurs at night or early mornings. Patient reports having seen his PMD for symptom and has been told it is associated with his sleep apnea. Patient was prescribed C-Pap to be used for his sleep. However, patient states C -Pap causes him to experiencing suffocating sensation and eventually removes it. Patient notes noticing shortness of breath has been occurring during the day for the past month, is not related to exertion, occurs at rest mostly. He explains he is concerned that he may be developing asthma, which he mentions never having any history of asthma as a child. Patient denies any fever, cough, chest pain, palpitations, abdominal pain, nausea, vomiting, back pain, leg pain/ swelling, diaphoresis, or any other complaints at this time. Also, patient denies any recent travel, recent surgeries/hospital admissions. Patient is a former smoker. Patient's past medical records have been reviewed, revealing patient has been seen here in the ER multiple times for chest pain. Mentions having cardiac catheterization performed 2014, which resulted in being normal. PMD : Angeal Cardio : Elizabeth Tompkins Past Medical History - Provider Review Nursing Documentation Reviewed: Yes - Past History Past History: Non-Contributing - Infectious Disease Hx of Infectious Diseases: None - Past Medical History Past Medical History: Non-Contributing - Cardiac Hx Cardiac Disorders: Yes Hx Angina: Yes Hx Atrial Fibrillation: Yes Hx Hypertension: Yes - Pulmonary Hx Respiratory Disorders: No - Neurological Hx Neurological Disorder: Yes Hx Migraine: Yes - HEENT Hx HEENT Disorder: No - Renal Hx Renal Disorder: Yes Hx Kidney Stones: Yes - Endocrine/Metabolic Hx Endocrine Disorders: No - Hematological/Oncological Hx Blood Disorders: No - Integumentary Hx Dermatological Disorder: No - Musculoskeletal/Rheumatological Hx Musculoskeletal Disorders: No - Gastrointestinal Hx Gastrointestinal Disorders: Yes Hx Gastroesophageal Reflux: Yes - Genitourinary/Gynecological Hx Genitourinary Disorders: No - Psychiatric Hx Psychophysiologic Disorder: Yes Hx Anxiety: Yes Hx Depression: Yes Hx Substance Use: No - Surgical History Hx Cardiac Catheterization: Yes Other/Comment: cardaic cath - Anesthesia Hx Anesthesia: Yes Hx Anesthesia Reactions: No Hx Malignant Hyperthermia: No Family/Social History - Physician Review Nursing Documentation Reviewed: Yes Family/Social History: No Known Family HX Smoking Status: Former Smoker Hx Alcohol Use: No Hx Substance Use: No Hx Substance Use Treatment: No Allergies/Home Meds Allergies/Adverse Reactions: Allergies ranitidine [From Zantac] Allergy (Verified 02/21/18 18:52) RASH quetiapine [From Seroquel] Adverse Reaction (Verified 02/21/18 18:52) URTICARIA Home Medications: Home Meds Medication Instructions Recorded Confirmed Gabapentin [Gralise] 300 mg PO DAILY 02/21/17 12/18/17 diaZEpam [Valium] 5 mg PO DAILY 02/21/17 12/18/17 Butalbital/Aspirin/Caffeine 1 each PO Q8H PRN 04/15/17 12/18/17 [Hlzsne-Abxiwbu-Wymdu 50-325-40] Cyclobenzaprine [Flexeril] 5 mg PO DAILY PRN 04/15/17 12/18/17 Nitroglycerin [Nitrotab] 0.4 mg SL PRN PRN 07/17/17 12/18/17 Ibuprofen [Motrin Tab] 800 mg PO Q6 PRN 08/25/17 12/18/17 Fluticasone Nasal [Flonase] 1 spray PAYAM DAILY 09/21/17 12/18/17 Meclizine HCl [Motion-Time] 25 mg PO DAILY PRN 09/21/17 12/18/17 Sertraline [Zoloft] 50 mg PO DAILY 12/18/17 12/18/17 Review of Systems - Physician Review All systems were reviewed & negative as marked: Yes - Review of Systems Constitutional: absent: Fevers Respiratory: SOB (chronic). absent: Cough Cardiovascular: absent: Chest Pain, Palpitations Gastrointestinal: absent: Abdominal Pain, Nausea, Vomiting Musculoskeletal: absent: Back Pain Endocrine: absent: Diaphoresis Physical Exam Vital Signs Reviewed: Yes Vital Signs Temp Pulse Resp BP Pulse Ox 02/21/18 18:44 19 02/21/18 18:41 97.6 F 79 18 149/98 H 98 Temperature: Afebrile Blood Pressure: Normal Pulse: Regular Respiratory Rate: Normal Appearance: Positive for: Well-Appearing, Non-Toxic, Comfortable Pain Distress: None Mental Status: Positive for: Alert and Oriented X 3 - Systems Exam Head: Present: Atraumatic, Normocephalic Pupils: Present: PERRL Extroacular Muscles: Present: EOMI Conjunctiva: Present: Normal Mouth: Present: Moist Mucous Membranes Neck: Present: Normal Range of Motion Respiratory/Chest: Present: Clear to Auscultation, Good Air Exchange. No: Respiratory Distress, Accessory Muscle Use Cardiovascular: Present: Regular Rate and Rhythm, Normal S1, S2. No: Murmurs Abdomen: No: Tenderness, Distention, Peritoneal Signs Back: Present: Normal Inspection Upper Extremity: Present: Normal Inspection. No: Cyanosis, Edema Lower Extremity: Present: Normal Inspection. No: Edema Neurological: Present: GCS=15, CN II-XII Intact, Speech Normal Skin: Present: Warm, Dry, Normal Color. No: Rashes Psychiatric: Present: Alert, Oriented x 3, Normal Insight, Normal Concentration Medical Decision Making ED Course and Treatment: 02/21/18 19:35 Previous medical records reviewed, patient seen on 11/23/2017, patient was evaluated for chest pain. EKG showed NSR, Chest X-ray displayed no active disease, and patient had negative Troponin. Patient later left against medical advice after refusing 2nd Troponin. Impression: 47 year old male with shortness of breath. No acute findings on physical examination, unlikely ACS, likely anxiety, concern for asthma. Plan: -- EKG -- Chest X-ray -- Labs -- Reassess and disposition Prior Visits: Notes and results from previous visits were reviewed. Patient was last seen in the emergency department on 12/18/2017 for right flank pain. Progress Notes: EKG : NSR at 73 bpm, no acute ST changes, as read by BOONE Labs reviewed : trop (-), BNP (-) 02/21/18 19:36 On reevaluation, patient reports improvement of symptoms, denies any dizziness, headache, CP or SOB. On exam, patient remains awake alert and oriented 3 in no acute distress, speaking in full sentences, breathing is easy and unlabored. EKG and lab results d/w the patient. CXR pending. 02/21/18 21:00 CXR : NAD, as read by BOONE On second reevaluation, patient reports he is feeling well still without CP or SOB. On exam, patient resting comfortably, is smiling in good spirits, in no acute distress. XR results d/w the patient. Advised to follow up with primary care physician in 1-2 days without fail. Return to the emergency room at any time for any new or worsening symptoms. Patient states he fully agrees with and understands discharge instructions. States that he agrees with the plan and disposition. Verbalized and repeated discharge instructions and plan. I have given the patient opportunity to ask any additional questions. - Lab Interpretations Lab Results: 02/21/18 19:35 02/21/18 19:35 Lab Results 02/21/18 19:35: Sodium 142, Potassium 3.8, Chloride 102, Carbon Dioxide 29, Anion Gap 15, BUN 12, Creatinine 0.9, Est GFR ( Amer) > 60, Est GFR (Non- Af Amer) > 60, Random Glucose 91, Calcium 9.5, Magnesium 1.9, Total Bilirubin 0.6, AST 53, ALT 105 H, Alkaline Phosphatase 146 H, Lactate Dehydrogenase 498, Total Creatine Kinase 84, Troponin I < 0.01, NT-Pro-B Natriuret Pep 56, Total Protein 8.5 H, Albumin 4.7, Globulin 3.9, Albumin/Globulin Ratio 1.2 02/21/18 19:35: WBC 7.9, RBC 5.55, Hgb 16.3, Hct 45.8, MCV 82.5, MCH 29.4, MCHC 35.6, RDW 12.6, Plt Count 260, MPV 9.8, Gran % 69.5 H, Lymph % (Auto) 20.9 L, Dukes % (Auto) 6.7 H, Eos % (Auto) 2.6, Baso % (Auto) 0.3, Gran # 5.52, Lymph # ( Auto) 1.7, Dukes # (Auto) 0.5, Eos # (Auto) 0.2, Baso # (Auto) 0.02 - RAD Interpretation Radiology Orders: 02/21/18 19:23 CHEST PORTABLE [RAD] Stat - PA / ORDER SELECTOR / Resident Statement MD/DO has reviewed & agrees with the documentation as recorded. - Scribe Statement The provider has reviewed the documentation as recorded by the Elian Brock Provider Scribe Attestation: All medical record entries made by the Scribe were at my direction and personally dictated by me. I have reviewed the chart and agree that the record accurately reflects my personal performance of the history, physical exam, medical decision making, and the department course for this patient. I have also personally directed, reviewed, and agree with the discharge instructions and disposition. Disposition/Present on Arrival - Present on Arrival Any Indicators Present on Arrival: No History of DVT/PE: No History of Uncontrolled Diabetes: No Urinary Catheter: No History of Decub. Ulcer: No History Surgical Site Infection Following: None - Disposition Have Diagnosis and Disposition been Completed?: Yes Diagnosis: SOB (shortness of breath) Disposition: HOME/ ROUTINE Disposition Time: 21:30 Patient Plan: Discharge Patient Problems: Current Active Problems Problem Status Onset SOB (shortness of breath) Acute Condition: STABLE Discharge Instructions (ExitCare): Shortness of Breath (Dyspnea) (DC) Additional Instructions: Thank you for letting us take care of you today. You were treated for shortness of breath. The emergency medical care you received today was directed at your acute symptoms. Return to the Emergency Department if your symptoms worsen, do not improve, or if you have any other problems. Please contact your doctor in 2 days for re-evaluation and follow up. Bring any paperwork you were given at discharge with you along with any medications you are taking to your follow up visit. Our treatment cannot replace ongoing medical care by a primary care provider (PCP) outside of the emergency department. Thank you for allowing the [facility] team to be part of your care today. If you had an X-Ray : A Radiologist will review the ED reading if any change in treatment is needed we will contact you. Forms: [employer] (Georgian)
[2018-02-21 20:20] LABS: ALB/GLOB RATIO 1.2 (1.1-1.8); ALBUMIN 4.7 g/dL (3.0-4.8); BLOOD UREA NITROGEN 12 mg/dL (7-21); CALCIUM 9.5 mg/dL (8.4-10.5); GFR AFRICAN-AMERICAN > 60; GFR NON-AFRICAN AMERICAN > 60
[2018-02-21 20:21] LABS: ALT/SGPT 105 U/L (7-56); AST/SGOT 53 U/L (17-59); B-TYPE NATRIURETIC PEPTIDE 56 pg/mL (0-450); TROPONIN I < 0.01 ng/mL
[2018-02-21 22:15] VITALS: BP 133/95; PULSE 69; RESP 18; TEMP 98.3
--- NOTE | 2018-02-22 09:04 | RAD ---
Date of service: 02/21/2018 HISTORY: SOB COMPARISON: No prior. FINDINGS: LUNGS: No active pulmonary disease. PLEURA: No significant pleural effusion identified, no pneumothorax apparent. CARDIOVASCULAR: Normal. OSSEOUS STRUCTURES: No significant abnormalities. VISUALIZED UPPER ABDOMEN: Normal. OTHER FINDINGS: None. IMPRESSION: No active disease.
--- NOTE | 2018-02-22 15:23 | CARD ---
APPROVED REPORT Date of service: 02/21/2018 EKG Measurement Heart [id number] <Conclusion> Normal sinus rhythm Septal infarct, age undetermined Abnormal ECG
== END 2018-02-21 22:00 | disposition home or self-care (01) ==
LOC: ED 18:24
DX: R06.02 Shortness of breath (principal); I10 Essential (primary) hypertension; I48.91 Unspecified atrial fibrillation; Z87.891 Personal history of nicotine dependence

== ENCOUNTER 2018-04-04 16:49 | Emergency (ER) | payer OTHER ==
[2018-04-04 17:39] VITALS: BMI 39.5
[2018-04-04 17:49] VITALS: RESP 20; TEMP 98.4
--- NOTE | 2018-04-04 17:57 | ED PDOC ---
Arrival/HPI - General Chief Complaint: Shortness Of Breath Time Seen by Provider: 04/04/18 17:05 Historian: Patient - History of Present Illness Narrative History of Present Illness (Text): 04/04/18 17:53 47yo male with h/o Depression, sleep apnea, anxiety bib EMS for complaint of SOB. Patient states he woke up felling SOB. States is the symptoms he have had before when he had problem with sleep apnea. States his C-pap machine was taken away, because he wasn't using it often. States he currently feels better. Also thinks that the SOB is secondary to the recent anxiolytic he started 8days ago. Denies chest pain, diaphoresis, calf pain, nausea, vomiting, drooling, cough, recent travel/surgery, any other complaint. Past Medical History - Provider Review Nursing Documentation Reviewed: Yes - Past History Past History: Non-Contributing - Infectious Disease Hx of Infectious Diseases: None - Past Medical History Past Medical History: Non-Contributing - Cardiac Hx Cardiac Disorders: Yes Hx Angina: Yes Hx Atrial Fibrillation: Yes Hx Hypertension: Yes - Pulmonary Hx Respiratory Disorders: No - Neurological Hx Neurological Disorder: Yes Hx Migraine: Yes - HEENT Hx HEENT Disorder: No - Renal Hx Renal Disorder: Yes Hx Kidney Stones: Yes - Endocrine/Metabolic Hx Endocrine Disorders: No - Hematological/Oncological Hx Blood Disorders: No - Integumentary Hx Dermatological Disorder: No - Musculoskeletal/Rheumatological Hx Musculoskeletal Disorders: No - Gastrointestinal Hx Gastrointestinal Disorders: Yes Hx Gastroesophageal Reflux: Yes - Genitourinary/Gynecological Hx Genitourinary Disorders: No - Psychiatric Hx Psychophysiologic Disorder: Yes Hx Anxiety: Yes Hx Depression: Yes Hx Substance Use: No - Surgical History Hx Cardiac Catheterization: Yes Other/Comment: cardaic cath - Anesthesia Hx Anesthesia: Yes Hx Anesthesia Reactions: No Hx Malignant Hyperthermia: No Family/Social History - Physician Review Nursing Documentation Reviewed: Yes Family/Social History: Unknown Family HX Smoking Status: Former Smoker Hx Alcohol Use: No Hx Substance Use: No Hx Substance Use Treatment: No Allergies/Home Meds Allergies/Adverse Reactions: Allergies ranitidine [From Zantac] Allergy (Verified 04/04/18 17:47) RASH quetiapine [From Seroquel] Adverse Reaction (Verified 04/04/18 17:47) URTICARIA Home Medications: Home Meds Medication Instructions Recorded Confirmed Gabapentin [Gralise] 300 mg PO DAILY 02/21/17 12/18/17 diaZEpam [Valium] 5 mg PO DAILY 02/21/17 12/18/17 Butalbital/Aspirin/Caffeine 1 each PO Q8H PRN 04/15/17 12/18/17 [[id number] 50-325-40] Cyclobenzaprine [Flexeril] 5 mg PO DAILY PRN 04/15/17 12/18/17 Nitroglycerin [Nitrotab] 0.4 mg SL PRN PRN 07/17/17 12/18/17 Ibuprofen [Motrin Tab] 800 mg PO Q6 PRN 08/25/17 12/18/17 Fluticasone Nasal [Flonase] 1 spray PAYAM DAILY 09/21/17 12/18/17 Meclizine HCl [Motion-Time] 25 mg PO DAILY PRN 09/21/17 12/18/17 Sertraline [Zoloft] 50 mg PO DAILY 12/18/17 12/18/17 Review of Systems - Physician Review All systems were reviewed & negative as marked: Yes - Review of Systems Constitutional: Normal Eyes: Normal ENT: Normal Respiratory: SOB Cardiovascular: Normal Gastrointestinal: Normal Genitourinary Male: Normal Musculoskeletal: Normal Skin: Normal Neurological: Normal Endocrine: Normal Hemo/Lymphatic: Normal Psychiatric: Normal Physical Exam Vital Signs Reviewed: Yes Vital Signs Temp Pulse Resp BP Pulse Ox 04/04/18 17:15 98.4 F 72 20 123/83 97 Temperature: Afebrile Blood Pressure: Normal Pulse: Regular Respiratory Rate: Normal Appearance: Positive for: Well-Appearing, Non-Toxic, Comfortable Pain Distress: None Mental Status: Positive for: Alert and Oriented X 3 - Systems Exam Head: Present: Atraumatic, Normocephalic Pupils: Present: PERRL Extroacular Muscles: Present: EOMI Conjunctiva: Present: Normal Mouth: Present: Moist Mucous Membranes Neck: Present: Normal Range of Motion Respiratory/Chest: Present: Clear to Auscultation, Good Air Exchange. No: Respiratory Distress, Accessory Muscle Use, Wheezes, Decreased Breath Sounds, Rales, Retracting, Rhonchi Cardiovascular: Present: Regular Rate and Rhythm, Normal S1, S2. No: Murmurs Abdomen: No: Tenderness, Distention, Peritoneal Signs Back: Present: Normal Inspection Upper Extremity: Present: Normal Inspection. No: Cyanosis, Edema Lower Extremity: Present: Normal Inspection. No: Edema Neurological: Present: GCS=15, CN II-XII Intact, Speech Normal Skin: Present: Warm, Dry, Normal Color. No: Rashes Psychiatric: Present: Alert, Oriented x 3, Normal Insight, Normal Concentration Medical Decision Making ED Course and Treatment: 04/04/18 18:46 47yo male who present with compliant of SOB. He was not in any distress in ED. Notes that his symptoms improved. He was hemodynamically stable. EKG NSR @85bpm Lab was reviewed and unremarkable. Pt's PECARN score was zero. CXR NAD All result was DW the pt and he was referred to his PMD. Pt likely had anxiety attack. He is on a new anxiolytic and was advised to f/u with his PMD. - Lab Interpretations Lab Results: 04/04/18 18:27 04/04/18 18:27 Lab Results 04/04/18 18:27: Sodium 139, Chloride 103, Potassium 4.2, Carbon Dioxide 28, Anion Gap 13, BUN 9, Creatinine 0.9, Est GFR ( Amer) > 60, Est GFR (Non- Af Amer) > 60, Random Glucose 90, Calcium 8.8, Magnesium 2.2, Total Bilirubin 0.5, AST 39, ALT 73 H, Alkaline Phosphatase 119, Lactate Dehydrogenase 440, Total Creatine Kinase 69, Troponin I Pending, Total Protein 7.5, Albumin 4.1, Globulin 3.4, Albumin/Globulin Ratio 1.2 04/04/18 18:27: pO2 34, VBG pH 7.36, VBG pCO2 54.0, VBG HCO3 30.5 H, VBG Total CO2 32.2 H, VBG O2 Sat (Calc) 61.8, VBG Base Excess 3.7 H, VBG Potassium 4.2, Sodium 137.0, Chloride 104.0, Glucose 89, Lactate 0.8, FiO2 21.0, Venous Blood Potassium 4.2 04/04/18 18:27: WBC 7.5, RBC 5.33, Hgb 15.8, Hct 44.6, MCV 83.7, MCH 29.6, MCHC 35.4, RDW 12.6, Plt Count 245, MPV 9.5, Gran % 69.3 H, Lymph % (Auto) 19.1 L, Braxton % (Auto) 8.7 H, Eos % (Auto) 2.5, Baso % (Auto) 0.4, Gran # 5.18, Lymph # ( Auto) 1.4, Braxton # (Auto) 0.7 H, Eos # (Auto) 0.2, Baso # (Auto) 0.03 04/04/18 18:27: PT 11.9, INR 1.04, APTT 27.6, D-Dimer, Quantitative < 200 - RAD Interpretation Radiology Orders: 04/04/18 17:41 CHEST PORTABLE [RAD] Stat Disposition/Present on Arrival - Present on Arrival Any Indicators Present on Arrival: No History of DVT/PE: No History of Uncontrolled Diabetes: No Urinary Catheter: No History of Decub. Ulcer: No History Surgical Site Infection Following: None - Disposition Have Diagnosis and Disposition been Completed?: Yes Diagnosis: SOB (shortness of breath) Disposition: HOME/ ROUTINE Disposition Time: 18:50 Patient Plan: Discharge Condition: STABLE Discharge Instructions (ExitCare): Shortness of Breath (Dyspnea) (DC) Additional Instructions: Follow up with your Doctor Return to ED for any new or worsening symptoms Referrals: Blanca Miller [Primary Care Provider] - Follow up with primary Forms: [employer] ([place]ian)
[2018-04-04 18:31] LABS: VENOUS BLOOD GAS BASE EXCESS 3.7 mmol/L (0.0-2.0); VENOUS BLOOD GAS PO2 34 mm/Hg (30-55); VENOUS BLOOD PH 7.36 (7.32-7.43)
--- NOTE | 2018-04-04 18:34 | RAD ---
HISTORY: SOB COMPARISON: Chest x-ray performed 02/21/18 TECHNIQUE: Chest, one view. FINDINGS: Examination limited by habitus. LUNGS: No focal consolidation. Please note that chest x-ray has limited sensitivity for the detection of pulmonary masses. PLEURA: No significant pleural effusion identified. No definite pneumothorax . CARDIOVASCULAR: Heart size appears borderline enlarged. OSSEOUS STRUCTURES: Degenerative changes. VISUALIZED UPPER ABDOMEN: Unremarkable. OTHER FINDINGS: None. IMPRESSION: No focal consolidation, significant pleural effusion, or definite pneumothorax identified. Borderline enlarged cardiac silhouette.
[2018-04-04 18:35] LABS: BASO # 0.03 K/mm3 (0.0-2.0); BASO % 0.4 % (0.0-3.0); EOS # 0.2 (0.0-0.7); EOS % 2.5 % (1.5-5.0); GRAN # 5.18 (1.4-6.5); GRAN % 69.3 % (50.0-68.0); HEMOGLOBIN 15.8 g/dL (14.0-18.0); LYMPH # 1.4 (1.2-3.4); LYMPH % 19.1 % (22.0-35.0); MEAN CELL VOLUME 83.7 fl (80.0-105.0); MEAN CORPUSCULAR HEMOGLOBIN 29.6 pg (25.0-35.0); MEAN CORPUSCULAR HGB CONC 35.4 g/dl (31.0-37.0); MEAN PLATELET VOLUME 9.5 fl (7.0-11.0); MONO # 0.7 (0.1-0.6); MONO % 8.7 % (1.0-6.0); RBC 5.33 10^6/uL (3.5-6.1); RED CELL DISTRIBUTION WIDTH 12.6 % (11.5-14.5); WHITE BLOOD COUNT 7.5 10^3/ul (4.5-11.0)
[2018-04-04 18:43] LABS: ALB/GLOB RATIO 1.2 (1.1-1.8); ALBUMIN 4.1 g/dL (3.0-4.8); ALT/SGPT 73 U/L (7-56); AST/SGOT 39 U/L (17-59); BLOOD UREA NITROGEN 9 mg/dL (7-21); CALCIUM 8.8 mg/dL (8.4-10.5); GFR NON-AFRICAN AMERICAN > 60; INR 1.04; PARTIAL THROMBOPLASTIN TIME 27.6 Seconds (25.1-36.5); PROTHROMBIN TIME 11.9 SECONDS (9.4-12.5)
[2018-04-04 18:44] LABS: D DIMER < 200 ng/mlDDU (0-243)
[2018-04-04 18:55] LABS: TROPONIN I < 0.01 ng/mL
[2018-04-04 19:17] VITALS: BP 134/89; PULSE 66; O2SAT 96
--- NOTE | 2018-04-05 21:13 | CARD ---
APPROVED REPORT Date of service: 04/04/2018 EKG Measurement Heart [id number] <Conclusion> Normal sinus rhythm Normal ECG
== END 2018-04-04 19:20 | disposition home or self-care (01) ==
LOC: ED 16:49
DX: R06.02 Shortness of breath (principal); F32.9 Major depressive disorder, single episode, unspecified; F41.9 Anxiety disorder, unspecified; I10 Essential (primary) hypertension; I48.91 Unspecified atrial fibrillation; Z87.891 Personal history of nicotine dependence

== ENCOUNTER 2018-07-07 10:40 | Emergency (ER) | payer OTHER ==
[2018-07-07 10:40] VITALS: BMI 39.5
[2018-07-07 11:07] VITALS: TEMP 98
--- NOTE | 2018-07-07 11:15 | ED PDOC ---
Arrival/HPI - General Chief Complaint: Chest Pain Time Seen by Provider: 07/07/18 11:03 Historian: Patient - History of Present Illness Narrative History of Present Illness (Text): 07/07/18 11:15 A 47 year old male, whose past medical history includes stable angina chest pain (last cath in 2014 nml) and hypertension, presents to the emergency department complaining of chest pain for the past week. Patient reports associated left shoulder pain radiating down his arm and describes symptoms as "bruising" pain. He notes seeing his sample puller 3 weeks ago for a regular check up and did not note anything abnormal. Patient notes taking two sessions of Aspirin (8 pills) and nitrostat. He denies any leg swelling, orthopnea, or pnd. No hx of blood clots. Patient denies any trauma, fever, chills, shortness of breath, diarrhea, nausea, vomiting, urinary symptoms, back pain, neck pain, headache, dizziness, or any other complaints. PMD: Dr. Miller Digital Measurement Advisor: Praveen Tijerina Time/Duration: 1 week Symptom Onset: Gradual Symptom Course: Unchanged Activities at Onset: Light Context: Home Past Medical History - Provider Review Nursing Documentation Reviewed: Yes - Past History Past History: Non-Contributing - Infectious Disease Hx of Infectious Diseases: None - Past Medical History Past Medical History: Non-Contributing - Cardiac Hx Cardiac Disorders: Yes Hx Angina: Yes Hx Cardiac Arrhythmia: Yes Hx Hypertension: Yes - Pulmonary Hx Respiratory Disorders: No - Neurological Hx Neurological Disorder: Yes Hx Migraine: Yes - HEENT Hx HEENT Disorder: No - Renal Hx Renal Disorder: Yes Hx Kidney Stones: Yes - Endocrine/Metabolic Hx Endocrine Disorders: No - Hematological/Oncological Hx Blood Disorders: No - Integumentary Hx Dermatological Disorder: No - Musculoskeletal/Rheumatological Hx Musculoskeletal Disorders: Yes Hx Back Pain: Yes - Gastrointestinal Hx Gastrointestinal Disorders: Yes Hx Gastroesophageal Reflux: Yes - Genitourinary/Gynecological Hx Genitourinary Disorders: No - Psychiatric Hx Psychophysiologic Disorder: Yes Hx Anxiety: Yes Hx Depression: Yes Hx Substance Use: No - Surgical History Hx Cardiac Catheterization: Yes - Anesthesia Hx Anesthesia: Yes Hx Anesthesia Reactions: No Hx Malignant Hyperthermia: No Family/Social History - Physician Review Nursing Documentation Reviewed: Yes Family/Social History: No Known Family HX Smoking Status: Former Smoker Hx Alcohol Use: No Hx Substance Use: No Hx Substance Use Treatment: No Allergies/Home Meds Allergies/Adverse Reactions: Allergies ranitidine [From Zantac] Allergy (Verified 07/07/18 10:58) RASH quetiapine [From Seroquel] Adverse Reaction (Verified 07/07/18 10:58) URTICARIA Home Medications: Home Meds Medication Instructions Recorded Confirmed Gabapentin [Gralise] 300 mg PO DAILY 02/21/17 07/07/18 diaZEpam [Valium] 5 mg PO HS 02/21/17 07/07/18 Butalbital/Aspirin/Caffeine 1 each PO Q8H PRN 04/15/17 07/07/18 [[id number]-[id number] 50-325-40] Cyclobenzaprine [Flexeril] 5 mg PO DAILY PRN 04/15/17 07/07/18 Nitroglycerin [Nitrotab] 0.4 mg SL PRN PRN 07/17/17 07/07/18 Fluticasone Nasal [Flonase] 1 spray PAYAM DAILY 09/21/17 07/07/18 Diltiazem HCl [Cartia Xt] 240 mg PO DAILY 07/07/18 07/07/18 Escitalopram [Lexapro] 5 mg PO DAILY 07/07/18 07/07/18 Losartan Potassium 25 mg PO HS 07/07/18 07/07/18 diaZEpam [Valium] 2 mg PO DAILY 07/07/18 07/07/18 Review of Systems - Physician Review All systems were reviewed & negative as marked: Yes - Review of Systems Constitutional: absent: Fevers, Other (chills) Eyes: absent: Vision Changes, Photophobia, Eye Pain ENT: absent: Hearing Changes, Tinnitus, TMJ Pain, Voice Changes Respiratory: absent: SOB Cardiovascular: Chest Pain (radiating down left arm). absent: Palpitations, Edema, Calf Pain Gastrointestinal: absent: Abdominal Pain, Stool Changes, Constipation, Diarrhea, Nausea, Vomiting Genitourinary Male: absent: Dysuria, Frequency, Hematuria, Urinary Output Changes Musculoskeletal: absent: Arthralgias, Back Pain, Neck Pain, Joint Swelling Skin: absent: Rash, Pruritis, Skin Lesions, Laceration, Abscess Neurological: absent: Headache, Dizziness Endocrine: absent: Diaphoresis, Polyuria, Polydipsia Hemo/Lymphatic: absent: Adenopathy, Easy Bleeding Psychiatric: absent: Anxiety, Depression Physical Exam Vital Signs Reviewed: Yes Vital Signs Temp Pulse Resp BP Pulse Ox 07/07/18 10:58 98.0 F 83 16 126/97 H 95 Temperature: Afebrile Blood Pressure: Normal Pulse: Regular Respiratory Rate: Normal Appearance: Positive for: Well-Appearing, Non-Toxic - Systems Exam Head: Present: Atraumatic, Normocephalic Pupils: Present: PERRL Extroacular Muscles: Present: EOMI Conjunctiva: Present: Normal Ears: Present: Normal, NORMAL TM. No: Erythema Mouth: Present: Moist Mucous Membranes. No: Dry Pharnyx: Present: Normal. No: ERYTHEMA, EXUDATE Neck: Present: Normal Range of Motion. No: Meningeal Signs Respiratory/Chest: Present: Clear to Auscultation, Good Air Exchange. No: Respiratory Distress, Accessory Muscle Use Cardiovascular: Present: Regular Rate and Rhythm, Normal S1, S2. No: Murmurs Abdomen: Present: Normal Bowel Sounds. No: Tenderness, Distention, Peritoneal Signs Back: Present: Normal Inspection. No: CVA Tenderness, Midline Tenderness, Paraspinal Tenderness Upper Extremity: Present: Normal Inspection. No: Cyanosis, Edema Lower Extremity: Present: Normal Inspection, NORMAL PULSES, Normal ROM, Tenderness, Swelling, Neurovascularly Intact, Capillary Refill < 2 s. No: Edema, CALF TENDERNESS, Cyanosis, Erythema, Deformity Neurological: Present: GCS=15, CN II-XII Intact, Speech Normal, Motor Func Grossly Intact, Normal Sensory Function, Normal Cerebellar Funct, Gait Normal Skin: Present: Warm, Dry, Normal Color. No: Rashes Psychiatric: Present: Alert, Oriented x 3, Normal Insight, Normal Concentration, Normal Affect, Normal Mood. No: Anxious, Agitated, Depressed Mood, Suicidal Ideation, Homicidal Ideation, Delusional, Hallucinations, Intoxicated, Lethargic Medical Decision Making ED Course and Treatment: 07/07/18 11:17 Impression: 47 year old male presenting to the emergency room for chest pain. He notes CP is intermittent L sided chest pain like previous stable anginal pain x1 week. Low pretest wells, PERC out. No orthopnea, pnd or leg swelling. No GI or complaints. No chest pain radiating to back. Likely recurrent angina. Pt notes taking ASA already. Plan: -- EKG -- Labs -- CBC -- Chest X-ray -- Reassess and disposition Prior Visits: Notes and results from previous visits were reviewed. Progress Notes: 07/07/18 11:18 Heart score Story: 1 EK Hx: 1 Age: 1 trop: pend Patient's heart score is 3 and has had a negative cardiac cath in 2014. Pt denies any current chest pain. Low risk heart score pending trop 07/07/18 13:09 trop negative XR negative labs otherwise largely unremarkable Heart score 3, however given hx of last stress echo, 2014 and cardiac cath reccomend obs and serial trops. Pt notes that he does not want to stay and seeks to sign out AMA. I endorsed possible / disability. He noted understanding he could / be disabled permanently and still wishes to leave. Given no SI, no HI no hallucinations, as well as clear decision making capacity and understanding pt signed AMA. Leaving Against Medical Advice (AMA): The patient is choosing to leave against medical advice. I have personally explained to the patient that choosing to do so may result in permanent bodily harm, diability, or . I have discussed at great length that without further evaluation and monitoring there may be unforeseen circumstances and/or deterioration causing permanent bodily harm or as a result of their choice. The patient is alert, oriented, and shows the mental capacity to make clear decisions regarding the patients health care at this time. The patient continues to wish to leave against medical advice. In light of the patients decision to leave against medical advice, follow-up has been arranged and the patient is aware of the importance to following up as instructed. The patient has been advised that they should return to the emergency room immediately if they change their mind at any time, or if their condition begins to change or worsen in any way. - RAD Interpretation Narrative RAD Interpretations (Text): 07/07/18 13:22 Procedure: Chest X-ray Time: 07/07/2018 12:59:08 Dictator: Bob Feliciano MD Impression: No active disease. Leather Stripping Machine Operator: Radiologist - EKG Interpretation EKG Interpretation (Text): 07/07/18 11:17 EKG: Ordered, reviewed, and independently interpreted the EKG. Rate : 82 BPM Rhythm : NSR Interpretation : No stemi. Interpreted by ED Physician: Yes - Scribe Statement The provider has reviewed the documentation as recorded by the Elian Meza All medical record entries made by the Jeremyibsuzie were at my direction and personally dictated by me. I have reviewed the chart and agree that the record accurately reflects my personal performance of the history, physical exam, medical decision making, and the department course for this patient. I have also personally directed, reviewed, and agree with the discharge instructions and disposition. Disposition/Present on Arrival - Present on Arrival Any Indicators Present on Arrival: No History of DVT/PE: No History of Uncontrolled Diabetes: No Urinary Catheter: No History of Decub. Ulcer: No History Surgical Site Infection Following: None - Disposition Have Diagnosis and Disposition been Completed?: Yes Diagnosis: Chest pain Disposition Time: 13:00 Condition: GOOD Discharge Instructions (ExitCare): Chest Pain (ED) Referrals: Blanca Miller [Primary Care Provider] - Follow up with primary Forms: [employer] ([place]vadorean)
[2018-07-07 12:01] LABS: BASO # 0.02 K/mm3 (0.0-2.0); BASO % 0.2 % (0.0-3.0); EOS # 0.1 (0.0-0.7); EOS % 0.9 % (1.5-5.0); GRAN # 6.01 (1.4-6.5); GRAN % 74.9 % (50.0-68.0); HEMOGLOBIN 15.6 g/dL (14.0-18.0); LYMPH # 1.4 (1.2-3.4); LYMPH % 17.3 % (22.0-35.0); MEAN CELL VOLUME 84.8 fl (80.0-105.0); MEAN CORPUSCULAR HGB CONC 35.4 g/dl (31.0-37.0); MEAN PLATELET VOLUME 9.7 fl (7.0-11.0); MONO # 0.5 (0.1-0.6); MONO % 6.7 % (1.0-6.0); RBC 5.2 10^6/uL (3.5-6.1); RED CELL DISTRIBUTION WIDTH 12.5 % (11.5-14.5)
[2018-07-07 12:13] LABS: ALB/GLOB RATIO 1.3 (1.1-1.8); ALBUMIN 4.3 g/dL (3.0-4.8); ALT/SGPT 68 U/L (7-56); AST/SGOT 34 U/L (17-59); BLOOD UREA NITROGEN 13 mg/dL (7-21); CALCIUM 9.4 mg/dL (8.4-10.5); GFR NON-AFRICAN AMERICAN > 60
[2018-07-07 12:24] LABS: TROPONIN I < 0.01 ng/mL
[2018-07-07 12:47] VITALS: BP 128/83
--- NOTE | 2018-07-07 13:02 | RAD ---
Date of service: 07/07/2018 HISTORY: cp COMPARISON: 04/04/2018 TECHNIQUE: Chest PA and lateral FINDINGS: LUNGS: No active pulmonary disease. PLEURA: No significant pleural effusion identified. No pneumothorax apparent. CARDIOVASCULAR: No aortic atherosclerotic calcification present. Normal cardiac size. No pulmonary vascular congestion. OSSEOUS STRUCTURES: No significant abnormalities. VISUALIZED UPPER ABDOMEN: Normal. OTHER FINDINGS: None. IMPRESSION: No active disease.
[2018-07-07 13:29] VITALS: PULSE 72; RESP 16; O2SAT 100
--- NOTE | 2018-07-07 15:06 | CARD ---
APPROVED REPORT Date of service: 07/07/2018 EKG Measurement Heart [id number] ID [id number] <Conclusion> Normal sinus rhythm PRWP QS in V 1. Possible septal VT, age unknown
== END 2018-07-07 13:27 | disposition left against medical advice (07) ==
LOC: ED 10:40
DX: R07.9 Chest pain, unspecified (principal); I10 Essential (primary) hypertension; K21.9 Gastro-esophageal reflux disease without esophagitis; Z87.891 Personal history of nicotine dependence

== ENCOUNTER 2018-07-14 05:10 | Observation (INO) | payer OTHER ==
[2018-07-14 05:13] VITALS: BMI 34.0
--- NOTE | 2018-07-14 05:33 | ED PDOC ---
Arrival/HPI - General Chief Complaint: Chest Pain Time Seen by Provider: 07/14/18 05:14 Historian: Patient - History of Present Illness Narrative History of Present Illness (Text): 07/14/18 05:31 Nicolas Loco Jr is a 47 year old male, whose past medical history includes hypertension, substance abuse, kidney stones, angina, migraines, and anxiety, who presents to the Emergency department complaining of chest pain. Patient states he has been experiencing mid-sternal chest pain since last night at times radiating down his left arm.Patient with recent visit to hospital ED but left against medical advice. Patient states he took 2 nitroglycerin tablets and Aspirin tonight,with some relief.Has a hx. of past cardiac cath (2014)which he claims was not of major significance,however, states he was told by his patcher helper of a possible small coronary blockage. Patient denies any fever, chills, shortness of breath, nausea, vomiting, diarrhea, urinary symptoms, back pain, neck pain, headache, dizziness, or any other complaints. Symptom Onset: Gradual Symptom Course: Unchanged Activities at Onset: Light Context: Home Past Medical History - Provider Review Nursing Documentation Reviewed: Yes - Past History Past History: Non-Contributing - Infectious Disease Hx of Infectious Diseases: None - Past Medical History Past Medical History: Non-Contributing - Cardiac Hx Cardiac Disorders: Yes Hx Angina: Yes Hx Cardiac Arrhythmia: Yes Hx Hypertension: Yes - Pulmonary Hx Respiratory Disorders: No - Neurological Hx Neurological Disorder: Yes Hx Migraine: Yes - HEENT Hx HEENT Disorder: No - Renal Hx Renal Disorder: Yes Hx Kidney Stones: Yes - Endocrine/Metabolic Hx Endocrine Disorders: No - Hematological/Oncological Hx Blood Disorders: No - Integumentary Hx Dermatological Disorder: No - Musculoskeletal/Rheumatological Hx Musculoskeletal Disorders: No - Gastrointestinal Hx Gastrointestinal Disorders: Yes Hx Gastroesophageal Reflux: Yes - Genitourinary/Gynecological Hx Genitourinary Disorders: No - Psychiatric Hx Psychophysiologic Disorder: Yes Hx Anxiety: Yes Hx Depression: Yes Hx Substance Use: No - Surgical History Hx Cardiac Catheterization: Yes - Anesthesia Hx Anesthesia: Yes Hx Anesthesia Reactions: No Hx Malignant Hyperthermia: No Family/Social History - Physician Review Nursing Documentation Reviewed: Yes Family/Social History: Unknown Family HX Smoking Status: Former Smoker Hx Alcohol Use: No Hx Substance Use: No Hx Substance Use Treatment: No Allergies/Home Meds Allergies/Adverse Reactions: Allergies ranitidine [From Zantac] Allergy (Verified 07/14/18 05:12) RASH quetiapine [From Seroquel] Adverse Reaction (Verified 07/14/18 05:12) URTICARIA Home Medications: Home Meds Medication Instructions Recorded Confirmed Gabapentin [Gralise] 300 mg PO DAILY 02/21/17 07/14/18 diaZEpam [Valium] 5 mg PO HS 02/21/17 07/14/18 Butalbital/Aspirin/Caffeine 1 each PO Q8H PRN 04/15/17 07/14/18 [Zzftvs-Ifztnul-Nfqjs 50-325-40] Cyclobenzaprine [Flexeril] 5 mg PO DAILY PRN 04/15/17 07/14/18 Nitroglycerin [Nitrotab] 0.4 mg SL PRN PRN 07/17/17 07/14/18 Fluticasone Nasal [Flonase] 1 spray PAYAM DAILY 09/21/17 07/14/18 Diltiazem HCl [Cartia Xt] 240 mg PO DAILY 07/07/18 07/14/18 Escitalopram [Lexapro] 5 mg PO DAILY 07/07/18 07/14/18 Losartan Potassium 25 mg PO HS 07/07/18 07/14/18 diaZEpam [Valium] 2 mg PO DAILY 07/07/18 07/14/18 Review of Systems - Physician Review All systems were reviewed & negative as marked: Yes - Review of Systems Constitutional: Normal. absent: Fevers Eyes: Normal ENT: Normal Respiratory: absent: SOB, Cough Cardiovascular: Chest Pain Gastrointestinal: absent: Abdominal Pain, Diarrhea, Nausea, Vomiting Genitourinary Male: Normal. absent: Dysuria, Frequency, Hematuria, Urinary Output Changes Musculoskeletal: Normal. absent: Back Pain, Neck Pain Skin: Normal. absent: Rash Neurological: Normal. absent: Headache, Dizziness Endocrine: Normal Hemo/Lymphatic: Normal Psychiatric: Normal Physical Exam Vital Signs Reviewed: Yes Temperature: Afebrile Blood Pressure: Normal Pulse: Regular Respiratory Rate: Normal Appearance: Positive for: Well-Appearing, Non-Toxic, Comfortable Pain Distress: None Mental Status: Positive for: Alert and Oriented X 3 - Systems Exam Head: Present: Atraumatic, Normocephalic Pupils: Present: PERRL Extroacular Muscles: Present: EOMI Conjunctiva: Present: Normal Mouth: Present: Moist Mucous Membranes Neck: Present: Normal Range of Motion. No: Meningeal Signs, MIDLINE TENDERNESS, Paraspinal Tenderness Respiratory/Chest: Present: Clear to Auscultation, Good Air Exchange. No: Respiratory Distress, Accessory Muscle Use Cardiovascular: Present: Regular Rate and Rhythm, Normal S1, S2. No: Murmurs Abdomen: No: Tenderness, Distention, Peritoneal Signs Back: Present: Normal Inspection Upper Extremity: Present: Normal Inspection. No: Cyanosis, Edema Lower Extremity: Present: Normal Inspection. No: Edema Neurological: Present: GCS=15, CN II-XII Intact, Speech Normal Skin: Present: Warm, Dry, Normal Color. No: Rashes Psychiatric: Present: Alert, Oriented x 3, Normal Insight, Normal Concentration Medical Decision Making ED Course and Treatment: 07/14/18 05:31 Impression: 47 year old male complaining of chest pain. Plan: -- EKG -- Chest X-ray -- Labs -- Reassess and disposition Prior Visits: Notes and results from previous visits were reviewed. Progress Notes: Reviewed EKG, NSR at [address]-segment elevations or depressions, no T-wave inversions, normal intervals. 07/14/18 06:20 Case was discussed with the spanish medical interpreter and house MD.Accepted to the hospitalist service. - RAD Interpretation Radiology Orders: 07/14/18 05:27 CHEST PORTABLE [RAD] Stat - EKG Interpretation Interpreted by ED Physician: Yes Type: 12 lead EKG - Scribe Statement The provider has reviewed the documentation as recorded by the Jeremyibsuzie Mckee Provider Scribe Attestation: All medical record entries made by the Scribsuzie were at my direction and personally dictated by me. I have reviewed the chart and agree that the record accurately reflects my personal performance of the history, physical exam, medical decision making, and the department course for this patient. I have also personally directed, reviewed, and agree with the discharge instructions and disposition. Disposition/Present on Arrival - Present on Arrival Any Indicators Present on Arrival: No History of DVT/PE: No History of Uncontrolled Diabetes: No Urinary Catheter: No History of Decub. Ulcer: No History Surgical Site Infection Following: None - Disposition Have Diagnosis and Disposition been Completed?: Yes Diagnosis: Chest pain Disposition: HOSPITALIZED Disposition Time: 06:27 Patient Problems: Current Active Problems Problem Status Onset Chest pain Acute Condition: STABLE
[2018-07-14 06:01] LABS: HEMOGLOBIN 15.6 g/dL (14.0-18.0); MEAN CELL VOLUME 85.4 fl (80.0-105.0); MEAN CORPUSCULAR HEMOGLOBIN 29.9 pg (25.0-35.0); MEAN PLATELET VOLUME 9.9 fl (7.0-11.0); RBC 5.22 10^6/uL (3.5-6.1); RED CELL DISTRIBUTION WIDTH 12.6 % (11.5-14.5); WHITE BLOOD COUNT 7.7 10^3/uL (4.5-11.0)
[2018-07-14 06:04] LABS: INR 1.02; PARTIAL THROMBOPLASTIN TIME 27.2 Seconds (25.1-36.5); PROTHROMBIN TIME 11.7 SECONDS (9.4-12.5)
[2018-07-14 06:20] LABS: TROPONIN I < 0.01 ng/mL
[2018-07-14 06:26] LABS: ALB/GLOB RATIO 1.2 (1.1-1.8); ALBUMIN 4.2 g/dL (3.0-4.8); ALT/SGPT 72 U/L (7-56); AST/SGOT 40 U/L (17-59); BLOOD UREA NITROGEN 12 mg/dL (7-21); CALCIUM 9.3 mg/dL (8.4-10.5); GFR NON-AFRICAN AMERICAN > 60
[2018-07-14] MEDS ORDERED: Nitroglycerin 0.2 mg/hr Top Patch TD PRN (07:01)
--- NOTE | 2018-07-14 07:09 | CP.PCM.HP ---
History of Present Illness - History of Present Illness History of Present Illness: Patient is a 46 year old male with past medical history of HTN, angina, anxiety, migraine presents to ED for left sided chest pain which began 2 weeks ago. Patient states the pain is burning in quality, radiates to his left arm and is a lso present at rest. Patient states hetook nitroglycerin and ASA with some relief in symptoms. Patient had recent visit last week for similar complaints but signd out AMA. Patient mentions having a heart cath at [facility] 3 years ago which did not show any blockages at that time. Denies diaphoresis, dizziness, N/V, sob, palpitations, abdominal pain, constipation, urinary symptoms or any other complaints at this time. Allergies: Seroquel, Rantidine Medical Hx: HTN, angina, anxiety, migraine, muscle spasms Medications: Nitroglycerin, Diazepam, gabapentin, ASA, cardizem, flexeril, losartan Surgical Hx: Denies Social Hx: Stopped smoking in 2014, denies alcohol, denies drug use Family Hx: Mother - DM; Father - Heart condition, DM Present on Admission - Present on Admission Any Indicators Present on Admission: No Past Patient History - Infectious Disease Hx of Infectious Diseases: None - Past Social History Smoking Status: Former Smoker - CARDIAC Hx Cardiac Disorders: Yes Hx Angina: Yes Hx Cardia Arrhythmia: Yes Hx Hypertension: Yes - PULMONARY Hx Respiratory Disorders: No - NEUROLOGICAL Hx Neurological Disorder: Yes Hx Migraine: Yes - HEENT Hx HEENT Problems: No - RENAL Hx Chronic Kidney Disease: Yes Hx Kidney Stones: Yes - ENDOCRINE/METABOLIC Hx Endocrine Disorders: No - HEMATOLOGICAL/ONCOLOGICAL Hx Blood Disorders: No - INTEGUMENTARY Hx Dermatological Problems: No - MUSCULOSKELETAL/RHEUMATOLOGICAL Hx Musculoskeletal Disorders: No - GASTROINTESTINAL Hx Gastrointestinal Disorders: Yes Hx Gastroesophageal Reflux: Yes - GENITOURINARY/GYNECOLOGICAL Hx Genitourinary Disorders: No - PSYCHIATRIC Hx Psychophysiologic Disorder: Yes Hx Anxiety: Yes Hx Depression: Yes Hx Substance Use: No - SURGICAL HISTORY Hx Cardiac Catheterization: Yes - ANESTHESIA Hx Anesthesia: Yes Hx Anesthesia Reactions: No Hx Malignant Hyperthermia: No Meds Allergies/Adverse Reactions: Allergies Allergy/AdvReac Type Severity Reaction Status Date / Time ranitidine [From Zantac] Allergy RASH Verified 07/14/18 05:12 quetiapine [From Seroquel] AdvReac URTICARIA Verified 07/14/18 05:12 Results - Vital Signs Recent Vital Signs: Last Vital Signs Temp 97.8 F 07/14/18 05:33 Pulse 73 07/14/18 05:33 Resp 18 07/14/18 05:33 BP 117/72 07/14/18 05:33 Pulse Ox 98 07/14/18 05:33 - Labs Result Diagrams: 07/14/18 05:21 07/14/18 05:21 Labs: Laboratory Results - last 24 hr 07/14/18 07/14/18 07/14/18 05:21 05:21 05:21 WBC 7.7 RBC 5.22 Hgb 15.6 Hct 44.6 MCV 85.4 MCH 29.9 MCHC 35.0 RDW 12.6 Plt Count 254 MPV 9.9 PT 11.7 INR 1.02 APTT 27.2 Sodium 138 Chloride 104 Carbon Dioxide 27 BUN 12 Creatinine 0.9 Est GFR ( Amer) > 60 Est GFR (Non-Af Amer) > 60 Random Glucose 107 Calcium 9.3 Total Bilirubin 0.5 AST 40 ALT 72 H Alkaline Phosphatase 129 H Lactate Dehydrogenase 443 Total Creatine Kinase 56 Troponin I < 0.01 Total Protein 7.6 Albumin 4.2 Globulin 3.4 Albumin/Globulin Ratio 1.2 Assessment & Plan - Assessment and Plan (Free Text) Assessment: 46 year old male with past medical history of HTN, angina, anxiety, migraine presents to ED for left sided chest pain with radiation to the left arm that began 2 weeks ago. Patient took nitroglycerin and ASA with some relief in symptoms. Plan: 1. Chest Pain r/o ACS, History of angina -Monitor on telemetry -EKG showing NSR, no acute changes or ST elevations -CXR showing no active disease, f/u official read -initial trop negative, trend additional 2x -F/U am labs -TSH, HgA1C, lipid panel -nitro PRN -Cardiology consulted, f/u recommendations 2. Transaminitis -ALT mildly elevated at 72; appears to be his baseline -hep panel pending -Avoid hepatotoxic agents -Continue to monitor 3. Hypertension-HX -Normatensive at this time -Will continue to monitor -continue home medications 4. Anxiety/Depression-chronic -continue home lexapro 5. Muscle spasms/peripheral neuropathy-chronic -hold flexeril -gabapentin 6. Migraines-chronic -continue home meds GI-Protonix DVT Prophylaxis-SCD
--- NOTE | 2018-07-14 09:55 | RAD ---
Date of service: 07/14/2018 HISTORY: chest pain COMPARISON: 07/07/2018 FINDINGS: LUNGS: No active pulmonary disease. PLEURA: No significant pleural effusion identified, no pneumothorax apparent. CARDIOVASCULAR: No aortic atherosclerotic calcification present. Normal cardiac size. No pulmonary vascular congestion. OSSEOUS STRUCTURES: No significant abnormalities. VISUALIZED UPPER ABDOMEN: Normal. OTHER FINDINGS: None. IMPRESSION: No active disease.
[2018-07-14] MEDS ORDERED: diltiaZEM 240 mg/24 Hours CD Cap PO SCH (10:00)
[2018-07-14 10:36] LABS: HDL CHOLESTEROL 42 mg/dL (29-60)
[2018-07-14] MEDS ORDERED: Nitroglycerin 2% Ointment Foilpak UD TOP PRN (10:38)
[2018-07-14 10:47] LABS: LDL CHOLESTEROL 99 mg/dL (0-129)
[2018-07-14 10:48] LABS: TROPONIN I < 0.01 ng/mL
[2018-07-14] MEDS ORDERED: Pneumococcal 23-Valent Vaccine IM ONE (14:06)
[2018-07-14] MEDS ORDERED: Influenza Vaccine 60 mcg/0.5 mL SYR (4YR UP) IM ONE (14:06)
[2018-07-14 16:39] LABS: HEPATITIS B SURFACE AG Negative (NEGATIVE)
[2018-07-14 16:44] LABS: HEPATITIS A IGM NEGATIVE (NEGATIVE); HEPATITIS B CORE AB NEGATIVE (NEGATIVE)
[2018-07-14 16:56] LABS: HEPATITIS C ANTIBODY NEGATIVE (NEGATIVE)
[2018-07-14 18:08] LABS: BARBITURATES, UR POSITIVE (NEGATIVE); BENZODIAZEPINES, UR POSITIVE (NEGATIVE); OPIATES, UR NEGATIVE (NEGATIVE); PHENCYCLIDINE, UR NEGATIVE (NEGATIVE)
[2018-07-14] MEDS ORDERED: diltiaZEM 240 mg/24 Hours CD Cap PO STA ×2 (18:28→18:29)
[2018-07-14] MEDS: Naproxen 275 mg Tab PO PRN (18:41)
--- NOTE | 2018-07-14 20:38 | CARD ---
APPROVED REPORT Date of service: 07/14/2018 EKG Measurement Heart [id number] <Conclusion> Normal sinus rhythm Normal ECG
--- NOTE | 2018-07-14 20:53 | CON ---
DATE: 07/14/2018 REASON FOR CONSULTATION: Cardiac evaluation, admitted with sharp pain in the chest as well as pain in the wrist and pain in the left heel. BRIEF CLINICAL HISTORY: This is a 47-year-old male with past medical history significant for ex-tobacco abuse, stopped 3 years taking and then restarted again; history of cardiac catheterization; nonobstructive coronary artery disease 3 years ago at [facility] by Dr. Praveen Tompkins; history of hypertension; history of diabetes; history of migraine; history of anxiety disorder; came to the [facility] with complaint of sharp chest pain, then chest pain started on the left wrist and then in the left heel, who came to the emergency room. Denies any chest pain on exertion. Denies any chest pain on walking. Denies any dyspnea on exertion. PAST MEDICAL HISTORY: Significant for hypertension, angina, anxiety disorder, migraine, muscle spasm, and questionable spinal stenosis. CURRENT MEDICATIONS: He is taking p.r.n. nitroglycerin, last unused probably a year ago; diazepam; gabapentin; aspirin; Cardizem; Flexeril; and losartan. PAST SURGICAL HISTORY: Nothing significant except as a childhood, the patient has a hernia surgery done. SOCIAL HISTORY: Used to smoke a pack a day, quit in 2014, but restarted again recently. Denies any history of alcohol abuse. Denies any history of substance abuse. PREVIOUS CARDIAC WORKUP: As follows; the patient had extensive cardiac workup by Dr. Praveen Tompkins at [facility] 2 years ago. Echo with stress test followed by cardiac catheterization. Cardiac catheterization revealed nonobstructive coronary artery disease, goes to follow with Dr. Praveen Tompkins every 6 weeks; recently did not go for more than 2 months. CURRENT MEDICATIONS: The patient is taking diazepam 2 mg daily, 5 mg diazepam at bedtime, nitroglycerin p.r.n. last time used 2-3 months, losartan 25 mg daily at bedtime, gabapentin 300 mg daily, Flonase 1 spray, Lexapro 5 mg daily, Cardizem 240 mg daily, Flexeril 5 mg daily, and combination of caffeine, aspirin, and butalbital 1 tablet every 8 hours p.r.n. REVIEW OF SYSTEMS: As per HPI. PHYSICAL EXAMINATION: VITAL SIGNS: Height of the patient is 5 feet 9 inches. Weight of the patient is 230 pounds. Body mass index 34 kg/m2. Temperature afebrile, heart rate 75, and blood pressure 132/95. HEENT: PERRLA. Extraocular muscles intact. NECK: Supple. No carotid bruits or thyromegaly. CHEST: Clear to auscultation. HEART: S1 and S2 regular. ABDOMEN: Soft. EXTREMITIES: Clubbing and cyanosis negative. LABORATORY DATA: EKG shows normal sinus rhythm, no acute ST-T changes noted. WBC 6.7, hemoglobin 15.6, hematocrit . Coagulation profile; INR within 1.02. Chemistry shows sodium 130, potassium 4, chloride 104, carbon dioxide 27, anion gap of 11, BUN 12, and creatinine 0.9. Troponin 0.01 x2 negative. TSH is 0.93. EKG shows normal sinus rhythm, no acute ST-T changes noted. IMPRESSION AND PLAN: This is a 47-year-old male with a past medical history significant for hypertension, migraine, obesity, history of cardiac catheterization [address] Praveen Tompkins at [facility], essentially normal coronary, history of stress test and echocardiogram at that time. Prior to test, admitted with atypical chest given the multiple risk factor of coronary artery disease, I suggest echocardiogram and a stress test. Echocardiogram will be done tomorrow. Stress test will be scheduled as an outpatient. We will also follow CPK, troponin. If the troponin remains flat , the patient can be discharged home tomorrow. I have scheduled his test as an outpatient. In between, we will get lipid profile and TSH. Thank you Dr. Ryan for providing us the opportunity in taking care of the patient, Nicolas Loco. Vin Kendrick MD cc: Vin Ryan MD
[2018-07-15 01:09] VITALS: O2SAT 94
[2018-07-15] MEDS: Naproxen 275 mg Tab PO PRN (01:49)
[2018-07-15] MEDS ORDERED: Pantoprazole 40 mg EC Tab PO SCH (06:00)
[2018-07-15 08:12] LABS: ALB/GLOB RATIO 1.3 (1.1-1.8); ALBUMIN 4.2 g/dL (3.0-4.8); ALT/SGPT 78 U/L (7-56); AST/SGOT 42 U/L (17-59); BLOOD UREA NITROGEN 12 mg/dL (7-21); CALCIUM 9.5 mg/dL (8.4-10.5); GFR NON-AFRICAN AMERICAN > 60
[2018-07-15 08:20] LABS: HEMOGLOBIN 15.8 g/dL (14.0-18.0); MEAN CELL VOLUME 85.4 fl (80.0-105.0); MEAN CORPUSCULAR HEMOGLOBIN 29.5 pg (25.0-35.0); MEAN CORPUSCULAR HGB CONC 34.5 g/dl (31.0-37.0); MEAN PLATELET VOLUME 9.8 fl (7.0-11.0); RBC 5.36 10^6/uL (3.5-6.1); RED CELL DISTRIBUTION WIDTH 12.6 % (11.5-14.5); WHITE BLOOD COUNT 7.2 10^3/uL (4.5-11.0)
--- NOTE | 2018-07-15 09:24 | CP.PCM.PN ---
Subjective - Date & Time of Evaluation Date of Evaluation: 07/15/18 Time of Evaluation: 06:40 - Subjective Subjective: Awake, alert, no distress, denies chest pain Reason for consultation and follow up: Cardiac evaluation of chest pain Seen and examined by me and Dr. Kendrick Objective - Vital Signs/Intake and Output Vital Signs (last 24 hours): Temp Pulse Resp BP Pulse Ox 98.0 F 65 20 112/70 94 L 07/15/18 06:00 07/15/18 06:00 07/15/18 06:00 07/15/18 06:00 07/15/18 06:00 Intake and Output: 07/15/18 07/15/18 06:59 18:59 Intake Total 420 Balance 420 - Medications Medications: Current Medications Aspirin (Aspirin Chewable) 81 mg PO DAILY [facility] Diazepam (Valium) 5 mg PO BRK [facility]; Protocol Last Admin: 07/15/18 07:50 Dose: Not Given Diltiazem HCl (Cardizem Cd) 240 mg PO DAILY SARO[facility] Escitalopram Oxalate (Lexapro) 5 mg PO DIN [facility] Last Admin: 07/14/18 21:58 Dose: 5 mg Gabapentin (Neurontin) 300 mg PO BRK [facility] Last Admin: 07/15/18 07:51 Dose: Not Given Losartan Potassium (Cozaar) 25 mg PO HS [facility] Last Admin: 07/14/18 22:00 Dose: Not Given Naproxen (Anaprox) 275 mg PO Q6 PRN PRN Reason: Headache Last Admin: 07/15/18 01:49 Dose: 275 mg Nitroglycerin (Nitrostat Sl Tab) 0.4 mg SL Q5MIN PRN PRN Reason: Pain, Mild (1-3) Pantoprazole Sodium (Protonix Ec Tab) 40 mg PO 0600 [facility] Last Admin: 07/15/18 05:29 Dose: Not Given - Labs Labs: 07/15/18 07:30 07/15/18 07:30 PT 11.7 SECONDS (9.4-12.5) 07/14/18 05:21 INR 1.02 07/14/18 05:21 APTT 27.2 Seconds (25.1-36.5) 07/14/18 05:21 - Constitutional Appears: Non-toxic, No Acute Distress - Head Exam Head Exam: NORMAL INSPECTION, NORMOCEPHALIC - Eye Exam Eye Exam: Normal appearance Pupil Exam: NORMAL ACCOMODATION - ENT Exam ENT Exam: Mucous Membranes Moist, Normal Exam - Neck Exam Neck Exam: Full ROM, Normal Inspection - Respiratory Exam Respiratory Exam: Clear to Ausculation Bilateral, NORMAL BREATHING PATTERN - Cardiovascular Exam Cardiovascular Exam: REGULAR RHYTHM, +S1, +S2 - GI/Abdominal Exam GI & Abdominal Exam: Soft, Normal Bowel Sounds - Extremities Exam Extremities Exam: Full ROM, Normal Capillary Refill - Neurological Exam Neurological Exam: Alert, Awake, Oriented x3 - Psychiatric Exam Psychiatric exam: Normal Affect, Normal Mood - Skin Skin Exam: Dry, Normal Color, Warm Assessment and Plan - Assessment and Plan (Free Text) Assessment: A 46 year old male who came in to the ER due to left sided chest pain which began 2 weeks ago. History of hypertension,diabetes, angina, anxiety, migraine, muscle spasms, questionable spinal stenosis, ex smoker. Patient mentions having a cardiac cath at [facility] 3 years ago with no blockages at that time by Dr. Praveen Tompkins. Troponin normal x 3. For Echo today to evaluate LV function. Out patient stress test.Follow up with Dr. Praveen Tompkins. No evidence of myocardial infarction or heart failure. Cardiac status stable. Plan: Denies chest pain Troponin normal x 3 Rule out acute coronary syndrome Discontinue telemetry For Echo today to evaluate LV function Out patient stress test May follow up with Dr. Praveen Tompkins (cinder pitman) May discharge from cardiac standpoint Continue current treatment Continue current medications Will follow up Plan and treatment discussed with Dr. Kendrick
[2018-07-15] MEDS ORDERED: diltiaZEM 240 mg/24 Hours CD Cap PO SCH ×2 (10:00→17:00)
--- NOTE | 2018-07-15 13:27 | CP.PCM.DIS ---
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 Routine Comment: cp Physician Instructions: Reason For Exam: eval Transition In Care/Readmission Reduction Routine Comment: chest pain Physician Instructions: Reason For Exam: eval Time Spent in preparation of Discharge (in minutes): 35 Hospital Course - Lab Results Lab Results: Most Recent Lab Values WBC 7.2 10^3/uL (4.5-11.0) 07/15/18 07:30 RBC 5.36 10^6/uL (3.5-6.1) 07/15/18 07:30 Hgb 15.8 g/dL (14.0-18.0) 07/15/18 07:30 Hct 45.8 % (42.0-52.0) 07/15/18 07:30 MCV 85.4 fl (80.0-105.0) 07/15/18 07:30 MCH 29.5 pg (25.0-35.0) 07/15/18 07:30 MCHC 34.5 g/dl (31.0-37.0) 07/15/18 07:30 RDW 12.6 % (11.5-14.5) 07/15/18 07:30 Plt Count 251 10^3/uL (120.0-450.0) 07/15/18 07:30 MPV 9.8 fl (7.0-11.0) 07/15/18 07:30 PT 11.7 SECONDS (9.4-12.5) 07/14/18 05:21 INR 1.02 07/14/18 05:21 APTT 27.2 Seconds (25.1-36.5) 07/14/18 05:21 Sodium 139 mmol/L (132-148) 07/15/18 07:30 Potassium 4.7 mmol/L (3.6-5.0) 07/15/18 07:30 Chloride 102 mmol/L (98-107) 07/15/18 07:30 Carbon Dioxide 30 mmol/L (21-33) 07/15/18 07:30 Anion Gap 12 (10-20) 07/15/18 07:30 BUN 12 mg/dL (7-21) 07/15/18 07:30 Creatinine 1.0 mg/dl (0.8-1.5) 07/15/18 07:30 Est GFR ( Amer) > 60 07/15/18 07:30 Est GFR (Non-Af Amer) > 60 07/15/18 07:30 Random Glucose 100 mg/dL (70-110) 07/15/18 07:30 Hemoglobin A1c 5.1 % (4.2-6.5) 07/14/18 10:15 Calcium 9.5 mg/dL (8.4-10.5) 07/15/18 07:30 Phosphorus 3.1 mg/dL (2.5-4.5) 07/14/18 10:15 Magnesium 2.1 mg/dL (1.7-2.2) 07/14/18 10:15 Total Bilirubin 0.7 mg/dL (0.2-1.3) 07/15/18 07:30 AST 42 U/L (17-59) 07/15/18 07:30 ALT 78 U/L (7-56) H 07/15/18 07:30 Alkaline Phosphatase 118 U/L (38-126) 07/15/18 07:30 Lactate Dehydrogenase 443 U/L (333-699) 07/14/18 05:21 Total Creatine Kinase 56 U/L (35-230) 07/14/18 05:21 Troponin I < 0.01 ng/mL 07/14/18 16:39 Total Protein 7.5 g/dL (5.8-8.3) 07/15/18 07:30 Albumin 4.2 g/dL (3.0-4.8) 07/15/18 07:30 Globulin 3.3 gm/dL 07/15/18 07:30 Albumin/Globulin Ratio 1.3 (1.1-1.8) 07/15/18 07:30 Triglycerides 121 mg/dL (35-160) 07/14/18 10:15 Cholesterol 158 mg/dL (130-200) 07/14/18 10:15 LDL Cholesterol Direct 99 mg/dL (0-129) 07/14/18 10:15 HDL Cholesterol 42 mg/dL (29-60) 07/14/18 10:15 TSH 3rd Generation 0.93 mIU/mL (0.46-4.68) 07/14/18 10:15 Urine Opiates Screen Negative (NEGATIVE) 07/14/18 17:35 Urine Methadone Screen Negative (NEGATIVE) 07/14/18 17:35 Ur Barbiturates Screen Positive (NEGATIVE) H 07/14/18 17:35 Ur Phencyclidine Scrn Negative (NEGATIVE) 07/14/18 17:35 Ur Amphetamines Screen Negative (NEGATIVE) 07/14/18 17:35 U Benzodiazepines Scrn Positive (NEGATIVE) H 07/14/18 17:35 U Oth Cocaine Metabols Negative (NEGATIVE) 07/14/18 17:35 U Cannabinoids Screen Negative (NEGATIVE) 07/14/18 17:35 Hepatitis A IgM Ab Negative (NEGATIVE) 07/14/18 10:15 Hep Bs Antigen Negative (NEGATIVE) 07/14/18 10:15 Hep B Core IgM Ab Negative (NEGATIVE) 07/14/18 10:15 Hepatitis C Antibody Negative (NEGATIVE) 07/14/18 10:15 - Hospital Course Hospital Course: Upon admission, 46 year old male with past medical history of HTN, angina, anxiety, migraine presents to ED for left sided chest pain which began 2 weeks ago. Patient states the pain is burning in quality, radiates to his left arm and is also present at rest. Patient states he took nitroglycerin and ASA with some relief in symptoms. Patient had recent visit last week for similar complaints but signed out AMA. Patient mentions having [place] [facility] [place] which did not show any blockages at that time. During hospital course, initial EKG showed NSR without any ST changes. Troponins x3 were <0.01. CXR was negative for acute disease. Patient did not have any chest pain during admission and slept well as well as tolerated diet without complaints. Patient to get outpatient stress test and patient agreed. Patient agreed with discharged today and to follow up with primary care doctor and fast food worker. All of patient's questions were answered. Discharge Exam - Head Exam Head Exam: ATRAUMATIC, NORMAL INSPECTION - Eye Exam Eye Exam: EOMI Pupil Exam: PERRL - ENT Exam ENT Exam: Mucous Membranes Moist - Neck Exam Neck exam: Normal Inspection - Respiratory Exam Respiratory Exam: Clear to PA & Lateral, NORMAL BREATHING PATTERN. absent: Accessory Muscle Use, Wheezes, Respiratory Distress - Cardiovascular Exam Cardiovascular Exam: REGULAR RHYTHM, +S1, +S2 - GI/Abdominal Exam GI & Abdominal Exam: Normal Bowel Sounds, Soft. absent: Firm, Guarding, Tenderness - Extremities Exam Extremities exam: normal inspection Additional comments: no calf tenderness, pedal pulses present B/L - Neurological Exam Neurological exam: Alert, CN II-XII Intact, Oriented x3 - Skin Skin Exam: Normal Color, Warm Discharge Plan - Discharge Medications Prescriptions: Aspirin [Aspirin Chewable] 81 mg PO DAILY #30 chew - Follow Up Plan Condition: STABLE Disposition: HOME/ ROUTINE Instructions: Chest Pain (ED) Additional Instructions: Please follow up with your fast food worker, Dr. Praveen Tompkins within 5-7 days of discharge. You will need an outpatient stress test. Please follow up with your primary care doctor within 5-7 days of discharge. Please continue your home medications. You will be started on daily aspirin 81mg. Please return to the ED for any new or worsening symptoms. 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 Routine Comment: cp Physician Instructions: Reason For Exam: eval Transition In Care/Readmission Reduction Routine Comment: chest pain Physician Instructions: Reason For Exam: eval Hospital Course - Lab Results Lab Results: Most Recent Lab Values WBC 7.2 10^3/uL (4.5-11.0) 07/15/18 07:30 RBC 5.36 10^6/uL (3.5-6.1) 07/15/18 07:30 Hgb 15.8 g/dL (14.0-18.0) 07/15/18 07:30 Hct 45.8 % (42.0-52.0) 07/15/18 07:30 MCV 85.4 fl (80.0-105.0) 07/15/18 07:30 MCH 29.5 pg (25.0-35.0) 07/15/18 07:30 MCHC 34.5 g/dl (31.0-37.0) 07/15/18 07:30 RDW 12.6 % (11.5-14.5) 07/15/18 07:30 Plt Count 251 10^3/uL (120.0-450.0) 07/15/18 07:30 MPV 9.8 fl (7.0-11.0) 07/15/18 07:30 PT 11.7 SECONDS (9.4-12.5) 07/14/18 05:21 INR 1.02 07/14/18 05:21 APTT 27.2 Seconds (25.1-36.5) 07/14/18 05:21 Sodium 139 mmol/L (132-148) 07/15/18 07:30 Potassium 4.7 mmol/L (3.6-5.0) 07/15/18 07:30 Chloride 102 mmol/L (98-107) 07/15/18 07:30 Carbon Dioxide 30 mmol/L (21-33) 07/15/18 07:30 Anion Gap 12 (10-20) 07/15/18 07:30 BUN 12 mg/dL (7-21) 07/15/18 07:30 Creatinine 1.0 mg/dl (0.8-1.5) 07/15/18 07:30 Est GFR ( Amer) > 60 07/15/18 07:30 Est GFR (Non-Af Amer) > 60 07/15/18 07:30 Random Glucose 100 mg/dL (70-110) 07/15/18 07:30 Hemoglobin A1c 5.1 % (4.2-6.5) 07/14/18 10:15 Calcium 9.5 mg/dL (8.4-10.5) 07/15/18 07:30 Phosphorus 3.1 mg/dL (2.5-4.5) 07/14/18 10:15 Magnesium 2.1 mg/dL (1.7-2.2) 07/14/18 10:15 Total Bilirubin 0.7 mg/dL (0.2-1.3) 07/15/18 07:30 AST 42 U/L (17-59) 07/15/18 07:30 ALT 78 U/L (7-56) H 07/15/18 07:30 Alkaline Phosphatase 118 U/L (38-126) 07/15/18 07:30 Lactate Dehydrogenase 443 U/L (333-699) 07/14/18 05:21 Total Creatine Kinase 56 U/L (35-230) 07/14/18 05:21 Troponin I < 0.01 ng/mL 07/14/18 16:39 Total Protein 7.5 g/dL (5.8-8.3) 07/15/18 07:30 Albumin 4.2 g/dL (3.0-4.8) 07/15/18 07:30 Globulin 3.3 gm/dL 07/15/18 07:30 Albumin/Globulin Ratio 1.3 (1.1-1.8) 07/15/18 07:30 Triglycerides 121 mg/dL (35-160) 07/14/18 10:15 Cholesterol 158 mg/dL (130-200) 07/14/18 10:15 LDL Cholesterol Direct 99 mg/dL (0-129) 07/14/18 10:15 HDL Cholesterol 42 mg/dL (29-60) 07/14/18 10:15 TSH 3rd Generation 0.93 mIU/mL (0.46-4.68) 07/14/18 10:15 Urine Opiates Screen Negative (NEGATIVE) 07/14/18 17:35 Urine Methadone Screen Negative (NEGATIVE) 07/14/18 17:35 Ur Barbiturates Screen Positive (NEGATIVE) H 07/14/18 17:35 Ur Phencyclidine Scrn Negative (NEGATIVE) 07/14/18 17:35 Ur Amphetamines Screen Negative (NEGATIVE) 07/14/18 17:35 U Benzodiazepines Scrn Positive (NEGATIVE) H 07/14/18 17:35 U Oth Cocaine Metabols Negative (NEGATIVE) 07/14/18 17:35 U Cannabinoids Screen Negative (NEGATIVE) 07/14/18 17:35 Hepatitis A IgM Ab Negative (NEGATIVE) 07/14/18 10:15 Hep Bs Antigen Negative (NEGATIVE) 07/14/18 10:15 Hep B Core IgM Ab Negative (NEGATIVE) 07/14/18 10:15 Hepatitis C Antibody Negative (NEGATIVE) 07/14/18 10:15 Attending/Attestation - Attestation I have personally seen and examined this patient.: Yes I have fully participated in the care of the patient.: Yes I have reviewed all pertinent clinical information, including history, physical exam and plan: Yes Notes (Text): 07/15/18 13:35 47 year old male with past medical history of hypertension, angina and anxiety who presented with complaint of chest pain. He had serial cardiac enzymes which were negative and ACS was ruled out. He was seen by cardiology who recommended outpatient stress test. Patient is discharged home to follow up with pmd. Follow up with cardiology for outpatient stress test. Nancy Bryan MD Hospitalist.
--- NOTE | 2018-07-15 13:48 | PN ---
DATE: 07/15/2018 REASON FOR CONSULTATION AND FOLLOWUP: Chest pain, atypical. So far, no evidence of acute ND. This note is an addition to the note dictated by nurse practitioner, Ana Maria Hardy. SUBJECTIVE: So far troponins remain flat. The patient had a cardiac catheterization three years ago and it was normal. RECOMMENDATIONS: We will discontinue telemetry, possibly discharge home today, schedule a stress test as an outpatient. I discussed this with the team taking care of the patient. The patient used to follow up with Dr. Praveen Tompkins at [facility], but we will schedule as outpatient here. Chest pain appears to be atypical, musculoskeletal. . So far, troponins x3 remain negative. Thank you Dr. Bryan for providing us the opportunity in taking care of your patient, Nicolas Loco. Vin Kendrick MD
[2018-07-15 13:55] VITALS: BP 134/96; PULSE 89; RESP 16; TEMP 98.1
--- NOTE | 2018-07-15 20:08 | CARD ---
APPROVED REPORT Date of service: 07/15/2018 EXAM: Two-dimensional and M-mode echocardiogram with Doppler and color Doppler. INDICATION CP 2D DIMENSIONS IVSd1.4 (0.7-1.1cm)LVDd4.5 (3.9-5.9cm) PWd1.2 (0.7-1.1cm)LVDs3.1 (2.5-4.0cm) FS (%) 31.5 %LVEF (%)59.7 (>50%) M-Mode DIMENSIONS Left Atrium (MM)3.90 (2.5-4.0cm)Aortic Root3.60 (2.2-3.7cm) Aortic Cusp Exc.2.50 (1.5-2.0cm) Aortic Valve AoV Peak Zkfgtpze135.0cm/Annabel Peak GR.5mmHg Mitral Valve MV E Annxrvqp41.2cm/sMV A Adcgnjmc66.3cm/sE/A ratio1.1 TDI Lateral E' Peak V8.68cm/sMedial E' Peak V6.14cm/sE/Lateral E'6.7 E/Medial E'9.5 Tricuspid Valve TR Peak Mjlnoflo595th/sRAP [id number] Peak Gr.14mmHg [id number] LEFT VENTRICLE The left ventricle is normal size. There is mild concentric left ventricular hypertrophy. The left ventricular function is normal.EF-65% There is normal LV segmental wall motion. The left ventricular diastolic function is normal. No left ventricle thrombus noted on this study. There is no ventricular septal defect visualized. There is no left ventricular aneurysm. There is no mass noted in the left ventricle. RIGHT VENTRICLE The right ventricle is normal size. There is normal right ventricular wall thickness. The right ventricular systolic function is normal. ATRIA The left atrium size is normal. The right atrium size is normal. The interatrial septum is intact with no evidence for an atrial septal defect. AORTIC VALVE The aortic valve is thickened but opens well. No aortic regurgitation is present. There is no aortic valvular stenosis. There is no aortic valvular vegetation. MITRAL VALVE The mitral valve is thickened but opens well. Mitral regurgitation is trace. There is no mitral valve stenosis. There is no evidence of mitral valve prolapse. TRICUSPID VALVE The tricuspid valve is normal in structure. There is trace tricuspid regurgitation.RVSP-24 mmof Hg There is no tricuspid valve stenosis. There is no tricuspid valve prolapse or vegetation. PULMONIC VALVE The pulmonic valve is borderline thickened. There is trace pulmonic valvular regurgitation. There is no pulmonic valvular stenosis. GREAT VESSELS The aortic root is normal in size. The ascending aorta is normal in size. The pulmonary artery is normal. The IVC is normal in size and collapses >50% with inspiration. PERICARDIAL EFFUSION There is no pleural effusion. There is no pericardial effusion. <Conclusion> Normal chamber Size. EF-65%. Trace MR/TR/ PI. RVSP-24 mmof Hg.
== END 2018-07-15 14:50 | disposition home or self-care (01) ==
LOC: ED 05:10 → ERH 06:22 → 2RSO 09:38
PROVIDERS: ADMIT Internal Medicine; ATTEND Internal Medicine
DX: I25.119 Atherosclerotic heart disease of native coronary artery with unspecified angina pectoris (principal); I12.9 Hypertensive chronic kidney disease with stage 1 through stage 4 chronic kidney disease, or unspecified chronic kidney disease; N18.9 Chronic kidney disease, unspecified; G43.909 Migraine, unspecified, not intractable, without status migrainosus; G62.9 Polyneuropathy, unspecified; F32.9 Major depressive disorder, single episode, unspecified; F41.9 Anxiety disorder, unspecified; E11.22 Type 2 diabetes mellitus with diabetic chronic kidney disease; K21.9 Gastro-esophageal reflux disease without esophagitis; Z87.891 Personal history of nicotine dependence
CPT/HCPCS: 36415; 71045; 80053; 80061; 80074; 80324; 80345; 80346; 80349; 80353; 80358; 80361; 82550; 83036; 83615; 83735; 83992; 84100; 84443; 84484; 85027; 85610; 85730; 93005; 93306; 99285; G0378

== ENCOUNTER 2018-10-06 10:24 | Emergency (ER) | payer OTHER ==
[2018-10-06 10:25] VITALS: BMI 34.0
[2018-10-06 10:41] VITALS: BP 133/94; PULSE 91; RESP 18; TEMP 97.7; O2SAT 99
--- NOTE | 2018-10-06 10:54 | ED PDOC ---
Arrival/HPI - General Chief Complaint: ENT Problem Time Seen by Provider: 10/06/18 10:25 Historian: Patient - History of Present Illness Narrative History of Present Illness (Text): 10/06/18 10:50 47yr old male presents today with on and off sore throat x 1 month. pt states he took naproxen last night with improvement. pt states he is able to eat and drink and swallow without difficulty. pt denies fever/chills. no chest pain or shortness of breath. pt denies sick contacts. no dizziness or weakness. no feeling of throat closing. no abd pain. Past Medical History - Provider Review Nursing Documentation Reviewed: Yes - Travel History Have you recently traveled outside [place] w/in the past 3 mons?: No - Past History Past History: Non-Contributing - Infectious Disease Hx of Infectious Diseases: None - Past Medical History Past Medical History: Non-Contributing - Cardiac Hx Cardiac Disorders: Yes Hx Angina: Yes Hx Cardiac Arrhythmia: Yes Hx Hypertension: Yes - Pulmonary Hx Respiratory Disorders: No - Neurological Hx Neurological Disorder: Yes Hx Migraine: Yes - HEENT Hx HEENT Disorder: No - Renal Hx Renal Disorder: Yes Hx Kidney Stones: Yes - Endocrine/Metabolic Hx Endocrine Disorders: No - Hematological/Oncological Hx Blood Disorders: No - Integumentary Hx Dermatological Disorder: No - Musculoskeletal/Rheumatological Hx Musculoskeletal Disorders: No - Gastrointestinal Hx Gastrointestinal Disorders: Yes Hx Gastroesophageal Reflux: Yes - Genitourinary/Gynecological Hx Genitourinary Disorders: No - Psychiatric Hx Psychophysiologic Disorder: Yes Hx Anxiety: Yes Hx Depression: Yes Hx Substance Use: No - Surgical History Hx Cardiac Catheterization: Yes - Anesthesia Hx Anesthesia: Yes Hx Anesthesia Reactions: No Hx Malignant Hyperthermia: No Family/Social History - Physician Review Nursing Documentation Reviewed: Yes Family/Social History: Unknown Family HX Smoking Status: Former Smoker Hx Alcohol Use: Yes (quit beer/liquor 15 yrs ago) Hx Substance Use: No Hx Substance Use Treatment: No Allergies/Home Meds Allergies/Adverse Reactions: Allergies ranitidine [From Zantac] Allergy (Verified 07/14/18 05:12) RASH quetiapine [From Seroquel] Adverse Reaction (Verified 07/14/18 05:12) URTICARIA Home Medications: Home Meds Medication Instructions Recorded Confirmed Gabapentin [Gralise] 300 mg PO DAILY 02/21/17 07/14/18 diaZEpam [Valium] 5 mg PO HS 02/21/17 07/14/18 Butalbital/Aspirin/Caffeine 1 each PO Q8H PRN 04/15/17 07/14/18 [[id number] 50-325-40] Cyclobenzaprine [Flexeril] 5 mg PO DAILY PRN 04/15/17 07/14/18 Nitroglycerin [Nitrotab] 0.4 mg SL PRN PRN 07/17/17 07/14/18 Fluticasone Nasal [Flonase] 1 spray PAYAM DAILY 09/21/17 07/14/18 Diltiazem HCl [Cartia Xt] 240 mg PO DAILY 07/07/18 07/14/18 Escitalopram [Lexapro] 5 mg PO DAILY 07/07/18 07/14/18 Losartan Potassium 25 mg PO HS 07/07/18 07/14/18 diaZEpam [Valium] 2 mg PO DAILY 07/07/18 07/14/18 Review of Systems - Review of Systems Constitutional: absent: Fatigue, Fevers ENT: Sore Throat. absent: Sinus Congestion Respiratory: absent: SOB, Cough Cardiovascular: absent: Chest Pain, Palpitations Gastrointestinal: absent: Abdominal Pain, Nausea, Vomiting Skin: absent: Rash, Pruritis Neurological: absent: Headache, Dizziness Psychiatric: absent: Anxiety, Depression Physical Exam Vital Signs Reviewed: Yes Vital Signs Temp Pulse Resp BP Pulse Ox 10/06/18 10:32 97.7 F 91 H 18 133/94 H 99 Temperature: Afebrile Blood Pressure: Hypertensive Pulse: Regular Respiratory Rate: Normal Appearance: Positive for: Well-Appearing, Non-Toxic, Comfortable Pain Distress: None Mental Status: Positive for: Alert and Oriented X 3 - Systems Exam Head: Present: Atraumatic Pupils: Present: PERRL Extroacular Muscles: Present: EOMI Conjunctiva: Present: Normal Ears: Present: Normal, NORMAL TM. No: Erythema Mouth: Present: Moist Mucous Membranes. No: Drooling, Trismus Pharnyx: Present: Normal. No: ERYTHEMA, EXUDATE, TONSILS ENLARGED, Peritonsilar Swelling, Uvular Deviation, Muffled/Hoarse Voice, Strider, Soft Palate/Uvular Edema Nose (External): Present: Atraumatic Nose (Internal): Present: Normal Inspection Neck: Present: Normal Range of Motion, Trachea Midline. No: Lymphadenopathy Respiratory/Chest: Present: Clear to Auscultation, Good Air Exchange. No: Respiratory Distress, Accessory Muscle Use Cardiovascular: Present: Regular Rate and Rhythm, Normal S1, S2. No: Murmurs Neurological: Present: GCS=15 Skin: Present: Warm, Dry, Normal Color. No: Rashes Psychiatric: Present: Alert, Oriented x 3 Medical Decision Making ED Course and Treatment: 10/06/18 10:55 Patient is nontoxic well appearing in no distress. Vital signs are stable Tolerating p.o. fluids and solids. no trismus, no drooling toradol 30IM amoxicillin Po Patient reassessment: Patient feeling better after medications, vital signs stable. Moist mucous membranes. I advised follow up with primary care physician and ENT specialist within the next 2 days, advised to increase fluids take medications as prescribed and return if symptoms worsen persist or if new symptoms develop pt verbalized understanding of discharge instructions and need for f/u with ENT and PMD. IMPRESSION; pharyngitis Motrin every 6 hours as needed for pain/fever reduction Increase fluids amoxicillin; One tablet 3 times daily x10 days Follow up primary care physician within the next 2 days Follow up with the ENT specialist within the next 2 days. Saltwater gargles, throat lozenges Return if symptoms worsen persist or if new symptoms develop Reassessment Condition: Re-examined, Improved - Medication Orders Current Medication Orders: Ketorolac Tromethamine (Toradol) 30 mg IM STAT STA Stop: 10/06/18 10:50 Disposition/Present on Arrival - Present on Arrival Any Indicators Present on Arrival: No History of DVT/PE: No History of Uncontrolled Diabetes: No Urinary Catheter: No History of Decub. Ulcer: No History Surgical Site Infection Following: None - Disposition Have Diagnosis and Disposition been Completed?: Yes Diagnosis: Pharyngitis Disposition: HOME/ ROUTINE Disposition Time: 12:00 Patient Plan: Discharge Condition: GOOD Discharge Instructions (ExitCare): Sore Throat, Adult (DC) Additional Instructions: Motrin every 6 hours as needed for pain/fever reduction Increase fluids amoxicillin; One tablet 3 times daily x10 days Follow up primary care physician within the next 2 days Follow up with the ENT specialist within the next 2 days. Saltwater gargles, throat lozenges Return if symptoms worsen persist or if new symptoms develop Prescriptions: Amoxicillin 500 mg PO TID #30 tab Ibuprofen [Motrin] 600 mg PO Q6H PRN #20 tab PRN Reason: pain/fever reduction Referrals: Arthur Mora DO [Staff Provider] - Follow up with primary Jodie Mcdermott MD [Medical Doctor] - Follow up with primary [employer] [Outside] - Follow up with primary Forms: [facility] ([place]an), WORK NOTE
== END 2018-10-06 12:45 | disposition home or self-care (01) ==
LOC: ED 10:24
DX: J02.9 Acute pharyngitis, unspecified (principal); I10 Essential (primary) hypertension; Z87.891 Personal history of nicotine dependence
CPT/HCPCS: 96372; 99283; J1885